=== PATIENT | female | born 1960 | race Caucasian/White ===

== ENCOUNTER → 2016-05-18 | Outpatient (CLI) | payer MEDICARE, MEDICAID | LOC: BFHH 16:54 | PROVIDERS: ATTEND Emergency Medicine | DX: E87.1 Hypo-osmolality and hyponatremia (principal); I50.9 Heart failure, unspecified ==

== ENCOUNTER → 2016-05-28 | Outpatient (CLI) | payer MEDICARE, MEDICAID | LOC: BFHH 16:00 | PROVIDERS: ATTEND Emergency Medicine | DX: E87.1 Hypo-osmolality and hyponatremia (principal) ==

== ENCOUNTER 2016-06-03 08:51 | Emergency (ER) | payer MEDICARE, MEDICAID ==
[2016-06-03] MEDS ORDERED: ASPIRIN (CHEWABLE) 81 MG TAB PO ONE (08:57)
--- NOTE | 2016-06-03 09:16 | RAD ---
EXAM DESCRIPTION: XR CHEST 1 VIEW CLINICAL HISTORY: 55 y/o F, dyspnea, chest pain COMPARISON: 12/13/2015. TECHNIQUE: Frontal radiograph of the chest. FINDINGS: The lungs are clear. The heart is at the upper limit of normal in size. There is no pneumothorax or pleural effusion. There is no acute fracture. IMPRESSION: No acute cardiopulmonary abnormality. Electronically signed by: Jean Carlos Silverman MD 06/03/2016 09:14
--- NOTE | 2016-06-03 09:23 | ED.PDOC ---
History of Present Illness - General Chief Complaint: Respiratory Problem Stated Complaint: shortness of breath Time Seen by Provider: 06/03/16 08:56 Source: patient Exam Limitations: no limitations - History of Present Illness Initial Comments: 55 yo F with CHF, IDDM, COPD. Patient presents with dyspnea since this morning. She had chest pain one hour ago that lasted 45 minutes. It was mid-sternal, sharp, non-radiating, + previous episodes, no modifying factors. No history of AMI in her family but her mother has "heart problems". Patient denies hx of AMI. Has chronic right pedal edema. 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 Smokes one ppd. + HTN. Has chronic dry cough. Also complains of a sore throat for one week. No other complaints. Timing/Duration: 1-3 hours Severity: mild Improving Factors: nothing Worsening Factors: nothing Associated Symptoms: chest pain, cough, shortness of breath Allergies/Adverse Reactions: Allergies Protective Adhesive Powder Allergy (Verified 02/05/16 07:11) Sumatriptan [From Imitrex] Allergy (Verified 02/05/16 07:11) Morphine Adverse Reaction (Verified 02/05/16 07:10) Other hallucinations after several doses Home Medications: Ambulatory Orders fentaNYL PATCH 50 MCG/HR [Duragesic Patch 50 MCG/HR] 50 mcg TOP Q72H 04/26/14 Potassium Chloride [Potassium Chloride ER] 20 meq PO BID #20 tab 02/24/15 Aspirin [Didier Low Dose] 81 mg PO DAILY 09/12/15 Atenolol [Tenormin] 50 mg PO DAILY 09/12/15 Gabapentin [Neurontin] 600 mg PO TID 09/12/15 Insulin Detemir [Levemir Pen] 40 unit SUBCU BID 09/12/15 Lisinopril 20 mg PO DAILY 09/12/15 Lorazepam 2 mg PO Q6H 09/12/15 Oral Electrolytes [Thermotabs] 3 tab PO TID 09/12/15 Aripiprazole [Abilify] 15 mg PO DAILY 12/13/15 Bupropion HCl [Wellbutrin Xl] 150 mg PO DAILY 12/13/15 Bupropion HCl [Wellbutrin Xl] 300 mg PO DAILY 12/13/15 Furosemide [Lasix] 80 mg PO DAILY 12/13/15 Insulin Aspart [Novolog] 0 - 12 unit SUBCU .SLIDING SCALE 12/13/15 Insulin Aspart [Novolog] 5 unit SUBCU AC 12/13/15 Loperamide HCl [Imodium A-D] 1 - 2 ea PO TID PRN 12/13/15 Montelukast Sodium [Singulair] 10 mg PO BID 12/13/15 tiZANidine [Zanaflex] 4 mg PO BEDTIME PRN 12/13/15 Cilostazol 50 mg PO BEDTIME 02/05/16 Esomeprazole Magnesium [Nexium] 40 mg PO DAILY 02/05/16 Hydrocodone-Acetaminophen [Hydrocodone Bitartrate/AC] 1 tab PO Q4H PRN 02/05/16 Ondansetron HCl [Zofran] 4 mg PO Q6H PRN #20 tab 02/05/16 Simvastatin [Zocor] 20 mg PO BEDTIME 02/05/16 Spironolactone 100 mg PO DAILY 02/05/16 Sulfa/Trimeth 800/160 (Ds) Tab [Bactrim DS Tab] 1 ea PO BID #6 tab 02/05/16 Tramadol HCl [Ultram] 50 mg PO BID PRN #10 tab 02/05/16 Review of Systems - Review of Systems Constitutional: States: no symptoms reported EENTM: States: see HPI Respiratory: States: see HPI Cardiology: States: see HPI Gastrointestinal/Abdominal: States: no symptoms reported Genitourinary: States: no symptoms reported Musculoskeletal: States: no symptoms reported Skin: States: no symptoms reported Neurological: States: no symptoms reported Endocrine: States: no symptoms reported Hematologic/Lymphatic: States: no symptoms reported Past Medical History (General) - Patient Medical History Hx Seizures: Yes Hx Stroke: Yes - TIA Hx Dementia: No Hx Asthma: Yes Hx of COPD: Yes Hx Cardiac Disorders: Yes - Hypercholesterolemia Hx Congestive Heart Failure: No Hx Pacemaker: No Hx Hypertension: Yes Hx Thyroid Disease: No Hx Diabetes: No Hx Gastroesophageal Reflux: Yes Hx Renal Disease: No Hx Cancer: No Hx of HIV: No Hx Hepatitis C: Yes Hx MRSA: No - Vaccination History Hx Tetanus, Diphtheria Vaccination: Yes Hx Influenza Vaccination: Yes - 2014 Hx Pneumococcal Vaccination: Yes - 2014 - Social History Hx Tobacco Use: Yes Hx Chewing Tobacco Use: No Hx Alcohol Use: No Hx Substance Use: Yes - heroin. quit 1991 Hx Substance Use Treatment: No Hx Depression: No Hx Physical Abuse: No Hx Emotional Abuse: No Hx Suspected Abuse: No - Female History Patient : No Family Medical History - Family History Father Living Status: Cause of : Lung CA Hx Family Hypertension: Yes Hx Family Cancer: Yes Age of Onset (years of age): concha Mother Family History: No Known Living Status: Still Living Hx Family Hypertension: Yes Physical Exam - Physical Exam General Appearance: Alert Ears, Nose, Throat: normal ENT inspection Neck: non-tender, full range of motion, supple Respiratory: other - distant breath sounds, + scant expiratory wheezes in upper lung bautista Cardiovascular/Chest: regular rate, rhythm Gastrointestinal/Abdominal: normal bowel sounds, non tender, soft Extremity: other - 1+ right pedal edema, non-pitting Skin Exam: normal color Lymphatic: no adenopathy Progress - Progress Progress: 06/03/16 11:43 Troponin negative. CXR unremarkable. BNP 23. Patient had an anxiety attack while in the E.D. and was crying. She was given ativan 0.5 mg IV x one and her sx resolved. NS 500 ml bolus x one due to increase in creatinine. Patient asked to wait for a second troponin to be done at 6 hours past her chest pain. She agreed at 5 hours and the troponin was done. However, the patient did not want to wait for a 6 hour and signed out AMA. 06/03/16 13:56 Departure - Departure Clinical Impression: Anxiety disorder, Chest pain Disposition: Left Against Medical Advice Condition: Good Diet: other - as per her primary care physician. Activity: increase activity as tolerated Home Medications: Ambulatory Orders fentaNYL PATCH 50 MCG/HR [Duragesic Patch 50 MCG/HR] 50 mcg TOP Q72H 04/26/14 Potassium Chloride [Potassium Chloride ER] 20 meq PO BID #20 tab 02/24/15 Aspirin [Didier Low Dose] 81 mg PO DAILY 09/12/15 Atenolol [Tenormin] 50 mg PO DAILY 09/12/15 Gabapentin [Neurontin] 600 mg PO TID 09/12/15 Insulin Detemir [Levemir Pen] 40 unit SUBCU BID 09/12/15 Lisinopril 20 mg PO DAILY 09/12/15 Lorazepam 2 mg PO Q6H 09/12/15 Oral Electrolytes [Thermotabs] 3 tab PO TID 09/12/15 Aripiprazole [Abilify] 15 mg PO DAILY 12/13/15 Bupropion HCl [Wellbutrin Xl] 150 mg PO DAILY 12/13/15 Bupropion HCl [Wellbutrin Xl] 300 mg PO DAILY 12/13/15 Furosemide [Lasix] 80 mg PO DAILY 12/13/15 Insulin Aspart [Novolog] 0 - 12 unit SUBCU .SLIDING SCALE 12/13/15 Insulin Aspart [Novolog] 5 unit SUBCU AC 12/13/15 Loperamide HCl [Imodium A-D] 1 - 2 ea PO TID PRN 12/13/15 Montelukast Sodium [Singulair] 10 mg PO BID 12/13/15 tiZANidine [Zanaflex] 4 mg PO BEDTIME PRN 12/13/15 Cilostazol 50 mg PO BEDTIME 02/05/16 Esomeprazole Magnesium [Nexium] 40 mg PO DAILY 02/05/16 Hydrocodone-Acetaminophen [Hydrocodone Bitartrate/AC] 1 tab PO Q4H PRN 02/05/16 Ondansetron HCl [Zofran] 4 mg PO Q6H PRN #20 tab 02/05/16 Simvastatin [Zocor] 20 mg PO BEDTIME 02/05/16 Spironolactone 100 mg PO DAILY 02/05/16 Sulfa/Trimeth 800/160 (Ds) Tab [Bactrim DS Tab] 1 ea PO BID #6 tab 02/05/16 Tramadol HCl [Ultram] 50 mg PO BID PRN #10 tab 02/05/16
[2016-06-03 09:24] VITALS: TEMP 97
[2016-06-03 09:28] VITALS: BP 124/60; O2SAT 94
[2016-06-03] MEDS ORDERED: SODIUM CHLORIDE 0.9% 1000ML 1,000 ML IVS ONE (11:05)
[2016-06-03] MEDS ORDERED: SODIUM CHLORIDE 0.9% 1000ML 500 ML IVS ONE (11:16)
== END 2016-06-03 13:30 | disposition left against medical advice (07) ==
LOC: ER 08:51
DX: R07.9 Chest pain, unspecified (principal); F41.9 Anxiety disorder, unspecified; J44.9 Chronic obstructive pulmonary disease, unspecified; E11.9 Type 2 diabetes mellitus without complications; Z89.512 Acquired absence of left leg below knee; F17.210 Nicotine dependence, cigarettes, uncomplicated; Z86.73 Personal history of transient ischemic attack (TIA), and cerebral infarction without residual deficits; E78.00 Pure hypercholesterolemia, unspecified; I10 Essential (primary) hypertension; K21.9 Gastro-esophageal reflux disease without esophagitis; Z86.19 Personal history of other infectious and parasitic diseases; Z79.899 Other long term (current) drug therapy; Z79.4 Long term (current) use of insulin; Z98.2 Presence of cerebrospinal fluid drainage device; Z88.6 Allergy status to analgesic agent; Z88.8 Allergy status to other drugs, medicaments and biological substances
CPT/HCPCS: 36415; 71010; 80053; 82550; 82553; 83735; 83880; 84484; 85025; 85610; 85730; 93005; J2060; J7030

== ENCOUNTER → 2016-06-25 | Outpatient (CLI) | payer MEDICARE, MEDICAID | END | disposition home or self-care (01) | LOC: BFHH 10:24 | PROVIDERS: ATTEND Emergency Medicine | DX: E22.2 Syndrome of inappropriate secretion of antidiuretic hormone (principal); I50.9 Heart failure, unspecified ==

== ENCOUNTER → 2016-07-10 | Outpatient (CLI) | payer MEDICARE, MEDICAID | LOC: BFHH 09:15 | PROVIDERS: ATTEND Emergency Medicine | DX: E22.2 Syndrome of inappropriate secretion of antidiuretic hormone (principal); I50.9 Heart failure, unspecified; E11.51 Type 2 diabetes mellitus with diabetic peripheral angiopathy without gangrene ==

== ENCOUNTER → 2016-07-25 | Outpatient (CLI) | payer MEDICARE, MEDICAID | END | disposition home or self-care (01) | LOC: BFHH 09:20 | PROVIDERS: ATTEND Emergency Medicine | DX: E87.1 Hypo-osmolality and hyponatremia (principal); E11.51 Type 2 diabetes mellitus with diabetic peripheral angiopathy without gangrene; J44.9 Chronic obstructive pulmonary disease, unspecified; I50.9 Heart failure, unspecified ==

== ENCOUNTER → 2016-08-02 | Outpatient (CLI) | payer MEDICARE, MEDICAID | END | disposition home or self-care (01) | LOC: BFHH 11:12 | PROVIDERS: ATTEND Emergency Medicine | DX: E87.1 Hypo-osmolality and hyponatremia (principal); E11.51 Type 2 diabetes mellitus with diabetic peripheral angiopathy without gangrene; J44.9 Chronic obstructive pulmonary disease, unspecified; I50.9 Heart failure, unspecified ==

== ENCOUNTER 2016-08-04 19:19 | Emergency (ER) | payer MEDICARE, MEDICAID ==
--- NOTE | 2016-08-04 19:52 | ED.PDOC ---
History of Present Illness - General Chief Complaint: General Stated Complaint: Flu like symptoms Time Seen by Provider: 08/04/16 19:51 Source: patient Exam Limitations: no limitations - History of Present Illness Initial Comments: Terrie Velazco 55 y/o male with history of diabetes,chf,copd stated for the last 3 days had nausea,vomiting and diarrhea .Today had generalized body aches, her nausea vomiting gone away but still with watery diarrhea.No ill contact, took Bactrim 2 weeks ago for infection on her bk amputation stump left leg. Timing/Duration: other - 3 days Severity: moderate Improving Factors: nothing Worsening Factors: nothing Associated Symptoms: other - body aches Allergies/Adverse Reactions: Allergies Protective Adhesive Powder Allergy (Verified 02/05/16 07:11) Sulfamethoxazole w/Trimethoprim [From Bactrim] Allergy (Verified 08/04/16 19:25) Sumatriptan [From Imitrex] Allergy (Verified 02/05/16 07:11) Morphine Adverse Reaction (Verified 02/05/16 07:10) Other hallucinations after several doses Home Medications: Ambulatory Orders fentaNYL PATCH 50 MCG/HR [Duragesic Patch 50 MCG/HR] 50 mcg TOP Q72H 04/26/14 Potassium Chloride [Potassium Chloride ER] 20 meq PO BID #20 tab 02/24/15 Aspirin [Didier Low Dose] 81 mg PO DAILY 09/12/15 Atenolol [Tenormin] 50 mg PO DAILY 09/12/15 Gabapentin [Neurontin] 600 mg PO TID 09/12/15 Insulin Detemir [Levemir Pen] 40 unit SUBCU BID 09/12/15 Lisinopril 20 mg PO DAILY 09/12/15 Lorazepam 2 mg PO Q6H 09/12/15 Oral Electrolytes [Thermotabs] 3 tab PO TID 09/12/15 Aripiprazole [Abilify] 15 mg PO DAILY 12/13/15 Bupropion HCl [Wellbutrin Xl] 150 mg PO DAILY 12/13/15 Bupropion HCl [Wellbutrin Xl] 300 mg PO DAILY 12/13/15 Furosemide [Lasix] 80 mg PO DAILY 12/13/15 Insulin Aspart [Novolog] 0 - 12 unit SUBCU .SLIDING SCALE 12/13/15 Insulin Aspart [Novolog] 5 unit SUBCU AC 12/13/15 Loperamide HCl [Imodium A-D] 1 - 2 ea PO TID PRN 12/13/15 Montelukast Sodium [Singulair] 10 mg PO BID 12/13/15 tiZANidine [Zanaflex] 4 mg PO BEDTIME PRN 12/13/15 Cilostazol 50 mg PO BEDTIME 02/05/16 Esomeprazole Magnesium [Nexium] 40 mg PO DAILY 02/05/16 Hydrocodone-Acetaminophen [Hydrocodone Bitartrate/AC] 1 tab PO Q4H PRN 02/05/16 Ondansetron HCl [Zofran] 4 mg PO Q6H PRN #20 tab 02/05/16 Simvastatin [Zocor] 20 mg PO BEDTIME 02/05/16 Spironolactone 100 mg PO DAILY 02/05/16 Sulfa/Trimeth 800/160 (Ds) Tab [Bactrim DS Tab] 1 ea PO BID #6 tab 02/05/16 Tramadol HCl [Ultram] 50 mg PO BID PRN #10 tab 02/05/16 Amoxicillin [Amoxil] 500 mg PO TID #30 cap 08/04/16 Review of Systems - Review of Systems Constitutional: States: see HPI EENTM: States: throat pain Respiratory: States: no symptoms reported Cardiology: States: no symptoms reported Gastrointestinal/Abdominal: States: see HPI Genitourinary: States: no symptoms reported Musculoskeletal: States: no symptoms reported Skin: States: no symptoms reported Neurological: States: no symptoms reported Endocrine: States: no symptoms reported Hematologic/Lymphatic: States: no symptoms reported Past Medical History (General) - Patient Medical History Hx Seizures: Yes Hx Stroke: Yes - TIA Hx Dementia: No Hx Asthma: Yes Hx of COPD: Yes Hx Cardiac Disorders: Yes - Hypercholesterolemia Hx Congestive Heart Failure: Yes Hx Pacemaker: No Hx Hypertension: Yes Hx Thyroid Disease: No Hx Diabetes: No Hx Gastroesophageal Reflux: Yes Hx Renal Disease: No Hx Cancer: No Hx of HIV: No Hx Hepatitis C: Yes Hx MRSA: No Surgical History: other - btl,cts,left b/k amputation - Vaccination History Hx Tetanus, Diphtheria Vaccination: Yes Hx Influenza Vaccination: No Hx Pneumococcal Vaccination: Yes Immunizations Up to Date: Yes - Social History Hx Tobacco Use: Yes Hx Chewing Tobacco Use: No Hx Alcohol Use: No Hx Substance Use: Yes - heroin. quit 1991 Hx Substance Use Treatment: No Hx Depression: No Hx Physical Abuse: No Hx Emotional Abuse: No Hx Suspected Abuse: No - Activities of Daily Living Patient Lives Alone: No Hospice Agency (if applicable):: None Grooming Ability: Independent Eating (Feeding) Ability: Independent Toileting Ability: Standby Assistance - Female History Patient is a Female of Child Bearing Age (10 -59 yrs old): Yes Patient : No Family Medical History - Family History Father Living Status: Cause of : Lung CA Hx Family Hypertension: Yes Hx Family Cancer: Yes - lung-dad Age of Onset (years of age): concha Mother Family History: No Known Living Status: Still Living Hx Family Hypertension: Yes Physical Exam - Physical Exam General Appearance: Alert, No apparent distress Eye Exam: bilateral normal Ears, Nose, Throat: hearing grossly normal, normal ENT inspection, normal pharynx Neck: non-tender, full range of motion, supple, normal inspection Respiratory: chest non-tender, lungs clear, normal breath sounds, no respiratory distress, no accessory muscle use Cardiovascular/Chest: normal peripheral pulses, regular rate, rhythm, no edema, no gallop, no JVD, no murmur Peripheral Pulses: radial,right: 2+, radial,left: 2+ Gastrointestinal/Abdominal: normal bowel sounds, non tender, soft, no organomegaly, no pulsatile mass Back Exam: normal inspection, no CVA tenderness, no vertebral tenderness Extremity: normal range of motion, non-tender, pedal edema, other - B/K amputation left leg Neurologic: no motor/sensory deficits, alert, normal mood/affect, oriented x 3 Skin Exam: normal color, warm/dry, rash - left leg Departure - Departure Clinical Impression: Streptococcal sore throat, Diarrhea Time of Disposition: 21:10 Disposition: Discharge to Home or Self Care Departure Forms: ED Discharge - Pt. Copy, Patient Portal Self Enrollment Instructions: Diarrhea Diet: bland diet - until better Referrals: MEKA ADAME [Primary Care Provider] - 1-2 Weeks Prescriptions: Amoxicillin [Amoxil] 500 mg PO TID #30 cap Home Medications: Ambulatory Orders fentaNYL PATCH 50 MCG/HR [Duragesic Patch 50 MCG/HR] 50 mcg TOP Q72H 04/26/14 Potassium Chloride [Potassium Chloride ER] 20 meq PO BID #20 tab 02/24/15 Aspirin [Didier Low Dose] 81 mg PO DAILY 09/12/15 Atenolol [Tenormin] 50 mg PO DAILY 09/12/15 Gabapentin [Neurontin] 600 mg PO TID 09/12/15 Insulin Detemir [Levemir Pen] 40 unit SUBCU BID 09/12/15 Lisinopril 20 mg PO DAILY 09/12/15 Lorazepam 2 mg PO Q6H 09/12/15 Oral Electrolytes [Thermotabs] 3 tab PO TID 09/12/15 Aripiprazole [Abilify] 15 mg PO DAILY 12/13/15 Bupropion HCl [Wellbutrin Xl] 150 mg PO DAILY 12/13/15 Bupropion HCl [Wellbutrin Xl] 300 mg PO DAILY 12/13/15 Furosemide [Lasix] 80 mg PO DAILY 12/13/15 Insulin Aspart [Novolog] 0 - 12 unit SUBCU .SLIDING SCALE 12/13/15 Insulin Aspart [Novolog] 5 unit SUBCU AC 12/13/15 Loperamide HCl [Imodium A-D] 1 - 2 ea PO TID PRN 12/13/15 Montelukast Sodium [Singulair] 10 mg PO BID 12/13/15 tiZANidine [Zanaflex] 4 mg PO BEDTIME PRN 12/13/15 Cilostazol 50 mg PO BEDTIME 02/05/16 Esomeprazole Magnesium [Nexium] 40 mg PO DAILY 02/05/16 Hydrocodone-Acetaminophen [Hydrocodone Bitartrate/AC] 1 tab PO Q4H PRN 02/05/16 Ondansetron HCl [Zofran] 4 mg PO Q6H PRN #20 tab 02/05/16 Simvastatin [Zocor] 20 mg PO BEDTIME 02/05/16 Spironolactone 100 mg PO DAILY 02/05/16 Sulfa/Trimeth 800/160 (Ds) Tab [Bactrim DS Tab] 1 ea PO BID #6 tab 02/05/16 Tramadol HCl [Ultram] 50 mg PO BID PRN #10 tab 02/05/16 Amoxicillin [Amoxil] 500 mg PO TID #30 cap 08/04/16 Additional Instructions: Avoid greasy spicy foods until better
[2016-08-04] MEDS ORDERED: SODIUM CHLORIDE 0.9% 500ML 500 ML IVS PRN (20:13)
[2016-08-04] MEDS ORDERED: cefTRIAXone SODIUM 1 GM VIAL IM ONE ×2 (20:58→21:02)
[2016-08-04] MEDS ORDERED: HYDROcodone 10MG/APAP 325MG 1 EA TAB PO ONE (20:59)
[2016-08-04] MEDS ORDERED: ONDANSETRON ODT 8 MG TAB SL ONE ×2 (20:59→21:03)
[2016-08-04] MEDS ORDERED: cefTRIAXone SODIUM 1 GM VIAL ONE (21:04)
[2016-08-04] MEDS ORDERED: LIDOCAINE 1% 10 ML VIAL INJ ONE (21:05)
[2016-08-04] MEDS ORDERED: ONDANSETRON ODT 8 MG TAB ONE (21:05)
[2016-08-04 21:38] VITALS: BP 190/90; TEMP 98.3; O2SAT 99
== END 2016-08-04 21:30 | disposition home or self-care (01) ==
LOC: ER 19:19
DX: J02.0 Streptococcal pharyngitis (principal); R19.7 Diarrhea, unspecified; J44.9 Chronic obstructive pulmonary disease, unspecified; E11.9 Type 2 diabetes mellitus without complications; E78.00 Pure hypercholesterolemia, unspecified; I11.0 Hypertensive heart disease with heart failure; I50.9 Heart failure, unspecified; K21.9 Gastro-esophageal reflux disease without esophagitis; Z86.73 Personal history of transient ischemic attack (TIA), and cerebral infarction without residual deficits; G40.909 Epilepsy, unspecified, not intractable, without status epilepticus; Z87.891 Personal history of nicotine dependence; Z79.82 Long term (current) use of aspirin; Z79.4 Long term (current) use of insulin; Z79.899 Other long term (current) drug therapy; Z88.8 Allergy status to other drugs, medicaments and biological substances; Z88.6 Allergy status to analgesic agent; Z89.512 Acquired absence of left leg below knee
CPT/HCPCS: 87502; 87880; J0696

== ENCOUNTER → 2016-08-09 | Outpatient (CLI) | payer MEDICARE, MEDICAID | END | disposition home or self-care (01) | LOC: BFHH 13:24 | PROVIDERS: ATTEND Emergency Medicine | DX: E87.1 Hypo-osmolality and hyponatremia (principal); E11.51 Type 2 diabetes mellitus with diabetic peripheral angiopathy without gangrene; J44.9 Chronic obstructive pulmonary disease, unspecified; I50.9 Heart failure, unspecified ==

== ENCOUNTER → 2016-08-15 | Outpatient (CLI) | payer MEDICARE, MEDICAID | END | disposition home or self-care (01) | LOC: BFHH 09:31 | PROVIDERS: ATTEND Emergency Medicine | DX: E87.1 Hypo-osmolality and hyponatremia (principal); K74.69 Other cirrhosis of liver; J44.9 Chronic obstructive pulmonary disease, unspecified; E11.51 Type 2 diabetes mellitus with diabetic peripheral angiopathy without gangrene ==

== ENCOUNTER → 2016-08-20 | Outpatient (CLI) | payer MEDICARE, MEDICAID | END | disposition home or self-care (01) | LOC: BFHH 10:30 | PROVIDERS: ATTEND Emergency Medicine | DX: E87.1 Hypo-osmolality and hyponatremia (principal) ==

== ENCOUNTER → 2016-08-27 | Outpatient (CLI) | payer MEDICARE, MEDICAID | END | disposition home or self-care (01) | LOC: BFHH 10:27 | PROVIDERS: ATTEND Emergency Medicine | DX: E87.1 Hypo-osmolality and hyponatremia (principal); K74.69 Other cirrhosis of liver; J44.9 Chronic obstructive pulmonary disease, unspecified; E11.51 Type 2 diabetes mellitus with diabetic peripheral angiopathy without gangrene ==

== ENCOUNTER 2016-09-11 04:49 | Emergency (ER) | payer MEDICARE, MEDICAID ==
[2016-09-11 05:04] VITALS: BP 152/81
[2016-09-11] MEDS ORDERED: HYOSCYAMINE SULFATE 0.5 MG/ML VIAL IV ONE (05:13)
[2016-09-11] MEDS ORDERED: IPRATROPIUM/ALBUTEROL 3 ML VIAL NEB ONE (05:15)
--- NOTE | 2016-09-11 05:18 | ED.PDOC ---
History of Present Illness - General Chief Complaint: Abdominal Pain Stated Complaint: stomach cramps, N/V/D Time Seen by Provider: 09/11/16 05:11 Information Source: patient, RN notes reviewed, Vital Signs reviewed Exam Limitations: no limitations - History of Present Illness Initial Comments: Patient is a 56 y/o female who has had severe diarrhea since about midnight. She vomited at 1900 yesterday and then was fine until the diarrhea started. She is having bowel movements every 15 minutes and it is watery. She has taken Pepto Bismol and Immodium without improvement. She is experiencing abdominal cramping which is severe, primarily in the upper abdomen. She started taking Clindamycin yesterday for prevention of an infection on her stump on the left. Abdominal Pain Onset Location: epigastric Pain Radiation: no radiation Quality: severe, cramping Timing/Duration: 4-6 hours Improving Factors: nothing Worsening Factors: nothing Associated Symptoms: diarrhea, nausea/vomiting Review of Systems - Review of Systems Constitutional: States: no symptoms reported. Denies: chills, fever EENTM: States: no symptoms reported Respiratory: States: short of breath Cardiology: States: no symptoms reported Gastrointestinal/Abdominal: States: abdominal pain, diarrhea, nausea, vomiting Genitourinary: States: no symptoms reported Musculoskeletal: States: no symptoms reported Skin: States: other - seeping at end of stump Neurological: States: anxiety Endocrine: States: no symptoms reported Hematologic/Lymphatic: States: no symptoms reported All other Systems: Reviewed and Negative Past Medical History (General) - Patient Medical History Hx Seizures: Yes Hx Stroke: Yes - TIA Hx Dementia: No Hx Asthma: Yes Hx of COPD: Yes Hx Cardiac Disorders: Yes - Hypercholesterolemia Hx Congestive Heart Failure: Yes Hx Pacemaker: No Hx Hypertension: Yes Hx Thyroid Disease: No Hx Diabetes: Yes Hx Gastroesophageal Reflux: Yes Hx Renal Disease: No Hx Cancer: No Hx of HIV: No Hx Hepatitis C: Yes Hx MRSA: No - Vaccination History Hx Tetanus, Diphtheria Vaccination: Yes Hx Influenza Vaccination: No Hx Pneumococcal Vaccination: Yes Immunizations Up to Date: Yes - Social History Hx Tobacco Use: Yes Hx Chewing Tobacco Use: No Hx Alcohol Use: No Hx Substance Use: Yes - heroin. quit 1991 Hx Substance Use Treatment: No Hx Depression: No Feels Threatened In Home Enviroment: No Feels Threatened In a Relationship: No Hx Physical Abuse: No Hx Emotional Abuse: No Hx Suspected Abuse: No - Female History Patient : No Family Medical History - Family History Father Living Status: Cause of : Lung CA Hx Family Hypertension: Yes Hx Family Cancer: Yes - lung-dad Age of Onset (years of age): concha Mother Family History: No Known Living Status: Still Living Hx Family Hypertension: Yes Physical Exam - Physical Exam General Appearance: Alert, Anxious, Obvious distress, Obese, Unkempt Eyes, Ears, Nose, Throat Exam: normal ENT inspection Neck: supple Respiratory: no respiratory distress, no accessory muscle use, rales, rhonchi, wheezing Cardiovascular/Chest: regular rate, rhythm, no murmur Gastrointestinal/Abdominal: abnormal bowel sounds - hyperactive, distended - mildly-primarily upper abdomen, tenderness - upper abdomen Extremity: other - left bka Neurologic: alert, oriented x 3, other - anxious Progress - Progress Progress: 09/11/16 07:[address] Scruggs at 0700. Departure - Departure Disposition: Discharge to Home or Self Care Departure Forms: ED Discharge - Pt. Copy, Patient Portal Self Enrollment Instructions: DI for Abdominal Pain-Adult Referrals: MEKA ADAME [Primary Care Provider] - 1-2 Weeks Home Medications: Ambulatory Orders fentaNYL PATCH 50 MCG/HR [Duragesic Patch 50 MCG/HR] 50 mcg TOP Q72H 04/26/14 Potassium Chloride [Potassium Chloride ER] 20 meq PO BID #20 tab 02/24/15 Aspirin [Didier Low Dose] 81 mg PO DAILY 09/12/15 Atenolol [Tenormin] 50 mg PO DAILY 09/12/15 Gabapentin [Neurontin] 600 mg PO TID 09/12/15 Insulin Detemir [Levemir Pen] 40 unit SUBCU BID 09/12/15 Lisinopril 20 mg PO DAILY 09/12/15 Lorazepam 2 mg PO Q6H 09/12/15 Oral Electrolytes [Thermotabs] 3 tab PO TID 09/12/15 Aripiprazole [Abilify] 15 mg PO DAILY 12/13/15 Bupropion HCl [Wellbutrin Xl] 150 mg PO DAILY 12/13/15 Bupropion HCl [Wellbutrin Xl] 300 mg PO DAILY 12/13/15 Furosemide [Lasix] 80 mg PO DAILY 12/13/15 Insulin Aspart [Novolog] 0 - 12 unit SUBCU .SLIDING SCALE 12/13/15 Insulin Aspart [Novolog] 5 unit SUBCU AC 12/13/15 Loperamide HCl [Imodium A-D] 1 - 2 ea PO TID PRN 12/13/15 Montelukast Sodium [Singulair] 10 mg PO BID 12/13/15 tiZANidine [Zanaflex] 4 mg PO BEDTIME PRN 12/13/15 Cilostazol 50 mg PO BEDTIME 02/05/16 Esomeprazole Magnesium [Nexium] 40 mg PO DAILY 02/05/16 Hydrocodone-Acetaminophen [Hydrocodone Bitartrate/AC] 1 tab PO Q4H PRN 02/05/16 Ondansetron HCl [Zofran] 4 mg PO Q6H PRN #20 tab 02/05/16 Simvastatin [Zocor] 20 mg PO BEDTIME 02/05/16 Spironolactone 100 mg PO DAILY 02/05/16 Sulfa/Trimeth 800/160 (Ds) Tab [Bactrim DS Tab] 1 ea PO BID #6 tab 02/05/16 Tramadol HCl [Ultram] 50 mg PO BID PRN #10 tab 02/05/16 Amoxicillin [Amoxil] 500 mg PO TID #30 cap 08/04/16
[2016-09-11] MEDS ORDERED: SODIUM CHLORIDE 0.9% 1000ML 1,000 ML IVS ONE (06:22)
--- NOTE | 2016-09-11 07:09 | RAD ---
EXAM DESCRIPTION: Abdomen 1 View CLINICAL HISTORY: 56 years Female, wheezing, rales/diarrhea, stomach cramps COMPARISON: None. FINDINGS: The bowel gas pattern is nonobstructive. No suspicious intra-abdominal calcification or mass is seen. The exam is slightly limited by underpenetrated technique and patient habitus. Inferior aspect of the pelvis is excluded. IMPRESSION: No acute findings, only slightly limited as described. Electronically signed by: Peter Keller MD 09/11/2016 7:08 AM CDT
--- NOTE | 2016-09-11 07:11 | RAD ---
EXAM DESCRIPTION: Chest,1 View CLINICAL HISTORY: wheezing, rales/diarrhea, stomach cramps COMPARISON: June 03, 2016 FINDINGS: The heart is at the upper limits of normal size, stable from the prior exam. Mediastinal contours are otherwise unremarkable. There is no airspace consolidation or pleural effusion. The bronchovascular markings are within normal limits, and the lungs are not hyperinflated. There is no pneumothorax or acute fracture. IMPRESSION: Negative exam. Electronically signed by: Peter Keller MD 09/11/2016 7:10 AM CDT
[2016-09-11] MEDS ORDERED: DIPHENOXYLATE HCL/ATROPINE 2.5 MG TAB PO ONE (07:48)
[2016-09-11] MEDS ORDERED: ONDANSETRON INJ 4 MG/2 ML VIAL IV ONE (07:48)
[2016-09-11 09:09] VITALS: TEMP 99; O2SAT 94
== END 2016-09-11 09:00 | disposition home or self-care (01) ==
LOC: ER 04:49
DX: K52.9 Noninfective gastroenteritis and colitis, unspecified (principal); J44.9 Chronic obstructive pulmonary disease, unspecified; E78.00 Pure hypercholesterolemia, unspecified; I11.0 Hypertensive heart disease with heart failure; I50.9 Heart failure, unspecified; E11.9 Type 2 diabetes mellitus without complications; K21.9 Gastro-esophageal reflux disease without esophagitis; Z86.19 Personal history of other infectious and parasitic diseases; Z87.891 Personal history of nicotine dependence; Z86.73 Personal history of transient ischemic attack (TIA), and cerebral infarction without residual deficits; Z79.4 Long term (current) use of insulin; Z79.82 Long term (current) use of aspirin; Z79.899 Other long term (current) drug therapy
CPT/HCPCS: 36415; 71010; 74000; 80053; 85025; 87045; 87046; 94640; J2405; J7030; J7620

== ENCOUNTER → 2016-09-17 | Outpatient (CLI) | payer MEDICARE, MEDICAID | END | disposition home or self-care (01) | LOC: BFHH 14:28 | PROVIDERS: ATTEND Emergency Medicine | DX: E87.1 Hypo-osmolality and hyponatremia (principal) ==

== ENCOUNTER 2016-09-22 07:11 | Emergency (ER) | payer MEDICARE, MEDICAID ==
--- NOTE | 2016-09-22 07:25 | ED.PDOC ---
History of Present Illness - General Chief Complaint: Abdominal Pain Stated Complaint: abdominal pain Time Seen by Provider: 09/22/16 07:15 Source: patient, RN notes reviewed, Vital Signs reviewed Exam Limitations: no limitations - History of Present Illness Initial Comments: Terrie Velazco 56 y/o female with multiple medical problem states that she has been experiencing intemittent shrp cramping abdominal pain for the last one week eating only small amount fearing it might make it worse.Denies diarrhea had hard stools today but had 3 x vomited.EGD and Colonoscopy done by his md. Timing/Duration: intermittent, other - one week Severity: moderate Improving Factors: nothing Worsening Factors: nothing Associated Symptoms: loss of appetite, nausea/vomiting Allergies/Adverse Reactions: Allergies Protective Adhesive Powder Allergy (Verified 09/11/16 05:04) Sulfamethoxazole w/Trimethoprim [From Bactrim] Allergy (Verified 09/11/16 05:04) Sumatriptan [From Imitrex] Allergy (Verified 09/11/16 05:04) Morphine Adverse Reaction (Verified 09/11/16 05:04) Other hallucinations after several doses Home Medications: Ambulatory Orders fentaNYL PATCH 50 MCG/HR [Duragesic Patch 50 MCG/HR] 50 mcg TOP Q72H 04/26/14 Potassium Chloride [Potassium Chloride ER] 20 meq PO BID #20 tab 02/24/15 Aspirin [Didier Low Dose] 81 mg PO DAILY 09/12/15 Atenolol [Tenormin] 50 mg PO DAILY 09/12/15 Gabapentin [Neurontin] 600 mg PO TID 09/12/15 Insulin Detemir [Levemir Pen] 70 unit SUBCU BID 09/12/15 Lisinopril 20 mg PO DAILY 09/12/15 Lorazepam 2 mg PO Q6H 09/12/15 Oral Electrolytes [Thermotabs] 3 tab PO TID 09/12/15 Aripiprazole [Abilify] 15 mg PO DAILY 12/13/15 Furosemide [Lasix] 80 mg PO DAILY 12/13/15 Insulin Aspart [Novolog] 0 - 12 unit SUBCU .SLIDING SCALE 12/13/15 Insulin Aspart [Novolog] 10 unit SUBCU AC 12/13/15 Loperamide HCl [Imodium A-D] 1 - 2 ea PO TID PRN 12/13/15 Montelukast Sodium [Singulair] 10 mg PO BID 12/13/15 tiZANidine [Zanaflex] 4 mg PO BEDTIME PRN 12/13/15 Cilostazol 50 mg PO BEDTIME 02/05/16 Esomeprazole Magnesium [Nexium] 40 mg PO DAILY 02/05/16 Hydrocodone-Acetaminophen [Hydrocodone Bitartrate/AC] 1 tab PO Q4H PRN 02/05/16 Simvastatin [Zocor] 20 mg PO BEDTIME 02/05/16 Ondansetron [Zofran Odt] 4 mg PO Q6HR PRN #20 tab 09/11/16 Hyoscyamine Sulfate [Levsin] 0.125 mg PO Q6HR PRN #30 tab 09/22/16 Ranitidine HCl 150 mg PO BID #60 tab 09/22/16 Review of Systems - Review of Systems Constitutional: States: no symptoms reported EENTM: States: no symptoms reported Respiratory: States: no symptoms reported Cardiology: States: no symptoms reported Gastrointestinal/Abdominal: States: see HPI, abdominal pain Genitourinary: States: no symptoms reported Musculoskeletal: States: no symptoms reported Skin: States: no symptoms reported Neurological: States: no symptoms reported Endocrine: States: no symptoms reported Hematologic/Lymphatic: States: no symptoms reported Past Medical History (General) - Patient Medical History Hx Seizures: Yes Hx Stroke: Yes - TIA Hx Dementia: No Hx Asthma: Yes Hx of COPD: Yes Hx Cardiac Disorders: Yes - Hypercholesterolemia Hx Congestive Heart Failure: Yes - had cardiac arrest Hx Pacemaker: No Hx Hypertension: Yes Hx Thyroid Disease: No Hx Diabetes: Yes Hx Gastroesophageal Reflux: Yes Hx Renal Disease: No Hx Cancer: No Hx of HIV: No Hx Hepatitis C: Yes Hx MRSA: No Surgical History: other - btl,right cts,left bka-leg gangrene Other Surgeries:: cataract-bilateral w/ lens implant - Vaccination History Hx Tetanus, Diphtheria Vaccination: Yes Hx Influenza Vaccination: No Hx Pneumococcal Vaccination: Yes - Social History Hx Tobacco Use: Yes Hx Chewing Tobacco Use: No Hx Alcohol Use: No Hx Substance Use: Yes - heroin. quit 1992 Hx Substance Use Treatment: No Hx Depression: No Hx Physical Abuse: No Hx Emotional Abuse: No Hx Suspected Abuse: No - Activities of Daily Living Patient Lives Alone: No - family Grooming Ability: Independent Eating (Feeding) Ability: Independent Toileting Ability: Minimum Assistance - Female History Patient is a Female of Child Bearing Age (10 -59 yrs old): No Patient : No Family Medical History - Family History Father Living Status: Cause of : Lung CA Hx Family Hypertension: Yes Hx Family Cancer: Yes - lung-dad Age of Onset (years of age): concha Mother Family History: No Known Living Status: Still Living Hx Family Hypertension: Yes Physical Exam - Physical Exam General Appearance: Alert, Anxious, No apparent distress Ears, Nose, Throat: hearing grossly normal, normal ENT inspection, normal pharynx Neck: non-tender, full range of motion Respiratory: chest non-tender, no respiratory distress, no accessory muscle use , other - coarse breath sounds Cardiovascular/Chest: normal peripheral pulses, regular rate, rhythm, no edema, no JVD, no murmur Peripheral Pulses: radial,right: 2+, radial,left: 2+ Gastrointestinal/Abdominal: normal bowel sounds, non tender, soft, tenderness - midabdomen no peritoneal signs Back Exam: normal inspection, no CVA tenderness, no vertebral tenderness Extremity: non-tender, no calf tenderness, pedal edema - right leg, other - BKA amputation left leg Neurologic: alert, normal mood/affect, oriented x 3 Skin Exam: normal color, warm/dry Lymphatic: no adenopathy Progress - Results/Orders Results/Orders: Vital Signs - 8 hr 09/22/16 07:20 Temperature 98.3 F Pulse Rate [ 60 left brachial] Respiratory 20 Rate Blood Pressure 181/74 [left brachial] O2 Sat by Pulse 95 Oximetry 09/22/16 07:28 URINE DRUG SCREEN, 7 ASSAY Stat 09/22/16 07:30 EKG STAT 09/22/16 08:52 Abdomen/Pelvis w/Contrast [CT] Stat 09/22/16 08:53 Hold Metformin x 48Hrs [id number] 09/22/16 09:11 URINALYSIS Stat 09/22/16 Breakfast 2000 Calorie ADA Diet Laboratory Results WBC 5.1 K/mm3 (4.8-10.8) 09/22/16 07:46 RBC 3.86 M/mm3 (4.20-5.40) L 09/22/16 07:46 Hgb 9.8 gm/dL (12.0-16.0) L 09/22/16 07:46 Hct 29.7 % (36.0-47.0) L 09/22/16 07:46 MCV 77.0 fl (81.0-99.0) L 09/22/16 07:46 MCH 25.3 pg (27.0-31.0) L 09/22/16 07:46 MCHC 32.9 g/dL (33.0-37.0) L 09/22/16 07:46 RDW 16.7 % (11.5-14.5) H 09/22/16 07:46 Plt Count 125 K/mm3 (130-400) L 09/22/16 07:46 MPV 9.1 fl (7.40-10.4) 09/22/16 07:46 Absolute Neuts (auto) 3.90 K/uL (1.8-6.8) 09/22/16 07:46 Absolute Lymphs (auto) 0.90 K/uL (1.0-3.4) L 09/22/16 07:46 Absolute Monos (auto) 0.20 K/uL (0.2-0.8) 09/22/16 07:46 Absolute Eos (auto) 0.00 K/uL (0.0-0.4) 09/22/16 07:46 Absolute Basos (auto) 0.10 K/uL (0.0-0.1) 09/22/16 07:46 Neutrophils % 76.5 % (42.0-78.0) 09/22/16 07:46 Lymphocytes % 16.6 % (20.0-50.0) L 09/22/16 07:46 Monocytes % 4.6 % (2.0-9.0) 09/22/16 07:46 Eosinophils % 0.8 % (1.0-5.0) L 09/22/16 07:46 Basophils % 1.5 % (0.0-2.0) 09/22/16 07:46 Sodium 135 mmol/L (135-145) 09/22/16 07:46 Potassium 3.3 mmol/L (3.6-5.0) L 09/22/16 07:46 Chloride 96 mmol/L (101-111) L 09/22/16 07:46 Carbon Dioxide 29 mmol/L (21-31) 09/22/16 07:46 Anion Gap 13.3 (12-18) 09/22/16 07:46 BUN 8 mg/dL (7-18) 09/22/16 07:46 Creatinine 0.93 mg/dL (0.6-1.3) 09/22/16 07:46 BUN/Creatinine Ratio 8.6 (10-20) L 09/22/16 07:46 Random Glucose 267 mg/dL (70-105) H 09/22/16 07:46 Serum Osmolality 277.8 mOsm/L (275-295) 09/22/16 07:46 Calcium 7.6 mg/dL (8.4-10.2) L 09/22/16 07:46 Total Bilirubin 0.6 mg/dL (0.2-1.0) 09/22/16 07:46 AST 36 IU/L (10-42) 09/22/16 07:46 ALT 16 IU/L (10-60) 09/22/16 07:46 Alkaline Phosphatase 60 IU/L (42-121) 09/22/16 07:46 B-Natriuretic Peptide 459.0 pg/ml (0-100) H* 09/22/16 08:52 Serum Total Protein 7.3 gm/dL (6.4-8.2) 09/22/16 07:46 Albumin 2.9 g/dl (3.2-5.5) L 09/22/16 07:46 Globulin 4.4 gm/dL (2.3-3.5) H 09/22/16 07:46 Albumin/Globulin Ratio 0.7 (1.1-1.9) L 09/22/16 07:46 Lipase 30 U/L (22-51) 09/22/16 07:46 09/22/16 07:30 EKG STAT 09/22/16 08:53 Hold Metformin x 48Hrs [id number] 09/22/16 Breakfast 2000 Calorie ADA Diet Laboratory Results WBC 5.1 K/mm3 (4.8-10.8) 09/22/16 07:46 RBC 3.86 M/mm3 (4.20-5.40) L 09/22/16 07:46 Hgb 9.8 gm/dL (12.0-16.0) L 09/22/16 07:46 Hct 29.7 % (36.0-47.0) L 09/22/16 07:46 MCV 77.0 fl (81.0-99.0) L 09/22/16 07:46 MCH 25.3 pg (27.0-31.0) L 09/22/16 07:46 MCHC 32.9 g/dL (33.0-37.0) L 09/22/16 07:46 RDW 16.7 % (11.5-14.5) H 09/22/16 07:46 Plt Count 125 K/mm3 (130-400) L 09/22/16 07:46 MPV 9.1 fl (7.40-10.4) 09/22/16 07:46 Absolute Neuts (auto) 3.90 K/uL (1.8-6.8) 09/22/16 07:46 Absolute Lymphs (auto) 0.90 K/uL (1.0-3.4) L 09/22/16 07:46 Absolute Monos (auto) 0.20 K/uL (0.2-0.8) 09/22/16 07:46 Absolute Eos (auto) 0.00 K/uL (0.0-0.4) 09/22/16 07:46 Absolute Basos (auto) 0.10 K/uL (0.0-0.1) 09/22/16 07:46 Neutrophils % 76.5 % (42.0-78.0) 09/22/16 07:46 Lymphocytes % 16.6 % (20.0-50.0) L 09/22/16 07:46 Monocytes % 4.6 % (2.0-9.0) 09/22/16 07:46 Eosinophils % 0.8 % (1.0-5.0) L 09/22/16 07:46 Basophils % 1.5 % (0.0-2.0) 09/22/16 07:46 Sodium 135 mmol/L (135-145) 09/22/16 07:46 Potassium 3.3 mmol/L (3.6-5.0) L 09/22/16 07:46 Chloride 96 mmol/L (101-111) L 09/22/16 07:46 Carbon Dioxide 29 mmol/L (21-31) 09/22/16 07:46 Anion Gap 13.3 (12-18) 09/22/16 07:46 BUN 8 mg/dL (7-18) 09/22/16 07:46 Creatinine 0.93 mg/dL (0.6-1.3) 09/22/16 07:46 BUN/Creatinine Ratio 8.6 (10-20) L 09/22/16 07:46 Random Glucose 267 mg/dL (70-105) H 09/22/16 07:46 Serum Osmolality 277.8 mOsm/L (275-295) 09/22/16 07:46 Calcium 7.6 mg/dL (8.4-10.2) L 09/22/16 07:46 Total Bilirubin 0.6 mg/dL (0.2-1.0) 09/22/16 07:46 AST 36 IU/L (10-42) 09/22/16 07:46 ALT 16 IU/L (10-60) 09/22/16 07:46 Alkaline Phosphatase 60 IU/L (42-121) 09/22/16 07:46 B-Natriuretic Peptide 459.0 pg/ml (0-100) H* 09/22/16 08:52 Serum Total Protein 7.3 gm/dL (6.4-8.2) 09/22/16 07:46 Albumin 2.9 g/dl (3.2-5.5) L 09/22/16 07:46 Globulin 4.4 gm/dL (2.3-3.5) H 09/22/16 07:46 Albumin/Globulin Ratio 0.7 (1.1-1.9) L 09/22/16 07:46 Lipase 30 U/L (22-51) 09/22/16 07:46 Urine Color Yellow (Yellow) 09/22/16 09:11 Urine Appearance Clear (Clear) 09/22/16 09:11 Urine pH 5.5 (4.5-7.8) 09/22/16 09:11 Ur Specific [place] 1.020 (1.005-1.030) 09/22/16 09:11 Urine Protein 100 mg/dL H 09/22/16 09:11 Urine Glucose (UA) Negative mg/dL (Negative) 09/22/16 09:11 Urine Ketones Negative mg/dL (NEGATIVE) 09/22/16 09:11 Urine Blood Moderate (Negative) H 09/22/16 09:11 Urine Nitrite Negative 09/22/16 09:11 Urine Bilirubin Small (NEGATIVE) H 09/22/16 09:11 Urine Urobilinogen 1.0 mg/dL (0.2-1.0) 09/22/16 09:11 Ur Leukocyte Esterase Negative (Negative) 09/22/16 09:11 Urine RBC 5-10 /hpf H 09/22/16 09:11 Urine WBC 0 /hpf 09/22/16 09:11 Ur Epithelial Cells 1-3 /hpf 09/22/16 09:11 Urine Bacteria 0 09/22/16 09:11 Urine Opiates Screen Positive ng/mL (2000) H 09/22/16 07:28 Urine Barbiturates Negative ng/mL (200) 09/22/16 07:28 Ur Phencyclidine Scrn Negative ng/mL (25) 09/22/16 07:28 U Amphetamin/Meth Scrn Negative ng/mL (1000) 09/22/16 07:28 U Benzodiazepines Scrn Positive ng/mL (200) H 09/22/16 07:28 U Cocaine Metab Screen Negative ng/mL (300) 09/22/16 07:28 U Cannabinoids Screen Negative ng/mL (50) 09/22/16 07:28 1027H Discuss with patient all test result explaining no acute ct abdomen findings that she needs to follow up with her primary md for her stated complaints for further evaluation. - EKG/XRAY/CT EKG: Sinus, no ST T wave changes Comments: Heart Rate 61;qt-487; XRAY: chest - borderline cardiomegaly with central vascular congestion,no tristen pulmonary edema per radiologist CT Ordered: Yes - liver cirrhosis no appy no diverticulitis,no gallstone,no ureterolithiasis Departure - Departure Clinical Impression: Abdominal pain Qualifiers: Abdominal location: generalized Qualified Code(s): R10.84 - Generalized abdominal pain Time of Disposition: 10:33 Disposition: Discharge to Home or Self Care Condition: Fair Departure Forms: ED Discharge - Pt. Copy, Patient Portal Self Enrollment Instructions: DI for Abdominal Pain-Adult Diet: low fat, low cholesterol, low salt diet, other - Avoid spicy,greasy foods Referrals: MEKA ADAME [Primary Care Provider] - 1-2 Weeks Prescriptions: Hyoscyamine Sulfate [Levsin] 0.125 mg PO Q6HR PRN #30 tab PRN Reason: Abdominal Cramping Ranitidine HCl 150 mg PO BID #60 tab Home Medications: Ambulatory Orders fentaNYL PATCH 50 MCG/HR [Duragesic Patch 50 MCG/HR] 50 mcg TOP Q72H 04/26/14 Potassium Chloride [Potassium Chloride ER] 20 meq PO BID #20 tab 02/24/15 Aspirin [Didier Low Dose] 81 mg PO DAILY 09/12/15 Atenolol [Tenormin] 50 mg PO DAILY 09/12/15 Gabapentin [Neurontin] 600 mg PO TID 09/12/15 Insulin Detemir [Levemir Pen] 70 unit SUBCU BID 09/12/15 Lisinopril 20 mg PO DAILY 09/12/15 Lorazepam 2 mg PO Q6H 09/12/15 Oral Electrolytes [Thermotabs] 3 tab PO TID 09/12/15 Aripiprazole [Abilify] 15 mg PO DAILY 12/13/15 Furosemide [Lasix] 80 mg PO DAILY 12/13/15 Insulin Aspart [Novolog] 0 - 12 unit SUBCU .SLIDING SCALE 12/13/15 Insulin Aspart [Novolog] 10 unit SUBCU AC 12/13/15 Loperamide HCl [Imodium A-D] 1 - 2 ea PO TID PRN 12/13/15 Montelukast Sodium [Singulair] 10 mg PO BID 12/13/15 tiZANidine [Zanaflex] 4 mg PO BEDTIME PRN 12/13/15 Cilostazol 50 mg PO BEDTIME 02/05/16 Esomeprazole Magnesium [Nexium] 40 mg PO DAILY 02/05/16 Hydrocodone-Acetaminophen [Hydrocodone Bitartrate/AC] 1 tab PO Q4H PRN 02/05/16 Simvastatin [Zocor] 20 mg PO BEDTIME 02/05/16 Ondansetron [Zofran Odt] 4 mg PO Q6HR PRN #20 tab 09/11/16 Hyoscyamine Sulfate [Levsin] 0.125 mg PO Q6HR PRN #30 tab 09/22/16 Ranitidine HCl 150 mg PO BID #60 tab 09/22/16
[2016-09-22 07:26] VITALS: TEMP 98.3
[2016-09-22] MEDS ORDERED: LACTATED RINGERS 1,000 ML IVS ONE (07:26)
[2016-09-22] MEDS ORDERED: DICYCLOMINE HCL INJ 20 MG/2 ML AMP IM ONE (07:29)
[2016-09-22] MEDS ORDERED: PANTOPRAZOLE INJECTION 80 MG in SODIUM CHLORIDE 0.9% 100ML 80 ML IVPB ONE (07:29)
[2016-09-22] MEDS ORDERED: PANTOPRAZOLE SODIUM IV 40 MG VIAL ONE (08:00)
[2016-09-22] MEDS ORDERED: SODIUM CHLORIDE 0.9% 100ML 100 ML IVPB ONE (08:00)
[2016-09-22] MEDS ORDERED: HYDROcodone 10MG/APAP 325MG 1 EA TAB PO ONE (08:02)
--- NOTE | 2016-09-22 08:02 | RAD ---
Procedure: XR CHEST 1 VIEW Exam Date: 09/22/2016 Ordering Provider: Josr Islas Clinical Indication: sob Comparison: 09/11/2016 Findings: Cardiac silhouette: Borderline enlarged Pulmonary vasculature : Prominence of the central pulmonary vasculature and interstitium bilaterally. Mediastinal contour: Normal Aortic contour: Normal Focal lung consolidation: None Pleural effusion: No large pleural effusions Pneumothorax: None Acute bony or soft tissue abnormality: None Impression: 1. Borderline cardiomegaly with central vascular congestion. 2. No tristen pulmonary edema. Electronically signed by: Bhavin Carr MD 09/22/2016 8:01 AM CDT
[2016-09-22] MEDS ORDERED: fentaNYL CITRATE INJ 50 MCG/ML AMP IV ONE (08:47)
[2016-09-22 09:00] VITALS: O2SAT 94
[2016-09-22] MEDS ORDERED: HYOSCYAMINE SULFATE 0.5 MG/ML VIAL IV ONE (09:01)
[2016-09-22] MEDS ORDERED: INSULIN DETEMIR 100 UNITS/ML PEN SUBCU ONE (09:38)
--- NOTE | 2016-09-22 09:51 | CT ---
PROCEDURE: Abdomen/Pelvis w/Contrast HISTORY: pain Indication: Abdominal pain Comparison: 02/27/2016 and 05/27/2015 . Technique: CT of the abdomen and pelvis was done with intravenous contrast. Images were obtained from the lung base to the level of the pubic symphysis in axial plane, followed by orthogonal sagittal and coronal reconstruction. Oral contrast was not given for the study. The patient was injected with contrast intravenously, without any documented immediate adverse reactions. This exam was performed according to our departmental dose-optimization program, which includes automated exposure control, adjustment of the mA and/or KV according to the patient's size and/or use of iterative reconstruction technique. FINDINGS: Images through the lung bases do not show any focal infiltrates or pleural effusions. There is a stable 3 mm noncalcified nodule in the periphery of the right middle lobe of the lung, unchanged since May 2015 The liver once again shows a nodular contour, suspicious for underlying changes of cirrhosis and there is mild hepatomegaly. Spleen remains enlarged, measuring 18 cm in length. Note is made of mild perisplenic varices The gallbladder, pancreas and the bilateral adrenal glands appear unremarkable. The bilateral kidneys enhance with contrast in a normal fashion. The urinary bladder is unremarkable . The bilateral ureters and the bilateral periureteral soft tissues and fat planes are unremarkable. The small bowel appears unremarkable, without any evidence of small bowel obstruction or bowel wall thickening. There is no CT evidence of acute appendicitis, pericecal inflammatory change or ileocecal mesenteric adenitis. The ileocecal junction appears unremarkable. There is no CT evidence of acute colonic diverticulitis or colitis or large bowel obstruction. The splenic and portal veins are of normal caliber, without any filling defects. There is no pathological lymphadenopathy in the retroperitoneum or in the pelvic region. There is no evidence of free fluid or free air in the abdomen or the pelvic region. There is no clinically significant abdominal aortic aneurysm. There is no clinically significant inguinal or ventral hernia. The visualized lumbar spine shows underlying degenerative change at L5/S1 level . The paravertebral soft tissues are unremarkable. The remainder of the pelvic structures are unremarkable. IMPRESSION: The liver once again shows a nodular contour, suspicious for underlying changes of cirrhosis and there is mild hepatomegaly. Spleen remains enlarged, measuring 18 cm in length. Note is made of mild perisplenic varices. There is a stable 3 mm noncalcified nodule in the periphery of the right middle lobe of the lung, unchanged since May 2015. As per the best practices no further follow-up of this nodule is suggested Electronically signed by: Eron Mcmahan MD 09/22/2016 9:51 AM CDT
[2016-09-22 11:01] VITALS: BP 172/82
== END 2016-09-22 10:44 | disposition home or self-care (01) ==
LOC: ER 07:11
DX: R10.84 Generalized abdominal pain (principal); J44.9 Chronic obstructive pulmonary disease, unspecified; I11.0 Hypertensive heart disease with heart failure; I50.9 Heart failure, unspecified; E11.9 Type 2 diabetes mellitus without complications; B19.20 Unspecified viral hepatitis C without hepatic coma; Z86.74 Personal history of sudden cardiac arrest; Z86.73 Personal history of transient ischemic attack (TIA), and cerebral infarction without residual deficits; Z87.891 Personal history of nicotine dependence; Z89.512 Acquired absence of left leg below knee
CPT/HCPCS: 36415; 71010; 74177; 80053; 80307; 81001; 83690; 83880; 85025; 93005; J0500; J1815; J3010; J7050; J7120

== ENCOUNTER → 2016-09-24 | Outpatient (CLI) | payer MEDICARE, MEDICAID | END | disposition home or self-care (01) | LOC: BFHH 12:08 | PROVIDERS: ATTEND Emergency Medicine | DX: E87.1 Hypo-osmolality and hyponatremia (principal) ==

== ENCOUNTER → 2016-10-01 | Outpatient (CLI) | payer MEDICARE, MEDICAID | END | disposition home or self-care (01) | LOC: BFHH 10:56 | PROVIDERS: ATTEND Emergency Medicine | DX: E87.1 Hypo-osmolality and hyponatremia (principal) ==

== ENCOUNTER 2016-10-09 05:00 | Emergency (ER) | payer MEDICARE, MEDICAID ==
[2016-10-09 05:20] VITALS: BP 158/88; TEMP 95.6; O2SAT 100
--- NOTE | 2016-10-09 05:25 | ED.PDOC ---
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 Had pain and swelling of her thumb afterwards. Occurred: this evening Pain - Upper Extremity: moderate: Hand, left Method of Injury: fell Improving Factors: rest Worsening Factors: movement Associated Symptoms: no head/neck injuries Allergies/Adverse Reactions: Allergies Protective Adhesive Powder Allergy (Verified 10/09/16 05:20) Sulfamethoxazole w/Trimethoprim [From Bactrim] Allergy (Verified 10/09/16 05:20) Sumatriptan [From Imitrex] Allergy (Verified 10/09/16 05:20) Morphine Adverse Reaction (Verified 10/09/16 05:20) Other hallucinations after several doses Home Medications: Ambulatory Orders RX: fentaNYL PATCH 50 MCG/HR [Duragesic Patch 50 MCG/HR] 50 mcg TOP Q72H RX: Atenolol [Tenormin] 50 mg PO DAILY 09/12/15 RX: Gabapentin [Neurontin] 600 mg PO TID 09/12/15 RX: Insulin Detemir [Levemir Pen] 70 unit SUBCU BID 09/12/15 RX: Lisinopril 20 mg PO DAILY 09/12/15 RX: Lorazepam 2 mg PO TID 09/12/15 RX: Oral Electrolytes [Thermotabs] 3 tab PO TID 09/12/15 RX: Aripiprazole [Abilify] 15 mg PO DAILY 12/13/15 RX: Furosemide [Lasix] 80 mg PO DAILY 12/13/15 RX: Insulin Aspart [Novolog] 0 - 12 unit SUBCU .SLIDING SCALE 12/13/15 RX: Insulin Aspart [Novolog] 10 unit SUBCU AC 12/13/15 RX: Loperamide HCl [Imodium A-D] 1 - 2 ea PO TID PRN 12/13/15 RX: Montelukast [Singulair] 10 mg PO BEDTIME 12/13/15 RX: tiZANidine [Zanaflex] 4 mg PO BEDTIME 12/13/15 Esomeprazole Magnesium [Nexium] 40 mg PO DAILY 02/05/16 RX: Cilostazol 50 mg PO BEDTIME 02/05/16 Simvastatin [Zocor] 20 mg PO DAILY 02/05/16 Ondansetron [Zofran Odt] 4 mg PO Q6HR PRN #20 tab 09/11/16 Hyoscyamine Sulfate [Levsin] 0.125 mg PO Q6HR PRN #30 tab 09/22/16 RX: Ranitidine HCl 150 mg PO BID #60 tab 09/22/16 HYDROcodone 10MG/APAP 325MG [[place] 10/325] 1 tab PO Q4HR PRN 10/09/16 Mirtazapine [Remeron] 15 mg PO BEDTIME 10/09/16 RX: Potassium Chloride [Potassium Chloride ER] 20 meq PO DAILY 10/09/16 RX: Spironolactone 25 mg PO DAILY 10/09/16 Trolamine Salicylate [Aspercreme] 10 % EX TID #1 tube 10/09/16 Review of Systems - Review of Systems Constitutional: States: no symptoms reported EENTM: States: no symptoms reported Respiratory: States: no symptoms reported Cardiology: States: no symptoms reported Gastrointestinal/Abdominal: States: no symptoms reported Genitourinary: States: no symptoms reported Musculoskeletal: States: joint pain - left thumb, joint swelling Skin: States: no symptoms reported Neurological: States: no symptoms reported Endocrine: States: no symptoms reported Hematologic/Lymphatic: States: no symptoms reported Past Medical History (General) - Patient Medical History Hx Seizures: Yes Hx Stroke: Yes - TIA Hx Dementia: No Hx Asthma: Yes Hx of COPD: Yes Hx Cardiac Disorders: Yes - Hypercholesterolemia Hx Congestive Heart Failure: Yes - had cardiac arrest Hx Pacemaker: No Hx Hypertension: Yes Hx Thyroid Disease: No Hx Diabetes: Yes Hx Gastroesophageal Reflux: Yes Hx Renal Disease: No Hx Cancer: No Hx of HIV: No Hx Hepatitis C: Yes Hx MRSA: No Surgical History: other - btl,right CTS,left BKA-leg gangrene,fransisco.cataract w/ iol implant - Vaccination History Hx Tetanus, Diphtheria Vaccination: Yes Hx Influenza Vaccination: No Hx Pneumococcal Vaccination: Yes Immunizations Up to Date: Yes - Social History Hx Tobacco Use: Yes Hx Chewing Tobacco Use: No Hx Alcohol Use: No Hx Substance Use: Yes - heroin. quit 1991 Hx Substance Use Treatment: No Hx Depression: No Feels Threatened In Home Enviroment: No Feels Threatened In a Relationship: No Hx Physical Abuse: No Hx Emotional Abuse: No Hx Suspected Abuse: No - Activities of Daily Living Patient Lives Alone: No - Grooming Ability: Independent Eating (Feeding) Ability: Independent Toileting Ability: Minimum Assistance - Female History Patient is a Female of Child Bearing Age (10 -59 yrs old): No Patient : No Family Medical History - Family History Father Age (years): 74 Living Status: Cause of : Lung CA Hx Family Hypertension: Yes Hx Family Cancer: Yes - lung-dad Age of Onset (years of age): concha Mother Family History: No Known Living Status: Still Living Hx Family Hypertension: Yes Physical Exam - Physical Exam General Appearance: Alert, Anxious, No apparent distress Eyes, Ears, Nose, Throat Exam: PERRL/EOMI, TMs normal, pharynx normal Neck: non-tender, full range of motion, supple Cardiovascular/Respiratory: regular rate, rhythm, no M/R/G, normal peripheral pulses, no JVD, normal breath sounds Abdominal Exam: non-tender, no organomegaly Back Exam: normal inspection, no CVA tenderness, no vertebral tenderness Shoulder Exam: normal inspection, no evidence of injury Elbow/Forearm Exam: normal inspection, no evidence of injury Wrist Exam: normal inspection, no evidence of injury Hand Exam: limited ROM - left thumb, soft tissue tenderness, swelling Neuro/Tendon: normal sensation, normal motor functions, normal tendon functions , no evidence tendon injury Mental Status: alert, oriented x 3 Skin Exam: normal color, warm/dry Progress - EKG/XRAY/CT XRAY: hand - left minimally displaced fracture proximal phalanx thumb either chronic or acute/radiologist Procedures - Splinting Left Thumb Pre-Made Type: velcro Splint: thumb spica Pre-Proc Neuro Vasc Exam: normal Post-Proc Neuro Vasc Exam: normal Departure - Departure Clinical Impression: Avulsion fracture of left thumb Qualifiers: Encounter type: initial encounter Fracture type: closed Qualified Code(s): S62.502A - Fracture of unspecified phalanx of left thumb, initial encounter for closed fracture Time of Disposition: 06:12 Disposition: Discharge to Home or Self Care Departure Forms: ED Discharge - Pt. Copy, Patient Portal Self Enrollment Instructions: Finger Fracture, DI for Finger Fracture Referrals: MEKA ADAME [Primary Care Provider] - 1-2 Weeks Prescriptions: Trolamine Salicylate [Aspercreme] 10 % EX TID #1 tube Home Medications: Ambulatory Orders RX: fentaNYL PATCH 50 MCG/HR [Duragesic Patch 50 MCG/HR] 50 mcg TOP Q72H RX: Atenolol [Tenormin] 50 mg PO DAILY 09/12/15 RX: Gabapentin [Neurontin] 600 mg PO TID 09/12/15 RX: Insulin Detemir [Levemir Pen] 70 unit SUBCU BID 09/12/15 RX: Lisinopril 20 mg PO DAILY 09/12/15 RX: Lorazepam 2 mg PO TID 09/12/15 RX: Oral Electrolytes [Thermotabs] 3 tab PO TID 09/12/15 RX: Aripiprazole [Abilify] 15 mg PO DAILY 12/13/15 RX: Furosemide [Lasix] 80 mg PO DAILY 12/13/15 RX: Insulin Aspart [Novolog] 0 - 12 unit SUBCU .SLIDING SCALE 12/13/15 RX: Insulin Aspart [Novolog] 10 unit SUBCU AC 12/13/15 RX: Loperamide HCl [Imodium A-D] 1 - 2 ea PO TID PRN 12/13/15 RX: Montelukast [Singulair] 10 mg PO BEDTIME 12/13/15 RX: tiZANidine [Zanaflex] 4 mg PO BEDTIME 12/13/15 Esomeprazole Magnesium [Nexium] 40 mg PO DAILY 02/05/16 RX: Cilostazol 50 mg PO BEDTIME 02/05/16 Simvastatin [Zocor] 20 mg PO DAILY 02/05/16 Ondansetron [Zofran Odt] 4 mg PO Q6HR PRN #20 tab 09/11/16 Hyoscyamine Sulfate [Levsin] 0.125 mg PO Q6HR PRN #30 tab 09/22/16 RX: Ranitidine HCl 150 mg PO BID #60 tab 09/22/16 HYDROcodone 10MG/APAP 325MG [[place] 10/325] 1 tab PO Q4HR PRN 10/09/16 Mirtazapine [Remeron] 15 mg PO BEDTIME 10/09/16 RX: Potassium Chloride [Potassium Chloride ER] 20 meq PO DAILY 10/09/16 RX: Spironolactone 25 mg PO DAILY 10/09/16 Trolamine Salicylate [Aspercreme] 10 % EX TID #1 tube 10/09/16 Additional Instructions: Continue with ice pack 20 minutes 3 x a day during waking hours only until better;elevate left hand 20 degrees at bedtime until better
[2016-10-09] MEDS ORDERED: HYDROcodone 7.5MG/APAP 325MG 1 EA TAB PO ONE ×2 (05:42)
[2016-10-09] MEDS ORDERED: HYDROcodone 7.5MG/APAP 325MG 1 EA TAB ONE (05:44)
--- NOTE | 2016-10-09 06:03 | RAD ---
Procedure: XR HAND 3 OR MORE VIEWS Exam Date: 10/09/2016 Ordering Provider: Josr Islas Clinical Indication: fall Comparison: 09/19/2015 Findings: Minimally displaced fracture at the base of the proximal phalanx of the thumb may be chronic. There is no adjacent soft tissue swelling appreciated. No other fracture or dislocation in the left hand. There are no lytic or sclerotic lesions. There is no radiopaque foreign body. There is no subcutaneous gas. Impression: 1.Minimally displaced fracture at the base of the proximal phalanx of the thumb may be chronic. There is no adjacent soft tissue swelling appreciated. 2.No other fracture or dislocation in the left hand. Electronically signed by: Bhavin Carr MD 10/09/2016 6:04 AM CDT
== END 2016-10-09 06:21 | disposition home or self-care (01) ==
LOC: ER 05:00
DX: S62.502A Fracture of unspecified phalanx of left thumb, initial encounter for closed fracture (principal); I11.0 Hypertensive heart disease with heart failure; I50.9 Heart failure, unspecified; E78.00 Pure hypercholesterolemia, unspecified; E11.9 Type 2 diabetes mellitus without complications; K21.9 Gastro-esophageal reflux disease without esophagitis; J44.9 Chronic obstructive pulmonary disease, unspecified; Z86.74 Personal history of sudden cardiac arrest; Z88.6 Allergy status to analgesic agent; Z88.8 Allergy status to other drugs, medicaments and biological substances; Z86.19 Personal history of other infectious and parasitic diseases; Z79.4 Long term (current) use of insulin; Z87.891 Personal history of nicotine dependence; Z86.73 Personal history of transient ischemic attack (TIA), and cerebral infarction without residual deficits; Z79.899 Other long term (current) drug therapy; W06.XXXA Fall from bed, initial encounter; Y92.003 Bedroom of unspecified non-institutional (private) residence as the place of occurrence of the external cause

== ENCOUNTER → 2016-10-09 | Outpatient (CLI) | payer MEDICARE, MEDICAID | END | disposition home or self-care (01) | LOC: BFHH 10:16 | PROVIDERS: ATTEND Emergency Medicine | DX: E87.1 Hypo-osmolality and hyponatremia (principal); L03.116 Cellulitis of left lower limb; E11.51 Type 2 diabetes mellitus with diabetic peripheral angiopathy without gangrene; J44.9 Chronic obstructive pulmonary disease, unspecified ==

== ENCOUNTER → 2016-10-15 | Outpatient (CLI) | payer MEDICARE, MEDICAID | END | disposition home or self-care (01) | LOC: BFHH 11:18 | PROVIDERS: ATTEND Emergency Medicine | DX: E87.1 Hypo-osmolality and hyponatremia (principal); L03.116 Cellulitis of left lower limb; J44.9 Chronic obstructive pulmonary disease, unspecified ==

== ENCOUNTER 2016-10-18 12:03 | Emergency (ER) | payer MEDICARE, MEDICAID ==
[2016-10-18 12:17] VITALS: TEMP 97.9
[2016-10-18] MEDS ORDERED: METOCLOPRAMIDE HCL INJ 10 MG/2 ML VIAL IV ONE (12:24)
[2016-10-18] MEDS ORDERED: SODIUM CHLORIDE 0.9% 1000ML 1,000 ML IVS ONE (12:25)
[2016-10-18] MEDS ORDERED: HYOSCYAMINE SULFATE 0.5 MG/ML VIAL IV ONE (12:25)
--- NOTE | 2016-10-18 12:26 | ED.PDOC ---
History of Present Illness - General Chief Complaint: GI Problem Stated Complaint: hurts all over Time Seen by Provider: 10/18/16 12:23 Information Source: patient, RN notes reviewed - History of Present Illness Initial Comments: SHE ATE SOME CANNED SOUP LAST NIGHT AND A POTATO WITH BAXTER. SHE DID WELL UNTIL THIS AM WHEN SHE STARTED WITH VOMITING AND SOME DIARRHEA, APPROXIMATELY 6 EPISODES. NOW IN THE ED. SHE HAS DIABETES AND ONE YEAR AGO HAD A BKA. Abdominal Pain Onset Location: generalized abdomen Quality: moderate Timing/Duration: 4-6 hours Worsening Factors: nothing Associated Symptoms: denies symptoms Review of Systems - Review of Systems Constitutional: States: weakness. Denies: chills, fever EENTM: Denies: eye pain, blurred vision Respiratory: States: no symptoms reported. Denies: cough, orthopnea Cardiology: States: no symptoms reported Gastrointestinal/Abdominal: States: abdominal pain, diarrhea, vomiting Genitourinary: States: no symptoms reported Musculoskeletal: States: no symptoms reported Skin: States: no symptoms reported Neurological: States: no symptoms reported Endocrine: States: no symptoms reported Hematologic/Lymphatic: States: no symptoms reported Past Medical History (General) - Patient Medical History Hx Seizures: No Hx Stroke: No Hx Dementia: No Hx Asthma: No Hx of COPD: Yes Hx Cardiac Disorders: Yes Hx Congestive Heart Failure: No Hx Pacemaker: No Hx Hypertension: Yes Hx Thyroid Disease: No Hx Diabetes: Yes Hx Gastroesophageal Reflux: Yes Hx Renal Disease: No Hx Cancer: No Hx of HIV: No Hx Hepatitis C: Yes Hx MRSA: No - Vaccination History Hx Tetanus, Diphtheria Vaccination: Yes Hx Influenza Vaccination: No Hx Pneumococcal Vaccination: Yes - Social History Hx Tobacco Use: Yes Hx Chewing Tobacco Use: No Hx Alcohol Use: No Hx Substance Use: No Hx Substance Use Treatment: No Hx Depression: Yes Hx Physical Abuse: No Hx Emotional Abuse: No Hx Suspected Abuse: No - Female History Patient is a Female of Child Bearing Age (10 -59 yrs old): No Patient : No Family Medical History - Family History Father Age (years): 74 Living Status: Cause of : Lung CA Hx Family Hypertension: Yes Hx Family Cancer: Yes - lung-dad Age of Onset (years of age): concha Mother Family History: No Known Living Status: Still Living Hx Family Hypertension: Yes Physical Exam - Physical Exam General Appearance: Alert, Anxious, Restless - ACTIVELY VOMITING Eyes, Ears, Nose, Throat Exam: normal ENT inspection Neck: non-tender Respiratory: chest non-tender, lungs clear, normal breath sounds, no respiratory distress Cardiovascular/Chest: normal peripheral pulses, regular rate, rhythm, no edema, no gallop Peripheral Pulses: Other - BKA LEFT LOWER LEG Gastrointestinal/Abdominal: normal bowel sounds, distended, tenderness - DIFFUSE ABDOMINAL TENDERNESS Back Exam: normal inspection Extremity: pedal edema - ON THE RIGHT LEG Neurologic: integrity engineer II-XII nml as tested, alert Skin Exam: normal color Lymphatic: no adenopathy Progress - Progress Progress: 10/18/16 15:12 CBC IS REPORTED: WBC OF 4.8, 74% NEUTROPHILS, CMP: CREAT 0.9, UA IS NORMAL Departure - Departure Clinical Impression: Gastroenteritis and colitis, viral Time of Disposition: 15:14 Disposition: Discharge to Home or Self Care Departure Forms: ED Discharge - Pt. Copy, Patient Portal Self Enrollment Diet: bland diet Referrals: MEKA ADAME [Primary Care Provider] - 1-2 Weeks Prescriptions: Metoclopramide Tab [Reglan Tab] 10 mg PO TID 14 Days Home Medications: Ambulatory Orders fentaNYL PATCH 50 MCG/HR [Duragesic Patch 50 MCG/HR] 50 mcg TOP Q72H 04/26/14 Atenolol [Tenormin] 50 mg PO DAILY 09/12/15 Gabapentin [Neurontin] 600 mg PO TID 09/12/15 Insulin Detemir [Levemir Pen] 70 unit SUBCU BID 09/12/15 Lisinopril 20 mg PO DAILY 09/12/15 Lorazepam 2 mg PO TID 09/12/15 Oral Electrolytes [Thermotabs] 3 tab PO TID 09/12/15 Aripiprazole [Abilify] 15 mg PO DAILY 12/13/15 Furosemide [Lasix] 80 mg PO DAILY 12/13/15 Insulin Aspart [Novolog] 0 - 12 unit SUBCU .SLIDING SCALE 12/13/15 Insulin Aspart [Novolog] 10 unit SUBCU AC 12/13/15 Loperamide HCl [Imodium A-D] 1 - 2 ea PO TID PRN 12/13/15 Montelukast [Singulair] 10 mg PO BEDTIME 12/13/15 tiZANidine [Zanaflex] 4 mg PO BEDTIME 12/13/15 Cilostazol 50 mg PO BEDTIME 02/05/16 Esomeprazole Magnesium [Nexium] 40 mg PO DAILY 02/05/16 Simvastatin [Zocor] 20 mg PO DAILY 02/05/16 Ondansetron [Zofran Odt] 4 mg PO Q6HR PRN #20 tab 09/11/16 Hyoscyamine Sulfate [Levsin] 0.125 mg PO Q6HR PRN #30 tab 09/22/16 Ranitidine HCl 150 mg PO BID #60 tab 09/22/16 HYDROcodone 10MG/APAP 325MG [[place] 10/325] 1 tab PO Q4HR PRN 10/09/16 Mirtazapine [Remeron] 15 mg PO BEDTIME 10/09/16 Potassium Chloride [Potassium Chloride ER] 20 meq PO DAILY 10/09/16 Spironolactone 25 mg PO DAILY 10/09/16 Trolamine Salicylate [Aspercreme] 10 % EX TID #1 tube 10/09/16 Metoclopramide Tab [Reglan Tab] 10 mg PO TID 14 Days 10/18/16
[2016-10-18] MEDS ORDERED: MORPHINE SULFATE INJ 10 MG/ML VIAL IV ONE (14:25)
[2016-10-18] MEDS ORDERED: ONDANSETRON INJ 4 MG/2 ML VIAL IV ONE (14:27)
[2016-10-18 15:46] VITALS: O2SAT 97
[2016-10-18 15:47] VITALS: BP 164/71
== END 2016-10-18 15:46 | disposition home or self-care (01) ==
LOC: ER 12:03
DX: A08.4 Viral intestinal infection, unspecified (principal); J44.9 Chronic obstructive pulmonary disease, unspecified; I10 Essential (primary) hypertension; E11.9 Type 2 diabetes mellitus without complications; K21.9 Gastro-esophageal reflux disease without esophagitis; B19.20 Unspecified viral hepatitis C without hepatic coma; Z87.891 Personal history of nicotine dependence; Z79.4 Long term (current) use of insulin; Z79.899 Other long term (current) drug therapy
CPT/HCPCS: 80053; 81001; 83690; 85025; J2270; J2405; J2765; J7030

== ENCOUNTER → 2016-10-22 | Outpatient (CLI) | payer MEDICARE, MEDICAID | END | disposition home or self-care (01) | LOC: BFHH 12:00 | PROVIDERS: ATTEND Emergency Medicine | DX: E87.1 Hypo-osmolality and hyponatremia (principal); E11.51 Type 2 diabetes mellitus with diabetic peripheral angiopathy without gangrene; J44.9 Chronic obstructive pulmonary disease, unspecified; R30.0 Dysuria ==

== ENCOUNTER 2016-10-27 00:11 | Inpatient (IN) | payer MEDICARE, MEDICAID ==
[2016-10-27] MEDS ORDERED: IPRATROPIUM/ALBUTEROL 3 ML VIAL NEB ONE (00:33)
--- NOTE | 2016-10-27 00:49 | RAD ---
EXAM DESCRIPTION: Chest,1 View CLINICAL HISTORY: 56 years Female hypoxia COMPARISON: 09/22/2016 FINDINGS: Heart appears mildly prominent. There is prominence of the central bony vasculature similar to the previous study. No new area of consolidation is noted. IMPRESSION: Cardiomegaly with central pulmonary vascular congestion and mild peribronchial or cuffing. Findings may reflect developing edema or infectious etiology No tristen consolidation Electronically signed by: Carley Torres 10/27/2016 12:48 AM CDT
[2016-10-27] MEDS ORDERED: FUROSEMIDE INJ 100 MG/10 ML VIAL IV ONE (01:09)
--- NOTE | 2016-10-27 01:19 | ED.PDOC ---
History of Present Illness - General Chief Complaint: Neuro Symptoms/Deficits Stated Complaint: altered mental status Time Seen by Provider: 10/27/16 00:24 Source: patient, family Exam Limitations: clinical condition - History of Present Illness Initial Comments: Patient presents with AMS since about noon. Her said that she was confused and reaching for "things that weren't there". He also states that she has become increasingly sleepy. Often nodding off during the middle of a conversatin. He is not aware of any other symptoms. She says that she is short of breath and sleepy. No other history is available from her. Timing/Duration: other - 12 hours Severity: moderate Improving Factors: nothing Worsening Factors: nothing Associated Symptoms: shortness of breath Allergies/Adverse Reactions: Allergies Protective Adhesive Powder Allergy (Verified 10/27/16 00:58) Sulfamethoxazole w/Trimethoprim [From Bactrim] Allergy (Verified 10/27/16 00:58) Sumatriptan [From Imitrex] Allergy (Verified 10/27/16 00:58) Morphine Adverse Reaction (Verified 10/27/16 00:58) Other hallucinations after several doses Home Medications: Ambulatory Orders fentaNYL PATCH 50 MCG/HR [Duragesic Patch 50 MCG/HR] 50 mcg TOP Q72H 04/26/14 Atenolol [Tenormin] 50 mg PO DAILY 09/12/15 Gabapentin [Neurontin] 600 mg PO TID 09/12/15 Insulin Detemir [Levemir Pen] 70 unit SUBCU BID 09/12/15 Lisinopril 20 mg PO DAILY 09/12/15 Lorazepam 2 mg PO TID 09/12/15 Oral Electrolytes [Thermotabs] 3 tab PO TID 09/12/15 Aripiprazole [Abilify] 15 mg PO DAILY 12/13/15 Furosemide [Lasix] 80 mg PO DAILY 12/13/15 Insulin Aspart [Novolog] 0 - 12 unit SUBCU .SLIDING SCALE 12/13/15 Insulin Aspart [Novolog] 10 unit SUBCU AC 12/13/15 Loperamide HCl [Imodium A-D] 1 - 2 ea PO TID PRN 12/13/15 Montelukast [Singulair] 10 mg PO BEDTIME 12/13/15 tiZANidine [Zanaflex] 4 mg PO BEDTIME 12/13/15 Cilostazol 50 mg PO BEDTIME 02/05/16 Esomeprazole Magnesium [Nexium] 40 mg PO DAILY 02/05/16 Simvastatin [Zocor] 20 mg PO DAILY 02/05/16 Ondansetron [Zofran Odt] 4 mg PO Q6HR PRN #20 tab 09/11/16 Hyoscyamine Sulfate [Levsin] 0.125 mg PO Q6HR PRN #30 tab 09/22/16 Ranitidine HCl 150 mg PO BID #60 tab 09/22/16 HYDROcodone 10MG/APAP 325MG [[place] 10/325] 1 tab PO Q4HR PRN 10/09/16 Mirtazapine [Remeron] 15 mg PO BEDTIME 10/09/16 Potassium Chloride [Potassium Chloride ER] 20 meq PO DAILY 10/09/16 Spironolactone 25 mg PO DAILY 10/09/16 Trolamine Salicylate [Aspercreme] 10 % EX TID #1 tube 10/09/16 Metoclopramide Tab [Reglan Tab] 10 mg PO TID 14 Days 10/18/16 Review of Systems - Review of Systems Constitutional: States: no symptoms reported EENTM: States: no symptoms reported Respiratory: States: see HPI Cardiology: States: no symptoms reported Gastrointestinal/Abdominal: States: no symptoms reported Unable to Obtain Due To: condition, clinical condition Past Medical History (General) - Patient Medical History Hx Seizures: No Hx Stroke: No Hx Dementia: No Hx Asthma: No Hx of COPD: Yes Hx Cardiac Disorders: Yes Hx Congestive Heart Failure: No Hx Pacemaker: No Hx Hypertension: Yes Hx Thyroid Disease: No Hx Diabetes: Yes Hx Gastroesophageal Reflux: Yes Hx Renal Disease: No Hx Cancer: No Hx of HIV: No Hx Hepatitis C: Yes Hx MRSA: No - Vaccination History Hx Tetanus, Diphtheria Vaccination: Yes Hx Influenza Vaccination: No Hx Pneumococcal Vaccination: Yes - Social History Hx Tobacco Use: Yes Hx Chewing Tobacco Use: No Hx Alcohol Use: No Hx Substance Use: No Hx Substance Use Treatment: No Hx Depression: Yes Hx Physical Abuse: No Hx Emotional Abuse: No Hx Suspected Abuse: No - Female History Patient : No Family Medical History - Family History Father Age (years): 74 Living Status: Cause of : Lung CA Hx Family Hypertension: Yes Hx Family Cancer: Yes - lung-dad Age of Onset (years of age): concha Mother Family History: No Known Living Status: Still Living Hx Family Hypertension: Yes Physical Exam - Physical Exam General Appearance: Lethargic Eye Exam: bilateral normal Respiratory: other - Inspiratory and expiratory wheezes in right upper lobe. Expiratory wheezes in left upper lobe Cardiovascular/Chest: regular rate, rhythm Gastrointestinal/Abdominal: normal bowel sounds, non tender, soft Extremity: other - Left AKA. Right non-pitting pedal edema. Neurologic: no motor/sensory deficits Skin Exam: normal color Progress - Progress Progress: 10/27/16 01:45 EKG showed NSR with no ST changes nor T wave inversions. No LBBB. Troponin negative. BNP 264. CXR showed developing congestion vs. infiltrate. wbc wnl. ABG wnl, see below. Patient given Lasix 80 mg IV x one. Solumedrol 62.5 mg IV x one. Admitted for CHF exacerbation, COPD exacerbation, and hypoxia. Laboratory Tests 10/27/16 10/27/16 10/27/16 00:30 00:45 00:50 WBC RBC Hgb Hct MCV MCH MCHC RDW Plt Count MPV Absolute Neuts (auto) Absolute Lymphs (auto) Absolute Monos (auto) Absolute Eos (auto) Absolute Basos (auto) Neutrophils % Lymphocytes % Monocytes % Eosinophils % Basophils % PT INR PTT (SP) pCO2 47 H pO2 68 L HCO3 25.0 ABG pH 7.350 ABG O2 Saturation 94.0 L ABG Base Excess -0.3 ABG Deoxyhemoglobin 5.6 H Oxyhemoglobin % 88.1 L Carboxyhemoglobin % 5.6 H Methemoglobin % Sat 0.7 Calc Total Hemoglobin 8.7 L Sodium 132 L Potassium 4.1 Chloride 98 L Carbon Dioxide 26 Anion Gap 12.1 BUN 24 H Creatinine 1.87 H BUN/Creatinine Ratio 12.8 POC Glucose 142 H Random Glucose 144 H Serum Osmolality 271.1 L Calcium 7.5 L Total Bilirubin 0.8 AST 28 ALT 12 Alkaline Phosphatase 59 Creatine Kinase 143 H CK-MB (CK-2) 2.5 CK-MB (CK-2) % Not Reportable Troponin I < 0.02 B-Natriuretic Peptide 264.0 H* Serum Total Protein 7.7 Albumin 2.9 L Globulin 4.8 H Albumin/Globulin Ratio 0.6 L 06/17/17 06/17/17 00:50 00:50 WBC 5.8 RBC 3.86 L Hgb 9.6 L Hct 29.4 L MCV 76.2 L MCH 24.8 L MCHC 32.5 L RDW 17.9 H Plt Count 142 MPV 9.0 Absolute Neuts (auto) 4.10 Absolute Lymphs (auto) 1.00 Absolute Monos (auto) 0.50 Absolute Eos (auto) 0.10 Absolute Basos (auto) 0.10 Neutrophils % 71.8 Lymphocytes % 17.7 L Monocytes % 7.9 Eosinophils % 1.3 Basophils % 1.3 PT 13.4 H INR 1.190 PTT (SP) 31.3 pCO2 pO2 HCO3 ABG pH ABG O2 Saturation ABG Base Excess ABG Deoxyhemoglobin Oxyhemoglobin % Carboxyhemoglobin % Methemoglobin % Sat Calc Total Hemoglobin Sodium Potassium Chloride Carbon Dioxide Anion Gap BUN Creatinine BUN/Creatinine Ratio POC Glucose Random Glucose Serum Osmolality Calcium Total Bilirubin AST ALT Alkaline Phosphatase Creatine Kinase CK-MB (CK-2) CK-MB (CK-2) % Troponin I B-Natriuretic Peptide Serum Total Protein Albumin Globulin Albumin/Globulin Ratio - EKG/XRAY/CT CT Ordered: No CT Interpretation Call Back: No Departure - Departure Clinical Impression: Hypoxia, COPD exacerbation, CHF (congestive heart failure), NYHA class II Disposition: Admit Patient Condition: Fair Departure Forms: ED Discharge - Pt. Copy, Patient Portal Self Enrollment Diet: other - as per hospitalist Activity: other - as per hospitalist Referrals: MEKA ADAME [Primary Care Provider] - 1-2 Weeks Home Medications: Ambulatory Orders fentaNYL PATCH 50 MCG/HR [Duragesic Patch 50 MCG/HR] 50 mcg TOP Q72H 04/26/14 Atenolol [Tenormin] 50 mg PO DAILY 09/12/15 Gabapentin [Neurontin] 600 mg PO TID 09/12/15 Insulin Detemir [Levemir Pen] 70 unit SUBCU BID 09/12/15 Lisinopril 20 mg PO DAILY 09/12/15 Lorazepam 2 mg PO TID 09/12/15 Oral Electrolytes [Thermotabs] 3 tab PO TID 09/12/15 Aripiprazole [Abilify] 15 mg PO DAILY 12/13/15 Furosemide [Lasix] 80 mg PO DAILY 12/13/15 Insulin Aspart [Novolog] 0 - 12 unit SUBCU .SLIDING SCALE 12/13/15 Insulin Aspart [Novolog] 10 unit SUBCU AC 12/13/15 Loperamide HCl [Imodium A-D] 1 - 2 ea PO TID PRN 12/13/15 Montelukast [Singulair] 10 mg PO BEDTIME 12/13/15 tiZANidine [Zanaflex] 4 mg PO BEDTIME 12/13/15 Cilostazol 50 mg PO BEDTIME 02/05/16 Esomeprazole Magnesium [Nexium] 40 mg PO DAILY 02/05/16 Simvastatin [Zocor] 20 mg PO DAILY 02/05/16 Ondansetron [Zofran Odt] 4 mg PO Q6HR PRN #20 tab 09/11/16 Hyoscyamine Sulfate [Levsin] 0.125 mg PO Q6HR PRN #30 tab 09/22/16 Ranitidine HCl 150 mg PO BID #60 tab 09/22/16 HYDROcodone 10MG/APAP 325MG [[place] 10/325] 1 tab PO Q4HR PRN 10/09/16 Mirtazapine [Remeron] 15 mg PO BEDTIME 10/09/16 Potassium Chloride [Potassium Chloride ER] 20 meq PO DAILY 10/09/16 Spironolactone 25 mg PO DAILY 10/09/16 Trolamine Salicylate [Aspercreme] 10 % EX TID #1 tube 10/09/16 Metoclopramide Tab [Reglan Tab] 10 mg PO TID 14 Days 10/18/16
[2016-10-27] MEDS ORDERED: methylPREDNISolone SODIUM SUC 125 MG/2 ML VIAL IV ONE (01:29)
[2016-10-27] MEDS ORDERED: MAGNESIUM HYDROXIDE 30 ML UD PO PRN (02:18)
[2016-10-27] MEDS ORDERED: DEXTROSE 50% 25 GM/50 ML SYG IV PRN (02:18)
[2016-10-27] MEDS ORDERED: ONDANSETRON INJ 4 MG/2 ML VIAL IV PRN (02:18)
[2016-10-27] MEDS ORDERED: ACETAMINOPHEN 325 MG TAB PO PRN (02:18)
[2016-10-27] MEDS ORDERED: GLUCAGON INJ 1 MG VIAL SUBCU PRN (02:18)
[2016-10-27] MEDS ORDERED: NITROGLYCERIN 0.4 MG 25 EA TAB SL PRN (02:18)
[2016-10-27] MEDS ORDERED: ALBUTEROL SULFATE 2.5 MG/3 ML VIAL NEB PRN (02:18)
[2016-10-27] MEDS ORDERED: SODIUM CHLORIDE 0.9% (FLUSH) 10 ML SYG IV PRN (02:18)
[2016-10-27] MEDS ORDERED: IV SET AND CAP CHANGE INJ INJ SCH (02:30)
[2016-10-27] MEDS ORDERED: SODIUM CHLORIDE 0.9% 1000ML 1,000 ML IVS PRN (02:52)
[2016-10-27] MEDS ORDERED: MEROPENEM 1 GM in SODIUM CHL 0.9% 50ML MIN-BAG+ 50 ML IVPB SCH (03:00)
[2016-10-27] MEDS ORDERED: SODIUM CHL 0.9% 50ML MIN-BAG+ 50 ML IVPB ONE (03:02)
[2016-10-27] MEDS ORDERED: MEROPENEM 1 GM VIAL IVPB ONE (03:02)
[2016-10-27 05:54] VITALS: BP 168/99; TEMP 98.9; O2SAT 97
[2016-10-27] MEDS ORDERED: INSULIN LISPRO 100 UNITS/ML PEN SUBCU SCH (07:00)
--- NOTE | 2016-10-27 07:12 | CT ---
EXAM: CT head without contrast. INDICATION: Headache. TECHNIQUE: Contiguous axial CT images of the brain. Intravenous contrast: Absent. DLP 773 mGy-cm. This exam was performed according to our departmental dose-optimization program, which includes automated exposure control, adjustment of the mA and/or kV according to patient size and/or use of iterative reconstruction technique. COMPARISON: None. FINDINGS: Subcutaneous: Unremarkable. No acute intracranial hemorrhage. No midline shift. No mass effect. Ventricles: No hydrocephalus. Kilpatrick-white differentiation preserved. Paranasal sinuses/mastoid air cells: Visualized portions are aerated. Bones/orbits: Visualized portions are unremarkable. IMPRESSION: 1. No CT evidence of acute intracranial hemorrhage. Electronically signed by: Jean Carlos Silverman MD 10/27/2016 7:11 AM CDT Workstation: [id number]
[2016-10-27] MEDS ORDERED: IPRATROPIUM/ALBUTEROL 3 ML VIAL NEB SCH (08:00)
[2016-10-27] MEDS ORDERED: NYSTATIN POWDER 15GM BTTL TOP SCH (09:00)
[2016-10-27] MEDS ORDERED: FUROSEMIDE INJ 40 MG/4 ML VIAL IV SCH (09:00)
--- NOTE | 2016-10-28 12:36 | SSS ---
SUPERVISING PHYSICIAN: Wade Mills M.D. CHIEF COMPLAINT: Altered mental status. Dysuria. HISTORY OF PRESENT ILLNESS: Ms. Velazco is a 56 year-old female patient that presented to the Emergency Department with complaint by her family that she had an acute mental status change that started around noon. Her noted that she had been confused and was reaching for things that were not there. He also noted that she had become increasingly sleepy. She is often nodding off during the middle of her conversations and meals. She notes that she was short of breath and sleepy, and was actually alert and easily arousable in the Emergency Department. Laboratory studies were completed and showed CBC to have a white count of 5.8, hemoglobin 9.6, hematocrit 29.4 with differential showing to be within normal limits. Blood gas analysis showed pH of 7.35 with PO2 of 68 with PCO2 of 47 with bicarb 25, satting 94% on 2 liters nasal cannula. Chemistries showed a low sodium of 132, potassium 4.1, BUN 24, creatinine 1.87. Blood sugar is 144, lactic acid 1, serum osmolality 271. Liver function showed to be within normal limits as well as troponin was less than 0.02. She had a slightly elevated BNP of 264 with TSH of 2.83. Urinalysis showed a small amount of blood, positive nitrites with a moderate amount of leukocyte esterase with microscopic revealing greater than 50 WBCs and 2+ bacteria. Toxicology screen showed positive for opioids and Benzodiazepines, negative for all other substances tested. She also had a rapid Strep that was positive. Given her symptomology, Dr. Cabello felt that the patient was having a mild exacerbation of her congestive heart failure and requested that the patient be placed in Observation for further treatment and evaluation. The patient was placed in Observation in stable condition. PAST MEDICAL HISTORY: 1. Hypertension. 2. Gastroesophageal reflux disease. 3. Chronic anxiety disorder. 4. Diabetes mellitus on insulin therapy. 5. Hyponatremia. 6. Hypomagnesemia. 7. 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 PAST SURGICAL HISTORY: 1. Tubal ligation. 2. History of tracheostomy. 3. Upper and lower endoscopies. 4. Left lczzm-xds-ssor amputation in August of 2015. CURRENT MEDICATIONS: Please refer to the list of nurses' verified medicines in the electronic medical records. ALLERGIES: HYDROCODONE, EVEN THOUGH SHE DOES TAKE MORPHINE WITHOUT ANY PROBLEMS. FAMILY HISTORY: Lung cancer, hypertension and diabetes. SOCIAL HISTORY: The patient is disabled. She currently smokes over a pack a day. She sees Dr. Gtz in [place] in the clinic and has had pain management in the past. She denies any illicit or alcohol usage. REVIEW OF SYSTEMS: The patient denies any fevers, chills or weakness. Just notes that she is somewhat sleepy. HEENT: No hearing or visual disturbances. LUNGS: She has some shortness of breath with a cough but is not producing sputum and as noted in the History of Present Illness has had some dyspnea prior to admission. CARDIOVASCULAR: No significant palpitations or chest pains. GASTROINTESTINAL: Notes that she has had problems in the past with her gallbladder and is awaiting gallbladder surgery, but currently has no discomfort. She was previously in the [facility] this past week for gastroenteritis but is no longer having diarrhea or any abdominal pains. GENITOURINARY: Notes that she has been having dysuria for the last several days. NEUROLOGIC: She has no focal weakness. She does have significant phantom pain to the left lower leg stump. PHYSICAL EXAMINATION: VITAL SIGNS: Temperature on admission was 100.8, prior to discharge it was 98.9. Pulse 61, blood pressure 142/73, respirations 18, satting 93% on room air at discharge. She was showing temperature 98.9 with pulse 69 and blood pressure 168/99, satting 97% on nasal cannula at rest with respirations 20. Admission weight was 135.9 kg. GENERAL: The patient is lethargic but appears to be comfortable and she is easily arousable, and actually smiles when you start asking her questions. HEENT: Tympanic membranes are occluded bilaterally with cerumen. Oropharynx is pink and moist without any lesions. There is no jugular venous distention. CHEST: Some mild inspiratory and expiratory wheezing in the upper right lobe. No rhonchi or rales are noted. CARDIOVASCULAR: Heart is regular rate and rhythm without appreciable murmurs, gallops, or rubs. ABDOMEN: Soft, non-tender. Positive bowel sounds, but obese. EXTREMITIES: Left dpnlf-rvy-pzlk amputation. No edema, cyanosis or clubbing on he right lower extremity. NEUROLOGIC: On exam once awake, cranial nerves II-XII are grossly intact. Facial features are symmetrical. Extraocular movements are within normal limits. There is no nystagmus. There are no obvious motor or sensory deficits. She is alert and oriented times three. LABORATORY: White count on admission was 5.8, hemoglobin 9.6, hematocrit 24.4. RBC indices indicate a hyperchromic microcytic anemia likely of chronic illness with platelet count 142,000. Differential shows to be within normal limits. Coagulation studies showed PT 13.4, PTT 31.3. Blood gas analysis showed pH of 7.35 with bicarb 25, PO2 of 68, PCO2 of 47, satting 94% on 2 liters nasal cannula. Chemistries showed low sodium at 132 with potassium 4.1, BUN 24, creatinine 1.87, blood sugar 144. Troponin was less than 0.02. BNP was elevated at 264. Urinalysis showed positive nitrites, small amount of blood with moderate leukocyte esterase with microscopic revealing greater than 50 WBCs and 2+ bacteria. Toxicology screen showed positive for opioids and Benzodiazepines, with negative for all other substances tested. She had a Group A Strep that was positive. MICROBIOLOGY: Two sets of blood cultures remain negative at time of discharge. Urine culture was pending. Flu swab for both A and B by PCR was negative. RADIOLOGY: Chest x-ray in the Emergency Department prior to admission per radiology interpretation showed cardiomegaly with central pulmonary vascular congestion with mild peribronchial cuffing reflective of developing anemia or infectious etiology. Head CT was completed prior to discharge on the Medical/ Surgical floor and per radiology interpretation there was no CT evidence of acute intracranial hemorrhage. ASSESSMENT: 1. Exacerbation of congestive heart failure, unknown etiology, likely a systolic/ diastolic component secondary to chronic obstructive pulmonary disease and severe obesity showing improvement after Lasix and oxygen. 2. Febrile illness with a positive Streptococcus screen and an underlying urinary tract infection. 3. Acute mental status change felt to be secondary to some mild hypoxemia as noted on her ABG as well as contributing to the underlying urinary tract infection. 4. Morbid obesity. 5. Diabetes mellitus type 2 on insulin, poorly controlled. 6. Hypertension. 7. Chronic pain on multiple pain medicines, including Fentanyl, Hydrocodone as well as Zanaflex and other similar medications. 8. Microcytic hyperchromic anemia likely of chronic illness. 9. Hyponatremia likely secondary to ongoing diuretic usage. 10. Renal insufficiency with probable prerenal azotemia secondary to dehydration from chronic diuresis with Spironolactone with a normal potassium. HOSPITAL COURSE: The patient was placed in Observation for treatment of underlying urinary tract infection and started on Meropenem as review of previous culture results showed that she had multiple urinary tract infections with Escherichia coli that was becoming highly resistant. She was also found to have a positive Strep screen and before initiation of any other therapy, the patient decided she wanted to leave against medical advice. She did receive Lasix in the Emergency Department and showed good diuresis with the Lynne and was stable hemodynamically. The patient was adamant that she was leaving AMA and her was present. At that point, the patient was much more alert. She was advised to be careful with the Fentanyl patches and her other opioid medications, and to seek medical treatment for the underlying urinary tract infection. She said that she was leaving the hospital and would go see her doctor on Saturday as she was scheduled to apparently have surgery to have her gallbladder removed. PLAN: The patient was discharged against medical advice, given warnings of possible outcomes, including worsening condition and possible , and told that if she once left she needed to seek additional medical attention, at least go to a hospital where her physician was to continue her treatment. The patient understood this, was cognizant, alert and oriented, and was with her family. She was stable at time of discharge. The patient was discharged in stable condition against medical advice with proper warnings. The Lynne catheter was removed without any complications. The patient left via her private vehicle with . #[id number] [facility]
== END 2016-10-27 07:15 | disposition left against medical advice (07) | DRG 689 ==
LOC: ER 00:11 → MS 02:02 → OBSVTOIN 02:02
PROVIDERS: ADMIT Nurse Practitioner Family; ATTEND Nurse Practitioner Family
DX: N39.0 Urinary tract infection, site not specified (principal); I50.43 Acute on chronic combined systolic (congestive) and diastolic (congestive) heart failure; E87.1 Hypo-osmolality and hyponatremia; Z68.42 Body mass index [BMI] 45.0-49.9, adult; R09.02 Hypoxemia; K21.9 Gastro-esophageal reflux disease without esophagitis; F41.9 Anxiety disorder, unspecified; E11.9 Type 2 diabetes mellitus without complications; D63.8 Anemia in other chronic diseases classified elsewhere; J44.9 Chronic obstructive pulmonary disease, unspecified; I11.0 Hypertensive heart disease with heart failure; B95.0 Streptococcus, group A, as the cause of diseases classified elsewhere; G89.29 Other chronic pain; T50.2X5A Adverse effect of carbonic-anhydrase inhibitors, benzothiadiazides and other diuretics, initial encounter; Y92.009 Unspecified place in unspecified non-institutional (private) residence as the place of occurrence of the external cause; E86.0 Dehydration; N28.9 Disorder of kidney and ureter, unspecified; E66.01 Morbid (severe) obesity due to excess calories; F17.210 Nicotine dependence, cigarettes, uncomplicated; Z79.4 Long term (current) use of insulin; Z89.512 Acquired absence of left leg below knee; Z88.5 Allergy status to narcotic agent; Z79.891 Long term (current) use of opiate analgesic

== ENCOUNTER → 2016-10-30 | Outpatient (CLI) | payer MEDICARE, MEDICAID | END | disposition home or self-care (01) | LOC: BFHH 11:01 | PROVIDERS: ATTEND Emergency Medicine | DX: E87.1 Hypo-osmolality and hyponatremia (principal) ==

== ENCOUNTER → 2016-11-05 | Outpatient (CLI) | payer MEDICARE, MEDICAID | END | disposition home or self-care (01) | LOC: BFHH 14:00 | PROVIDERS: ATTEND Emergency Medicine | DX: E87.1 Hypo-osmolality and hyponatremia (principal) ==

== ENCOUNTER → 2016-11-12 | Outpatient (CLI) | payer MEDICARE, MEDICAID | END | disposition home or self-care (01) | LOC: BFHH 10:29 | PROVIDERS: ATTEND Emergency Medicine | DX: E87.1 Hypo-osmolality and hyponatremia (principal) ==

== ENCOUNTER → 2016-11-19 | Outpatient (CLI) | payer MEDICARE, MEDICAID | END | disposition home or self-care (01) | LOC: BFHH 12:51 | PROVIDERS: ATTEND Emergency Medicine | DX: E87.1 Hypo-osmolality and hyponatremia (principal) ==

== ENCOUNTER → 2016-11-26 | Outpatient (CLI) | payer MEDICARE, MEDICAID | LOC: BFHH 10:44 | PROVIDERS: ATTEND Emergency Medicine | DX: E87.1 Hypo-osmolality and hyponatremia (principal); E11.51 Type 2 diabetes mellitus with diabetic peripheral angiopathy without gangrene ==

== ENCOUNTER → 2016-12-03 | Outpatient (CLI) | payer MEDICARE, MEDICAID | END | disposition home or self-care (01) | LOC: BFHH 12:49 | PROVIDERS: ATTEND Emergency Medicine | DX: E87.1 Hypo-osmolality and hyponatremia (principal) ==

== ENCOUNTER 2016-12-15 18:00 | Emergency (ER) | payer MEDICARE, MEDICAID ==
--- NOTE | 2016-12-15 18:25 | ED.PDOC ---
History of Present Illness - General Chief Complaint: Abdominal Pain Stated Complaint: abdominal pain Time Seen by Provider: 12/15/16 18:18 Information Source: patient Exam Limitations: no limitations - History of Present Illness Initial Comments: Terrie Velazco 56 y/o female stated 1 1/2 days ago had started having stabbing abdominal pain right upper quadrant radiating to her back and stating had numerous episodes of previously eaten food with pain getting worse tonight.Stated was diagnosed with gallstone by his primary md in November and referred to a surgeon was told she is poor surgical risk due to her other medical problems.GALLBLADDER SONO done November 14/2017-read by dr. Iglesia NUNEZ- ER showed distended gallbladder WITHOUT STONE OR BILIARY DUCTAL DILATATION; fatty infiltration of liver ;pancreas no significant abnormality;right kidney- no significant abnormality.Had also CT ABD/Pelvis gallbladder,pancreas, bilateral adrenal glands appear unremarkable(09/22/2016) Abdominal Pain Onset Location: RUQ Pain Radiation: back Quality: moderate, intermittent Timing/Duration: other - 36 Improving Factors: nothing Worsening Factors: eating Associated Symptoms: denies symptoms Review of Systems - Review of Systems Constitutional: States: no symptoms reported EENTM: States: no symptoms reported Respiratory: States: no symptoms reported Cardiology: States: no symptoms reported Gastrointestinal/Abdominal: States: see HPI Genitourinary: States: no symptoms reported Musculoskeletal: States: no symptoms reported Skin: States: no symptoms reported Neurological: States: other - chronic neuropathy Past Medical History (General) - Patient Medical History Hx Seizures: No Hx Stroke: No Hx Dementia: No Hx Asthma: No Hx of COPD: Yes Hx Cardiac Disorders: Yes Hx Congestive Heart Failure: Yes Hx Pacemaker: No Hx Hypertension: Yes Hx Thyroid Disease: No Hx Diabetes: Yes Hx Gastroesophageal Reflux: Yes Hx Renal Disease: No Hx Cancer: No Hx of HIV: No Hx Hepatitis C: Yes Hx MRSA: No Surgical History: other - BTL,CTS,Left BKA ,cataract - Vaccination History Hx Tetanus, Diphtheria Vaccination: Yes Hx Influenza Vaccination: No Hx Pneumococcal Vaccination: Yes - Social History Hx Tobacco Use: Yes Hx Chewing Tobacco Use: No Hx Alcohol Use: No 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 Hx Substance Use Treatment: No Hx Depression: Yes Hx Physical Abuse: No Hx Emotional Abuse: No Hx Suspected Abuse: No - Activities of Daily Living Patient Lives Alone: No - with Grooming Ability: Independent Eating (Feeding) Ability: Independent Toileting Ability: Independent - Female History Patient : No Family Medical History - Family History Father Age (years): 74 Living Status: Cause of : Lung CA Hx Family Hypertension: Yes Hx Family Cancer: Yes - lung-dad Age of Onset (years of age): concha Mother Family History: No Known Living Status: Still Living Hx Family Hypertension: Yes Physical Exam - Physical Exam General Appearance: Alert, No apparent distress, Other - in pain Eyes, Ears, Nose, Throat Exam: PERRL/EOMI, normal ENT inspection Neck: non-tender, full range of motion, supple, normal inspection Respiratory: chest non-tender, lungs clear Cardiovascular/Chest: normal peripheral pulses, regular rate, rhythm, no gallop , no murmur Peripheral Pulses: No deficit Gastrointestinal/Abdominal: normal bowel sounds, soft, tenderness - RUQ, other - no peritoneal signs Back Exam: normal inspection, no CVA tenderness, no vertebral tenderness Extremity: normal range of motion, non-tender, no calf tenderness Neurologic: no motor/sensory deficits, alert, normal mood/affect, oriented x 3 Lymphatic: no adenopathy Progress - Progress Progress: 12/15/16 19:26 Vital Signs - 8 hr 12/15/16 12/15/16 18:01 19:01 Temperature 99 F Pulse Rate [ 52 L 50 L Left Radial] Respiratory 22 20 Rate Blood Pressure 203/78 186/89 [Right Arm] O2 Sat by Pulse 94 L 93 L Oximetry - Results/Orders Results/Orders: Laboratory Tests 12/15/16 12/15/16 12/15/16 18:45 18:45 19:35 WBC 4.4 L RBC 3.99 L Hgb 10.4 L Hct 31.4 L MCV 78.8 L MCH 26.0 L MCHC 33.0 RDW 18.4 H Plt Count 117 L MPV 8.8 Absolute Neuts (auto) 3.00 Absolute Lymphs (auto) 1.00 Absolute Monos (auto) 0.30 Absolute Eos (auto) 0.10 Absolute Basos (auto) 0.10 Neutrophils % 67.5 Lymphocytes % 23.9 Monocytes % 6.0 Eosinophils % 1.4 Basophils % 1.2 Sodium 135 Potassium 4.0 Chloride 98 L Carbon Dioxide 28 Anion Gap 13.0 BUN 16 Creatinine 0.97 BUN/Creatinine Ratio 16.5 Random Glucose 268 H Serum Osmolality 280.7 Calcium 9.0 Total Bilirubin 0.7 AST 39 ALT 24 Alkaline Phosphatase 79 Serum Total Protein 8.3 H Albumin 3.6 Globulin 4.7 H Albumin/Globulin Ratio 0.8 L Lipase 38 Urine Color Urine Appearance Urine pH Ur Specific [place] Urine Protein Urine Glucose (UA) Urine Ketones Urine Blood Urine Nitrite Urine Bilirubin Urine Urobilinogen Ur Leukocyte Esterase Urine RBC Urine WBC Ur Epithelial Cells Urine Bacteria Urine Opiates Screen Positive H Urine Barbiturates Negative Ur Phencyclidine Scrn Negative U Amphetamin/Meth Scrn Negative U Benzodiazepines Scrn Positive H U Cocaine Metab Screen Negative U Cannabinoids Screen Negative 12/15/16 19:35 WBC RBC Hgb Hct MCV MCH MCHC RDW Plt Count MPV Absolute Neuts (auto) Absolute Lymphs (auto) Absolute Monos (auto) Absolute Eos (auto) Absolute Basos (auto) Neutrophils % Lymphocytes % Monocytes % Eosinophils % Basophils % Sodium Potassium Chloride Carbon Dioxide Anion Gap BUN Creatinine BUN/Creatinine Ratio Random Glucose Serum Osmolality Calcium Total Bilirubin AST ALT Alkaline Phosphatase Serum Total Protein Albumin Globulin Albumin/Globulin Ratio Lipase Urine Color Yellow Urine Appearance Clear Urine pH 5.5 Ur Specific [place] 1.020 Urine Protein 100 H Urine Glucose (UA) Negative Urine Ketones Negative Urine Blood Moderate H Urine Nitrite Negative Urine Bilirubin Negative Urine Urobilinogen 2.0 H Ur Leukocyte Esterase Negative Urine RBC 5-10 H Urine WBC 5-10 H Ur Epithelial Cells 5-10 Urine Bacteria Rare Urine Opiates Screen Urine Barbiturates Ur Phencyclidine Scrn U Amphetamin/Meth Scrn U Benzodiazepines Scrn U Cocaine Metab Screen U Cannabinoids Screen - EKG/XRAY/CT EKG: Sid, Sinus, nonspecific ST T wave Chg - anterior leads prolonged qtc-473 ms Comments: heart rate-51 Departure - Departure Clinical Impression: Abdominal pain Qualifiers: Abdominal location: right upper quadrant Qualified Code(s): R10.11 - Right upper quadrant pain Time of Disposition: 20:28 Disposition: Discharge to Home or Self Care Condition: Fair Departure Forms: ED Discharge - Pt. Copy, Patient Portal Self Enrollment Instructions: DI for Abdominal Pain-Adult Diet: low fat, low cholesterol, low salt diet, other - AVOID GREASY ,SPICY FOODS Referrals: MEKA ADAME [Primary Care Provider] - 1-2 Weeks Home Medications: Ambulatory Orders fentaNYL PATCH 50 MCG/HR [Duragesic Patch 50 MCG/HR] 50 mcg TOP Q72H 04/26/14 Atenolol [Tenormin] 50 mg PO DAILY 09/12/15 Gabapentin [Neurontin] 600 mg PO TID 09/12/15 Insulin Detemir [Levemir Pen] 70 unit SUBCU BID 09/12/15 Lisinopril 20 mg PO DAILY 09/12/15 Lorazepam 2 mg PO TID 09/12/15 Oral Electrolytes [Thermotabs] 3 tab PO TID 09/12/15 Aripiprazole [Abilify] 15 mg PO DAILY 12/13/15 Furosemide [Lasix] 80 mg PO DAILY 12/13/15 Insulin Aspart [Novolog] 0 - 12 unit SUBCU .SLIDING SCALE 12/13/15 Insulin Aspart [Novolog] 10 unit SUBCU AC 12/13/15 Loperamide HCl [Imodium A-D] 1 - 2 ea PO TID PRN 12/13/15 Montelukast [Singulair] 10 mg PO BEDTIME 12/13/15 tiZANidine [Zanaflex] 4 mg PO BEDTIME 12/13/15 Cilostazol 50 mg PO BEDTIME 02/05/16 Esomeprazole Magnesium [Nexium] 40 mg PO DAILY 02/05/16 Simvastatin [Zocor] 20 mg PO DAILY 02/05/16 Ondansetron [Zofran Odt] 4 mg PO Q6HR PRN #20 tab 09/11/16 Hyoscyamine Sulfate [Levsin] 0.125 mg PO Q6HR PRN #30 tab 09/22/16 Ranitidine HCl 150 mg PO BID #60 tab 09/22/16 HYDROcodone 10MG/APAP 325MG [[place] 10/325] 1 tab PO Q4HR PRN 10/09/16 Mirtazapine [Remeron] 15 mg PO BEDTIME 10/09/16 Potassium Chloride [Potassium Chloride ER] 20 meq PO DAILY 10/09/16 Spironolactone 25 mg PO DAILY 10/09/16 Trolamine Salicylate [Aspercreme] 10 % EX TID #1 tube 10/09/16 Metoclopramide Tab [Reglan Tab] 10 mg PO TID 14 Days 10/18/16 Additional Instructions: FOLLOW UP WITH YOUR PRIMARY MD 12/17/2016 call for appointment;Continue with current medications
[2016-12-15] MEDS ORDERED: fentaNYL CITRATE INJ 50 MCG/ML AMP IV ONE (18:36)
[2016-12-15] MEDS ORDERED: PROMETHAZINE HCL INJ 25 MG/ML VIAL IM ONE (19:13)
[2016-12-15 20:27] VITALS: O2SAT 94
[2016-12-15 20:45] VITALS: BP 178/88; TEMP 95.5
== END 2016-12-15 20:45 | disposition home or self-care (01) ==
LOC: ER 18:00
DX: R10.11 Right upper quadrant pain (principal); I11.0 Hypertensive heart disease with heart failure; I50.9 Heart failure, unspecified; K21.9 Gastro-esophageal reflux disease without esophagitis; B19.20 Unspecified viral hepatitis C without hepatic coma; J44.9 Chronic obstructive pulmonary disease, unspecified; Z87.891 Personal history of nicotine dependence
CPT/HCPCS: 36415; 80053; 80307; 81001; 83690; 85025; 93005; J2550; J3010

== ENCOUNTER → 2016-12-17 | Outpatient (CLI) | payer MEDICARE, MEDICAID | END | disposition home or self-care (01) | LOC: BFHH 10:49 | PROVIDERS: ATTEND Emergency Medicine | DX: E87.1 Hypo-osmolality and hyponatremia (principal) ==

== ENCOUNTER → 2016-12-24 | Outpatient (CLI) | payer MEDICARE, MEDICAID | END | disposition home or self-care (01) | LOC: BFHH 10:43 | PROVIDERS: ATTEND Emergency Medicine | DX: E87.1 Hypo-osmolality and hyponatremia (principal) ==

== ENCOUNTER → 2016-12-31 | Outpatient (CLI) | payer MEDICARE, MEDICAID | END | disposition home or self-care (01) | LOC: BFHH 10:00 | PROVIDERS: ATTEND Emergency Medicine | DX: E87.1 Hypo-osmolality and hyponatremia (principal) ==

== ENCOUNTER → 2017-01-08 | Outpatient (CLI) | payer MEDICARE, MEDICAID | END | disposition home or self-care (01) | LOC: BFHH 10:37 | PROVIDERS: ATTEND Emergency Medicine | DX: E87.1 Hypo-osmolality and hyponatremia (principal); I11.0 Hypertensive heart disease with heart failure; I50.9 Heart failure, unspecified ==

== ENCOUNTER 2017-01-10 08:49 | Emergency (ER) | payer MEDICARE, MEDICAID ==
[2017-01-10] MEDS ORDERED: ONDANSETRON ODT 8 MG TAB SL ONE (09:11)
[2017-01-10] MEDS ORDERED: HYDROcodone 5MG/APAP 325MG 1 EA TAB PO ONE (09:51)
--- NOTE | 2017-01-10 09:52 | RAD ---
EXAM DESCRIPTION: Abdomen Series CLINICAL HISTORY: 56 years Female, nvd COMPARISON: October 27, 2016 FINDINGS: The heart is at the upper limits of normal size or slightly enlarged, stable. There is no airspace consolidation or pleural effusion. There is no free subdiaphragmatic gas or intra-abdominal air fluid level. There is a moderate amount of stool and gas scattered throughout the colon, but the bowel gas pattern is nonobstructive. Vascular calcifications are noted in the pelvis. No suspicious intra-abdominal calcification or mass is identified, and the bones are unremarkable. IMPRESSION: Stable borderline cardiomegaly, but no acute intra-abdominal abnormality. Electronically signed by: Peter Keller MD 01/10/2017 9:50 AM CDT
[2017-01-10 09:53] VITALS: BP 179/70
[2017-01-10] MEDS ORDERED: INSULIN LISPRO 100 UNITS/ML PEN SUBCU ONE (09:58)
--- NOTE | 2017-01-10 11:24 | ED.PDOC ---
History of Present Illness - General Chief Complaint: Abdominal Pain Stated Complaint: vomiting,diarrhea, abd pain Time Seen by Provider: 01/10/17 09:01 Source: patient Exam Limitations: no limitations - History of Present Illness Initial Comments: The patient is a 56-year-old female with a multitude of past medical problems well known to this emergency room presenting with3-4 hours of some nausea with 2 episodes of vomiting in a couple of episodes of diarrhea. She does have a long-standing history of intermittent gastritis along with intermittent constipationlikely complicated by multitude of medications. No definite fevers. No blood or bile in the vomitus. The patient is upset and crying which is actually pretty normal for her. She does not appear dehydrated. She does not appear weak. She does not otherwise appear to be in any distress. She reports her blood sugars averaging 150-200. No real abdominal pain just mild nausea. Timing/Duration: 4-6 hours Severity: mild Improving Factors: nothing Worsening Factors: nothing Associated Symptoms: loss of appetite, malaise, nausea/vomiting Allergies/Adverse Reactions: Allergies Protective Adhesive Powder Allergy (Verified 10/27/16 00:58) Sumatriptan [From Imitrex] Allergy (Verified 10/27/16 00:58) Home Medications: Ambulatory Orders fentaNYL PATCH 50 MCG/HR [Duragesic Patch 50 MCG/HR] 50 mcg TOP Q72H 04/26/14 Gabapentin [Neurontin] 600 mg PO TID 09/12/15 Insulin Detemir [Levemir Pen] 50 unit SUBCU BID 09/12/15 Lisinopril 20 mg PO DAILY 09/12/15 Lorazepam 2 mg PO TID 09/12/15 Oral Electrolytes [Thermotabs] 3 tab PO TID 09/12/15 Aripiprazole [Abilify] 15 mg PO DAILY 12/13/15 Furosemide [Lasix] 40 mg PO DAILY 12/13/15 Insulin Aspart [Novolog] 0 - 12 unit SUBCU .SLIDING SCALE 12/13/15 Insulin Aspart [Novolog] 10 unit SUBCU AC 12/13/15 Montelukast [Singulair] 10 mg PO BEDTIME 12/13/15 tiZANidine [Zanaflex] 4 mg PO Q8H PRN 12/13/15 Simvastatin [Zocor] 40 mg PO DAILY 02/05/16 HYDROcodone 10MG/APAP 325MG [[place] 10/325] 1 - 2 tab PO Q4HR PRN 10/09/16 Potassium Chloride [Potassium Chloride ER] 20 meq PO TID 10/09/16 Acetaminophen [Acetaminophen Extra Stren] 500 mg PO Q6H PRN 01/10/17 Aspirin [Didier Low Dose] 81 mg PO DAILY 01/10/17 Carvedilol [Coreg] 25 mg PO BID 01/10/17 Cilostazol [Pletal] 50 mg PO BEDTIME 01/10/17 Dextromethorphan HBr [Creomulsion Adult] 20 mg PO DAILY 01/10/17 Esomeprazole Magnesium [Nexium] 40 mg PO DAILY 01/10/17 Ferrous Sulfate [Iron] 325 mg PO DAILY 01/10/17 Guaifenesin 400 mg PO Q12H 01/10/17 Guaifenesin-Codeine [Cheratussin AC 100-10 mg/5Ml] 10 ml PO Q6H PRN 01/10/17 Ibuprofen 600 mg PO BID PRN 01/10/17 Loperamide HCl [Imodium A-D] 1 - 2 each PO TID PRN 01/10/17 Nicotine [Nicoderm Cq] 14 mg TD DAILY 01/10/17 Nystatin (Topical) [Nystatin] 100,000 unit EX BID 01/10/17 Ondansetron [Zofran Odt] 4 mg PO Q4H PRN #10 tab 01/10/17 Ondansetron [Zofran Odt] 4 mg PO Q8H PRN 01/10/17 Pregabalin [Lyrica] 75 mg PO BID 01/10/17 Tolvaptan [Samsca] 15 mg PO DAILY 01/10/17 Torsemide [Demadex] 40 mg PO BID 01/10/17 Ursodiol 250 mg PO BID 01/10/17 metOLazone [Zaroxolyn] 10 mg PO DAILY 01/10/17 Review of Systems - Review of Systems Constitutional: States: malaise EENTM: States: no symptoms reported Respiratory: States: no symptoms reported Cardiology: States: no symptoms reported Gastrointestinal/Abdominal: States: see HPI Genitourinary: States: no symptoms reported Musculoskeletal: States: see HPI Skin: States: no symptoms reported - chronic pain Neurological: States: see HPI - chronic pain, anxiety, depressed All other Systems: No Change from Baseline Past Medical History (General) - Patient Medical History Hx Seizures: No Hx Stroke: No Hx Dementia: No Hx Asthma: No Hx of COPD: Yes Hx Cardiac Disorders: Yes Hx Congestive Heart Failure: Yes Hx Pacemaker: No Hx Hypertension: Yes Hx Thyroid Disease: No Hx Diabetes: Yes Hx Gastroesophageal Reflux: Yes Hx Renal Disease: No Hx Cancer: No Hx of HIV: No Hx Hepatitis C: Yes Hx MRSA: No - Vaccination History Hx Tetanus, Diphtheria Vaccination: Yes Hx Influenza Vaccination: No Hx Pneumococcal Vaccination: Yes - Social History Hx Tobacco Use: Yes Hx Chewing Tobacco Use: No Hx Alcohol Use: No 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 Hx Substance Use Treatment: No Hx Depression: Yes Hx Physical Abuse: No Hx Emotional Abuse: No Hx Suspected Abuse: No - Female History Patient : No Family Medical History - Family History Father Age (years): 74 Living Status: Cause of : Lung CA Hx Family Hypertension: Yes Hx Family Cancer: Yes - lung-dad Age of Onset (years of age): concha Mother Family History: No Known Living Status: Still Living Hx Family Hypertension: Yes Physical Exam - Physical Exam General Appearance: Alert, Anxious Eye Exam: bilateral normal Ears, Nose, Throat: hearing grossly normal, normal ENT inspection, normal pharynx Neck: full range of motion, supple Respiratory: chest non-tender, lungs clear, normal breath sounds, no respiratory distress, no accessory muscle use Cardiovascular/Chest: normal peripheral pulses, regular rate, rhythm, no edema Peripheral Pulses: radial,right: 2+, radial,left: 2+, dorsalis pedis,right: 2+, dorsalis pedis,left: 2+ Gastrointestinal/Abdominal: non tender - obese. No rebound or peritoneal signs. , soft Rectal Exam: deferred Back Exam: no CVA tenderness, no vertebral tenderness Extremity: normal range of motion, other - +1 chronic edema of the right lower extremity. 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 Neurologic: alert, oriented x 3 Skin Exam: normal color Comments: Vital Signs - 24 hr 01/10/17 01/10/17 08:57 09:52 Temperature 97.8 F Pulse Rate [ 59 L 61 Left Brachial] Respiratory 20 20 Rate Blood Pressure 163/82 179/70 [Left Arm] O2 Sat by Pulse 96 96 Oximetry Progress - Progress Progress: 01/10/17 11:25 the patient's a 56-year-old female with a multitude of medical problems presenting with 2 episodes of vomiting and an episode of diarrhea. The patient does appear to have constipation on her x-ray and is given one dose of milk of magnesia here. She will be written for Zofran for the nausea and vomiting. She needs to keep herself well hydrated. Her lab work does show chronic abnormalities but nothing significantly new. She does need follow-up with her primary care doctor in a couple of weeks for a recheck for her hyponatremia and her pancytopenia. She is well-hydrated at this time. ER warnings were given. She should follow-up with her primary care doctor before the weekend. - Results/Orders Results/Orders: Vital Signs - 24 hr 01/10/17 01/10/17 08:57 09:52 Temperature 97.8 F Pulse Rate [ 59 L 61 Left Brachial] Respiratory 20 20 Rate Blood Pressure 163/82 179/70 [Left Arm] O2 Sat by Pulse 96 96 Oximetry Departure - Departure Clinical Impression: Vomiting Qualifiers: Vomiting type: unspecified Vomiting Intractability: non-intractable Nausea presence: with nausea Qualified Code(s): R11.2 - Nausea with vomiting, unspecified Constipation Qualifiers: Constipation type: slow transit constipation Qualified Code(s): K59.01 - Slow transit constipation Disposition: Discharge to Home or Self Care Departure Forms: ED Discharge - Pt. Copy, Patient Portal Self Enrollment Instructions: DI for Abdominal Pain-Adult Diet: diabetic diet Activity: increase activity as tolerated Referrals: MEKA ADAME [Primary Care Provider] - 1-2 Weeks Prescriptions: Ondansetron [Zofran Odt] 4 mg PO Q4H PRN #10 tab PRN Reason: Vomiting Home Medications: Ambulatory Orders fentaNYL PATCH 50 MCG/HR [Duragesic Patch 50 MCG/HR] 50 mcg TOP Q72H 04/26/14 Gabapentin [Neurontin] 600 mg PO TID 09/12/15 Insulin Detemir [Levemir Pen] 50 unit SUBCU BID 09/12/15 Lisinopril 20 mg PO DAILY 09/12/15 Lorazepam 2 mg PO TID 09/12/15 Oral Electrolytes [Thermotabs] 3 tab PO TID 09/12/15 Aripiprazole [Abilify] 15 mg PO DAILY 12/13/15 Furosemide [Lasix] 40 mg PO DAILY 12/13/15 Insulin Aspart [Novolog] 0 - 12 unit SUBCU .SLIDING SCALE 12/13/15 Insulin Aspart [Novolog] 10 unit SUBCU AC 12/13/15 Montelukast [Singulair] 10 mg PO BEDTIME 12/13/15 tiZANidine [Zanaflex] 4 mg PO Q8H PRN 12/13/15 Simvastatin [Zocor] 40 mg PO DAILY 02/05/16 HYDROcodone 10MG/APAP 325MG [[place] 10] 1 - 2 tab PO Q4HR PRN 10/09/16 Potassium Chloride [Potassium Chloride ER] 20 meq PO TID 10/09/16 Acetaminophen [Acetaminophen Extra Stren] 500 mg PO Q6H PRN 01/10/17 Aspirin [Didier Low Dose] 81 mg PO DAILY 01/10/17 Carvedilol [Coreg] 25 mg PO BID 01/10/17 Cilostazol [Pletal] 50 mg PO BEDTIME 01/10/17 Dextromethorphan HBr [Creomulsion Adult] 20 mg PO DAILY 01/10/17 Esomeprazole Magnesium [Nexium] 40 mg PO DAILY 01/10/17 Ferrous Sulfate [Iron] 325 mg PO DAILY 01/10/17 Guaifenesin 400 mg PO Q12H 01/10/17 Guaifenesin-Codeine [Cheratussin AC 100-10 mg/5Ml] 10 ml PO Q6H PRN 01/10/17 Ibuprofen 600 mg PO BID PRN 01/10/17 Loperamide HCl [Imodium A-D] 1 - 2 each PO TID PRN 01/10/17 Nicotine [Nicoderm Cq] 14 mg TD DAILY 01/10/17 Nystatin (Topical) [Nystatin] 100,000 unit EX BID 01/10/17 Ondansetron [Zofran Odt] 4 mg PO Q4H PRN #10 tab 01/10/17 Ondansetron [Zofran Odt] 4 mg PO Q8H PRN 01/10/17 Pregabalin [Lyrica] 75 mg PO BID 01/10/17 Tolvaptan [Samsca] 15 mg PO DAILY 01/10/17 Torsemide [Demadex] 40 mg PO BID 01/10/17 Ursodiol 250 mg PO BID 01/10/17 metOLazone [Zaroxolyn] 10 mg PO DAILY 01/10/17 Additional Instructions: the patient's a 56-year-old female with a multitude of medical problems presenting with 2 episodes of vomiting and an episode of diarrhea. The patient does appear to have constipation on her x-ray and is given one dose of milk of magnesia here. She will be written for Zofran for the nausea and vomiting. She needs to keep herself well hydrated. Her lab work does show chronic abnormalities but nothing significantly new. She does need follow-up with her primary care doctor in a couple of weeks for a recheck for her hyponatremia and her pancytopenia. She is well-hydrated at this time. ER warnings were given. She should follow-up with her primary care doctor before the weekend.
[2017-01-10] MEDS ORDERED: MAGNESIUM HYDROXIDE 30 ML UD PO ONE (11:28)
[2017-01-10 11:47] VITALS: TEMP 97.3; O2SAT 95
== END 2017-01-10 11:35 | disposition home or self-care (01) ==
LOC: ER 08:49
DX: R11.2 Nausea with vomiting, unspecified (principal); K59.01 Slow transit constipation; J44.9 Chronic obstructive pulmonary disease, unspecified; I11.0 Hypertensive heart disease with heart failure; I10 Essential (primary) hypertension; E11.9 Type 2 diabetes mellitus without complications; K21.9 Gastro-esophageal reflux disease without esophagitis; B19.20 Unspecified viral hepatitis C without hepatic coma; Z87.891 Personal history of nicotine dependence; Z79.4 Long term (current) use of insulin; Z79.899 Other long term (current) drug therapy; Z88.8 Allergy status to other drugs, medicaments and biological substances
CPT/HCPCS: 36415; 74020; 80053; 81001; 82150; 82550; 82553; 83690; 84484; 85025; 87502; J1815

== ENCOUNTER → 2017-01-22 | Outpatient (CLI) | payer MEDICARE, MEDICAID | END | disposition home or self-care (01) | LOC: BFHH 10:51 | PROVIDERS: ATTEND Emergency Medicine | DX: E78.1 Pure hyperglyceridemia (principal) ==

== ENCOUNTER → 2017-01-29 | Outpatient (CLI) | payer MEDICARE, MEDICAID | END | disposition home or self-care (01) | LOC: BFHH 08:37 | PROVIDERS: ATTEND Emergency Medicine | DX: E87.1 Hypo-osmolality and hyponatremia (principal) ==

== ENCOUNTER → 2017-02-04 | Outpatient (CLI) | payer MEDICARE, MEDICAID | END | disposition home or self-care (01) | LOC: BFHH 10:34 | PROVIDERS: ATTEND Emergency Medicine | DX: E87.1 Hypo-osmolality and hyponatremia (principal) ==

== ENCOUNTER → 2017-02-11 | Outpatient (CLI) | payer MEDICARE, MEDICAID | END | disposition home or self-care (01) | LOC: BFHH 10:48 | PROVIDERS: ATTEND Emergency Medicine | DX: E87.1 Hypo-osmolality and hyponatremia (principal) ==

== ENCOUNTER → 2017-02-18 | Outpatient (CLI) | payer MEDICARE, MEDICAID | END | disposition home or self-care (01) | LOC: BFHH 10:29 | PROVIDERS: ATTEND Emergency Medicine | DX: E87.1 Hypo-osmolality and hyponatremia (principal) ==

== ENCOUNTER → 2017-02-25 | Outpatient (CLI) | payer MEDICARE, MEDICAID | END | disposition home or self-care (01) | LOC: BFHH 12:05 | PROVIDERS: ATTEND Emergency Medicine | DX: E78.1 Pure hyperglyceridemia (principal) ==

== ENCOUNTER → 2017-03-04 | Outpatient (CLI) | payer MEDICARE, MEDICAID | END | disposition home or self-care (01) | LOC: BFHH 11:17 | PROVIDERS: ATTEND Emergency Medicine | DX: E87.1 Hypo-osmolality and hyponatremia (principal) ==

== ENCOUNTER → 2017-03-11 | Outpatient (CLI) | payer MEDICARE, MEDICAID | END | disposition home or self-care (01) | LOC: BFHH 11:07 | PROVIDERS: ATTEND Emergency Medicine | DX: E87.1 Hypo-osmolality and hyponatremia (principal) ==

== ENCOUNTER → 2017-03-18 | Outpatient (CLI) | payer MEDICARE, MEDICAID | END | disposition home or self-care (01) | LOC: BFHH 10:28 | PROVIDERS: ATTEND Emergency Medicine | DX: E87.1 Hypo-osmolality and hyponatremia (principal) ==

== ENCOUNTER → 2017-03-25 | Outpatient (CLI) | payer MEDICARE, MEDICAID | END | disposition home or self-care (01) | LOC: BFHH 11:38 | PROVIDERS: ATTEND Emergency Medicine | DX: E87.1 Hypo-osmolality and hyponatremia (principal) ==

== ENCOUNTER → 2017-04-01 | Outpatient (CLI) | payer MEDICARE, MEDICAID | END | disposition home or self-care (01) | LOC: BFHH 14:08 | PROVIDERS: ATTEND Emergency Medicine | DX: E87.1 Hypo-osmolality and hyponatremia (principal) ==

== ENCOUNTER → 2017-04-08 | Outpatient (CLI) | payer MEDICARE, MEDICAID | END | disposition home or self-care (01) | LOC: BFHH 10:51 | PROVIDERS: ATTEND Emergency Medicine | DX: E78.1 Pure hyperglyceridemia (principal) ==

== ENCOUNTER → 2017-04-15 | Outpatient (CLI) | payer MEDICARE, MEDICAID | END | disposition home or self-care (01) | LOC: BFHH 14:57 | PROVIDERS: ATTEND Emergency Medicine | DX: E87.1 Hypo-osmolality and hyponatremia (principal) ==

== ENCOUNTER → 2017-04-22 | Outpatient (CLI) | payer MEDICARE, MEDICAID | END | disposition home or self-care (01) | LOC: BFHH 12:57 | PROVIDERS: ATTEND Emergency Medicine | DX: E87.1 Hypo-osmolality and hyponatremia (principal) ==

== ENCOUNTER → 2017-05-16 | Outpatient (CLI) | payer MEDICARE, MEDICAID | END | disposition home or self-care (01) | LOC: BFHH 10:57 | PROVIDERS: ATTEND Emergency Medicine | DX: I11.0 Hypertensive heart disease with heart failure (principal); E11.42 Type 2 diabetes mellitus with diabetic polyneuropathy; I50.9 Heart failure, unspecified; E87.1 Hypo-osmolality and hyponatremia; J44.9 Chronic obstructive pulmonary disease, unspecified ==

== ENCOUNTER → 2017-05-27 | Outpatient (CLI) | payer MEDICARE, MEDICAID | END | disposition home or self-care (01) | LOC: BFHH 11:49 | PROVIDERS: ATTEND Emergency Medicine | DX: E87.1 Hypo-osmolality and hyponatremia (principal); N18.3 Chronic kidney disease, stage 3 (moderate) ==

== ENCOUNTER → 2017-05-30 | Outpatient (CLI) | payer MEDICARE, MEDICAID | END | disposition home or self-care (01) | LOC: BFHH 10:46 | PROVIDERS: ATTEND Emergency Medicine | DX: E11.621 Type 2 diabetes mellitus with foot ulcer (principal) ==

== ENCOUNTER → 2017-06-03 | Outpatient (CLI) | payer MEDICARE, MEDICAID | END | disposition home or self-care (01) | LOC: BFHH 14:04 | PROVIDERS: ATTEND Emergency Medicine | DX: E87.1 Hypo-osmolality and hyponatremia (principal) ==

== ENCOUNTER → 2017-06-10 | Outpatient (CLI) | payer MEDICARE, MEDICAID | LOC: BFHH 10:53 | PROVIDERS: ATTEND Emergency Medicine | DX: E87.1 Hypo-osmolality and hyponatremia (principal) ==

== ENCOUNTER → 2017-06-17 | Outpatient (CLI) | payer MEDICARE, MEDICAID | LOC: BFHH 12:19 | PROVIDERS: ATTEND Emergency Medicine | DX: I13.0 Hypertensive heart and chronic kidney disease with heart failure and stage 1 through stage 4 chronic kidney disease, or unspecified chronic kidney disease (principal); E11.22 Type 2 diabetes mellitus with diabetic chronic kidney disease; B18.2 Chronic viral hepatitis C; E87.1 Hypo-osmolality and hyponatremia; E03.9 Hypothyroidism, unspecified; J44.9 Chronic obstructive pulmonary disease, unspecified ==

== ENCOUNTER → 2017-06-18 | Outpatient (CLI) | payer MEDICARE, MEDICAID | LOC: BFHH 12:58 | PROVIDERS: ATTEND Emergency Medicine | DX: L97.412 Non-pressure chronic ulcer of right heel and midfoot with fat layer exposed (principal) ==

== ENCOUNTER → 2017-07-19 | Outpatient (CLI) | payer MEDICARE, MEDICAID | LOC: BFHH 13:20 | PROVIDERS: ATTEND Emergency Medicine | DX: E87.1 Hypo-osmolality and hyponatremia (principal) ==

== ENCOUNTER → 2017-07-22 | Outpatient (CLI) | payer MEDICARE, MEDICAID | LOC: BFHH 10:13 | PROVIDERS: ATTEND Emergency Medicine | DX: E87.1 Hypo-osmolality and hyponatremia (principal) ==

== ENCOUNTER → 2017-07-29 | Outpatient (CLI) | payer MEDICARE, MEDICAID | LOC: BFHH 10:19 | PROVIDERS: ATTEND Emergency Medicine | DX: E87.1 Hypo-osmolality and hyponatremia (principal) ==

== ENCOUNTER → 2017-08-05 | Outpatient (CLI) | payer MEDICARE, MEDICAID | LOC: BFHH 10:16 | PROVIDERS: ATTEND Emergency Medicine | DX: E87.1 Hypo-osmolality and hyponatremia (principal); I73.9 Peripheral vascular disease, unspecified; E11.22 Type 2 diabetes mellitus with diabetic chronic kidney disease ==

== ENCOUNTER → 2017-08-16 | Outpatient (CLI) | payer MEDICARE, MEDICAID | END | disposition home or self-care (01) | LOC: BFHH 11:38 | PROVIDERS: ATTEND Emergency Medicine | DX: E87.1 Hypo-osmolality and hyponatremia (principal) ==

== ENCOUNTER → 2017-08-23 | Outpatient (CLI) | payer MEDICARE, MEDICAID | LOC: BFHH 10:40 | PROVIDERS: ATTEND Emergency Medicine | DX: E87.1 Hypo-osmolality and hyponatremia (principal) ==

== ENCOUNTER → 2017-09-04 | Outpatient (CLI) | payer MEDICARE, MEDICAID | LOC: BFHH 10:30 | PROVIDERS: ATTEND Emergency Medicine | DX: E87.1 Hypo-osmolality and hyponatremia (principal) ==

== ENCOUNTER 2017-09-08 20:20 | Inpatient (IN) | payer MEDICARE, MEDICAID ==
--- NOTE | 2017-09-08 20:50 | ED.PDOC ---
History of Present Illness - General Chief Complaint: GI Problem Stated Complaint: N/Vomiting, states sodium is low, temp Time Seen by Provider: 09/08/17 20:35 Source: patient Exam Limitations: no limitations - History of Present Illness Initial Comments: Terrie Velazco 57 y/o female stated had nausea/vomiting for the last 2 days and had 3 episodes of watery diarrhea,fever and abdominal cramps.No recent vomiting here in ER.Stated unable to keep any food or water down.Has history of DM 2 on insulin stating blood sugar [id number] also stating she has head pressure.She was brought to hospital by . Timing/Duration: getting worse, other - 2 days ago Severity: moderate Improving Factors: nothing Worsening Factors: eating Associated Symptoms: other - see hpi Allergies/Adverse Reactions: Allergies Protective Adhesive Powder Allergy (Verified 10/27/16 00:58) Sumatriptan [From Imitrex] Allergy (Verified 10/27/16 00:58) Home Medications: Ambulatory Orders fentaNYL PATCH 50 MCG/HR [Duragesic Patch 50 MCG/HR] 50 mcg TOP Q72H 04/26/14 Gabapentin [Neurontin] 600 mg PO TID 09/12/15 Insulin Detemir [Levemir Pen] 50 unit SUBCU BID 09/12/15 Lisinopril 20 mg PO DAILY 09/12/15 Lorazepam 2 mg PO TID 09/12/15 Oral Electrolytes [Thermotabs] 3 tab PO TID 09/12/15 Aripiprazole [Abilify] 15 mg PO DAILY 12/13/15 Furosemide [Lasix] 40 mg PO DAILY 12/13/15 Insulin Aspart [Novolog] 0 - 12 unit SUBCU .SLIDING SCALE 12/13/15 Insulin Aspart [Novolog] 10 unit SUBCU AC 12/13/15 Montelukast [Singulair] 10 mg PO BEDTIME 12/13/15 tiZANidine [Zanaflex] 4 mg PO Q8H PRN 12/13/15 Simvastatin [Zocor] 40 mg PO DAILY 02/05/16 HYDROcodone 10MG/APAP 325MG [[place] 10/325] 1 - 2 tab PO Q4HR PRN 10/09/16 Potassium Chloride [Potassium Chloride ER] 20 meq PO TID 10/09/16 Acetaminophen [Acetaminophen Extra Stren] 500 mg PO Q6H PRN 01/10/17 Aspirin [Didier Low Dose] 81 mg PO DAILY 01/10/17 Carvedilol [Coreg] 25 mg PO BID 01/10/17 Cilostazol [Pletal] 50 mg PO BEDTIME 01/10/17 Dextromethorphan HBr [Creomulsion Adult] 20 mg PO DAILY 01/10/17 Esomeprazole Magnesium [Nexium] 40 mg PO DAILY 01/10/17 Ferrous Sulfate [Iron] 325 mg PO DAILY 01/10/17 Guaifenesin 400 mg PO Q12H 01/10/17 Guaifenesin-Codeine [Cheratussin AC 100-10 mg/5Ml] 10 ml PO Q6H PRN 01/10/17 Ibuprofen 600 mg PO BID PRN 01/10/17 Loperamide HCl [Imodium A-D] 1 - 2 each PO TID PRN 01/10/17 Nicotine [Nicoderm Cq] 14 mg TD DAILY 01/10/17 Nystatin (Topical) [Nystatin] 100,000 unit EX BID 01/10/17 Ondansetron [Zofran Odt] 4 mg PO Q4H PRN #10 tab 01/10/17 Ondansetron [Zofran Odt] 4 mg PO Q8H PRN 01/10/17 Pregabalin [Lyrica] 75 mg PO BID 01/10/17 Tolvaptan [Samsca] 15 mg PO DAILY 01/10/17 Torsemide [Demadex] 40 mg PO BID 01/10/17 Ursodiol 250 mg PO BID 01/10/17 metOLazone [Zaroxolyn] 10 mg PO DAILY 01/10/17 Review of Systems - Review of Systems Constitutional: States: fever EENTM: States: no symptoms reported Respiratory: States: no symptoms reported Cardiology: States: no symptoms reported Gastrointestinal/Abdominal: States: see HPI Genitourinary: States: no symptoms reported Musculoskeletal: States: no symptoms reported Neurological: States: see HPI Hematologic/Lymphatic: States: no symptoms reported Past Medical History (General) - Patient Medical History Hx Seizures: No Hx Stroke: No Hx Dementia: No Hx Asthma: No Hx of COPD: Yes Hx Cardiac Disorders: Yes Hx Congestive Heart Failure: Yes Hx Pacemaker: No Hx Hypertension: Yes Hx Thyroid Disease: No Hx Diabetes: Yes Hx Gastroesophageal Reflux: Yes Hx Renal Disease: No Hx Cancer: No Hx of HIV: No Hx Hepatitis C: Yes Hx MRSA: No Hx Other PMH: Yes - ANASTACIO-0n CPAP MRSA Source:: Wound Surgical History: other - right CTS,left BKA,cataract w/IOL implant - Vaccination History Hx Tetanus, Diphtheria Vaccination: Yes Hx Influenza Vaccination: No Hx Pneumococcal Vaccination: Yes - Social History Hx Tobacco Use: Yes Hx Chewing Tobacco Use: No Hx Alcohol Use: No 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 Hx Substance Use Treatment: No Hx Depression: Yes Hx Physical Abuse: No Hx Emotional Abuse: No Hx Suspected Abuse: No - Activities of Daily Living Grooming Ability: Standby Assistance Eating (Feeding) Ability: Standby Assistance Toileting Ability: Standby Assistance - Female History Patient is a Female of Child Bearing Age (10 -59 yrs old): No Patient : No Family Medical History - Family History Father Age (years): 74 Living Status: Cause of : Lung CA Hx Family Hypertension: Yes Hx Family Cancer: Yes - lung-dad Age of Onset (years of age): concha Mother Family History: No Known Living Status: Still Living Hx Family Hypertension: Yes Physical Exam - Physical Exam General Appearance: Alert, Anxious, No apparent distress Eye Exam: bilateral normal Ears, Nose, Throat: hearing grossly normal, normal ENT inspection, normal pharynx Neck: non-tender, full range of motion, supple Respiratory: chest non-tender, lungs clear, normal breath sounds Cardiovascular/Chest: normal peripheral pulses, regular rate, rhythm, no murmur Peripheral Pulses: radial,right: 2+, radial,left: 2+ Gastrointestinal/Abdominal: normal bowel sounds, non tender, soft, other - obese Back Exam: normal inspection, no CVA tenderness, no vertebral tenderness Extremity: non-tender, no calf tenderness, pedal edema - 2 + (r) leg;left BKA, other Neurologic: alert, oriented x 3 Skin Exam: normal color, warm/dry Progress - Progress Progress: 09/08/17 21:09 09/08/17 20:50 Abdoment/Pelvis w/o Contrast [CT] Stat URINE DRUG SCREEN, 7 ASSAY Stat Chest,1 View [RAD] Stat URINALYSIS Stat 09/08/17 21:00 CARDIAC PANEL,ER Stat HEPATIC FUNCTION PANEL Stat LACTIC ACID Stat LIPASE Stat Vital Signs - 24 hr 09/08/17 20:39 Temperature 101.9 F H Pulse Rate [ 80 Right] Respiratory 20 Rate Blood Pressure 151/73 [Left Arm] O2 Sat by Pulse 93 L Oximetry - Results/Orders Results/Orders: 09/08/17 22:20 URINE CULTURE W/COLONY COUNT Stat 09/08/17 23:26 Meropenem [Merrem] 500 mg Sodium Chl 0.9% 50Ml Min-Bag+ [NS 50ml MINI-BAG+] 50 ml IVPB ONCE BLOOD CULTURE Stat URINE CULTURE W/COLONY COUNT Stat Laboratory Results - last 24 hr 09/08/17 09/08/17 09/08/17 21:00 21:00 21:00 WBC 5.8 RBC 3.61 L Hgb 10.1 L Hct 29.2 L MCV 81.0 MCH 27.9 MCHC 34.7 RDW 15.6 H Plt Count 118 L MPV 8.2 Absolute Neuts (auto) 5.00 Absolute Lymphs (auto) 0.40 L Absolute Monos (auto) 0.30 Absolute Eos (auto) 0.00 Absolute Basos (auto) 0.00 Neutrophils % 86.7 H Lymphocytes % 6.6 L Monocytes % 5.9 Eosinophils % 0.4 L Basophils % 0.4 PT 14.5 H INR 1.250 PTT (SP) 35.0 Sodium 122 L Potassium 5.4 H Chloride 87 L Carbon Dioxide 28 Anion Gap 12.4 BUN 28 H Creatinine 1.84 H BUN/Creatinine Ratio 15.2 Random Glucose 129 H Serum Osmolality 253.1 L* Lactic Acid 1.1 Calcium 8.6 Magnesium 1.7 L Total Bilirubin 1.0 Direct Bilirubin 0.3 H Indirect Bilirubin 0.7 AST 24 ALT 13 Alkaline Phosphatase 71 Creatine Kinase 61 CK-MB (CK-2) 0.8 CK-MB (CK-2) % Not Reportable Troponin I < 0.02 Serum Total Protein 8.6 H Albumin 3.5 Lipase 28 TSH 2.54 Urine Color Urine Appearance Urine pH Ur Specific Cove Urine Protein Urine Glucose (UA) Urine Ketones Urine Blood Urine Nitrite Urine Bilirubin Urine Urobilinogen Ur Leukocyte Esterase Urine RBC Urine WBC Ur Epithelial Cells Urine Bacteria Urine Opiates Screen Urine Barbiturates Ur Phencyclidine Scrn U Amphetamin/Meth Scrn U Benzodiazepines Scrn U Cocaine Metab Screen U Cannabinoids Screen 09/08/17 09/08/17 22:20 22:20 WBC RBC Hgb Hct MCV MCH MCHC RDW Plt Count MPV Absolute Neuts (auto) Absolute Lymphs (auto) Absolute Monos (auto) Absolute Eos (auto) Absolute Basos (auto) Neutrophils % Lymphocytes % Monocytes % Eosinophils % Basophils % PT INR PTT (SP) Sodium Potassium Chloride Carbon Dioxide Anion Gap BUN Creatinine BUN/Creatinine Ratio Random Glucose Serum Osmolality Lactic Acid Calcium Magnesium Total Bilirubin Direct Bilirubin Indirect Bilirubin AST ALT Alkaline Phosphatase Creatine Kinase CK-MB (CK-2) CK-MB (CK-2) % Troponin I Serum Total Protein Albumin Lipase TSH Urine Color Yellow Urine Appearance Cloudy Urine pH 5.0 Ur Specific Cove <= 1.005 Urine Protein Trace Urine Glucose (UA) Negative Urine Ketones Negative Urine Blood Moderate H Urine Nitrite Positive H Urine Bilirubin Negative Urine Urobilinogen 0.2 Ur Leukocyte Esterase Large H Urine RBC 3-5 H Urine WBC Tntc H Ur Epithelial Cells 1-3 Urine Bacteria 1+ Urine Opiates Screen Negative Urine Barbiturates Negative Ur Phencyclidine Scrn Negative U Amphetamin/Meth Scrn Negative U Benzodiazepines Scrn Positive H U Cocaine Metab Screen Negative U Cannabinoids Screen Negative calculated AG-7 - EKG/XRAY/CT XRAY: chest - no acute abnormalities CT Ordered: Yes - no acute abnormalities Departure - Departure Clinical Impression: Hyponatremia with decreased serum osmolality, Vomiting and diarrhea UTI (urinary tract infection) Qualifiers: Urinary tract infection type: site unspecified Hematuria presence: without hematuria Qualified Code(s): N39.0 - Urinary tract infection, site not specified Fever Qualifiers: Fever type: due to other condition Qualified Code(s): R50.81 - Fever presenting with conditions classified elsewhere Diabetes Qualifiers: Diabetes mellitus type: type 2 Diabetes mellitus complication status: with unspecified complications Diabetes mellitus senior care insulin use: with senior care use Qualified Code(s): E11.8 - Type 2 diabetes mellitus with unspecified complications Time of Disposition: 00:00 Disposition: Admit Patient Condition: Fair Departure Forms: ED Discharge - Pt. Copy, Patient Portal Self Enrollment Referrals: MEKA ADAME [Primary Care Provider] - 1-2 Weeks Home Medications: Ambulatory Orders fentaNYL PATCH 50 MCG/HR [Duragesic Patch 50 MCG/HR] 50 mcg TOP Q72H 04/26/14 Gabapentin [Neurontin] 600 mg PO TID 09/12/15 Insulin Detemir [Levemir Pen] 50 unit SUBCU BID 09/12/15 Lisinopril 20 mg PO DAILY 09/12/15 Lorazepam 2 mg PO TID 09/12/15 Oral Electrolytes [Thermotabs] 3 tab PO TID 09/12/15 Aripiprazole [Abilify] 15 mg PO DAILY 12/13/15 Furosemide [Lasix] 40 mg PO DAILY 12/13/15 Insulin Aspart [Novolog] 0 - 12 unit SUBCU .SLIDING SCALE 12/13/15 Insulin Aspart [Novolog] 10 unit SUBCU AC 12/13/15 Montelukast [Singulair] 10 mg PO BEDTIME 12/13/15 tiZANidine [Zanaflex] 4 mg PO Q8H PRN 12/13/15 Simvastatin [Zocor] 40 mg PO DAILY 02/05/16 HYDROcodone 10MG/APAP 325MG [[place] 10/325] 1 - 2 tab PO Q4HR PRN 10/09/16 Potassium Chloride [Potassium Chloride ER] 20 meq PO TID 10/09/16 Acetaminophen [Acetaminophen Extra Stren] 500 mg PO Q6H PRN 01/10/17 Aspirin [Didier Low Dose] 81 mg PO DAILY 01/10/17 Carvedilol [Coreg] 25 mg PO BID 01/10/17 Cilostazol [Pletal] 50 mg PO BEDTIME 01/10/17 Dextromethorphan HBr [Creomulsion Adult] 20 mg PO DAILY 01/10/17 Esomeprazole Magnesium [Nexium] 40 mg PO DAILY 01/10/17 Ferrous Sulfate [Iron] 325 mg PO DAILY 01/10/17 Guaifenesin 400 mg PO Q12H 01/10/17 Guaifenesin-Codeine [Cheratussin AC 100-10 mg/5Ml] 10 ml PO Q6H PRN 01/10/17 Ibuprofen 600 mg PO BID PRN 01/10/17 Loperamide HCl [Imodium A-D] 1 - 2 each PO TID PRN 01/10/17 Nicotine [Nicoderm Cq] 14 mg TD DAILY 01/10/17 Nystatin (Topical) [Nystatin] 100,000 unit EX BID 01/10/17 Ondansetron [Zofran Odt] 4 mg PO Q4H PRN #10 tab 01/10/17 Ondansetron [Zofran Odt] 4 mg PO Q8H PRN 01/10/17 Pregabalin [Lyrica] 75 mg PO BID 01/10/17 Tolvaptan [Samsca] 15 mg PO DAILY 01/10/17 Torsemide [Demadex] 40 mg PO BID 01/10/17 Ursodiol 250 mg PO BID 01/10/17 metOLazone [Zaroxolyn] 10 mg PO DAILY 01/10/17 Decision To Admit - Decistion To Admit Decision to Admit Reason: Admit from ER Decision to Admit Date: 09/08/17 - D/W Williams Walton-ANP/Hospitalist Decision to Admit Time: 23:54
--- NOTE | 2017-09-08 21:52 | CT ---
EXAM DESCRIPTION: Abdoment/Pelvis w/o Contrast CLINICAL HISTORY: pain COMPARISON: 09/22/2016 TECHNIQUE: Contiguous axial images of the abdomen and pelvis were obtained followed by reconstruction images. This exam was performed according to our departmental dose-optimization program, which includes automated exposure control, adjustment of the mA and/or kV according to patient size and/or use of iterative reconstruction technique. FINDINGS: Contour of the liver is irregular. Spleen is enlarged. Positioning limits detail. There is trace fluid in the pelvis. There are nodules in the right lung measuring up to approximately 7 mm. There is no hydronephrosis or renal stones. The gallbladder is unremarkable by CT criteria. Adrenal glands are within normal limits. Aorta is of normal caliber and tapering. There is no free fluid in the abdomen or pelvis. There is no bowel obstruction. There is no stranding of the mesenteric fat to suggest an inflammatory response. IMPRESSION: Splenomegaly. No acute intra-abdominal abnormality. Electronically signed by: Supa Lara 09/08/2017 9:51 PM CDT
--- NOTE | 2017-09-08 21:58 | RAD ---
EXAM DESCRIPTION: Chest,1 View CLINICAL HISTORY: pain COMPARISON: 10/27/2016 FINDINGS: Cardiac silhouette is within normal limits. There is no focal parenchymal or pleural disease. Visualized osseous structures are within normal limits. IMPRESSION: No evidence of acute cardiopulmonary disease. Electronically signed by: Supa Lara 09/08/2017 9:57 PM CDT
[2017-09-08] MEDS ORDERED: MAGNESIUM SULFATE PREMIX 2GM 2 GM in PREMIX BAG 1 BAG IVPB ONE (22:07)
[2017-09-08] MEDS ORDERED: MAGNESIUM SULFATE PREMIX 2GM 50 ML IVPB ONE (22:13)
[2017-09-08] MEDS ORDERED: MEROPENEM 500 MG in SODIUM CHL 0.9% 50ML MIN-BAG+ 50 ML IVPB ONE (23:26)
[2017-09-08] MEDS ORDERED: MEROPENEM 500 MG VIAL IVPB ONE (23:35)
[2017-09-08] MEDS ORDERED: SODIUM CHL 0.9% 50ML MIN-BAG+ 50 ML IVPB ONE (23:35)
[2017-09-09] MEDS ORDERED: ACETAMINOPHEN 325 MG TAB ONE (00:38)
[2017-09-09] MEDS ORDERED: ACETAMINOPHEN 325 MG TAB PO ONE (00:38)
[2017-09-09] MEDS ORDERED: SODIUM CHLORIDE 0.9% (FLUSH) 10 ML SYG IV PRN (00:49)
[2017-09-09] MEDS ORDERED: ONDANSETRON INJ 4 MG/2 ML VIAL IV PRN (00:49)
[2017-09-09] MEDS ORDERED: GLUCAGON INJ 1 MG VIAL SUBCU PRN (00:49)
[2017-09-09] MEDS ORDERED: ACETAMINOPHEN 325 MG TAB PO PRN (00:49)
[2017-09-09] MEDS ORDERED: DEXTROSE 50% 25 GM/50 ML SYG IV PRN (00:49)
[2017-09-09] MEDS: IV SET AND CAP CHANGE INJ INJ SCH (01:00)
[2017-09-09] MEDS ORDERED: ACETAMINOPHEN 500 MG TAB PO PRN (01:40)
[2017-09-09] MEDS ORDERED: tiZANidine 4 MG TAB PO PRN (01:40)
[2017-09-09] MEDS ORDERED: fentaNYL PATCH 50 MCG/HR 1 EA PATCH TOP SCH (02:00)
[2017-09-09] MEDS: SODIUM CHLORIDE 0.9% 1000ML 1,000 ML IVS PRN ×2 (03:55→20:06)
[2017-09-09] MEDS: HYDROcodone 10MG/APAP 325MG 1 EA TAB PO PRN ×2 (04:05→10:10)
[2017-09-09] MEDS ORDERED: FUROSEMIDE INJ 40 MG/4 ML VIAL IV ONE ×2 (06:35→09:00)
[2017-09-09] MEDS: INSULIN LISPRO 100 UNITS/ML PEN SUBCU SCH ×4 (07:17→20:53)
[2017-09-09] MEDS ORDERED: FUROSEMIDE 40 MG TAB PO SCH (09:00)
[2017-09-09] MEDS ORDERED: INSULIN DETEMIR 100 UNITS/ML PEN SUBCU SCH (09:00)
[2017-09-09] MEDS ORDERED: METOLAZONE 10 MG PO SCH (09:00)
[2017-09-09] MEDS ORDERED: TORSEMIDE TAB 20 MG PO SCH (09:00)
[2017-09-09] MEDS: URSODIOL 250 MG PO SCH ×2 (09:00→20:32)
[2017-09-09] MEDS ORDERED: NON-FORMULARY MEDICATION 1 EA MIS (Esomeprazole Magnesium [Nexium] 40 MG) PO SCH (09:00)
[2017-09-09] MEDS: TOLVAPTAN 15 MG PO SCH (09:00)
--- NOTE | 2017-09-09 09:32 | HP ---
SUPERVISING PHYSICIAN: Wade Mills MD CHIEF COMPLAINT: Nausea and vomiting. HISTORY OF PRESENT ILLNESS: Ms. Velazco is a 57 year-old female patient who presented to the Emergency Department last night complaining of nausea and vomiting for over the last two days as well as three episodes of watery diarrhea with abdominal cramps. She notes that she was unable to keep any food or water down. She does have a history of diabetes mellitus type 2 on insulin and chronic hyponatremia with baseline sodium around 126. Her initial laboratory studies showed her CBC showed early left shift with white count of 5, 800 and initial sodium in the Emergency Room of 122 with potassium 5.4 and osmolality 253. Urinalysis showed significant pyuria with too numerous to count WBC on microscopic exam with 1+ bacteria. CT of the abdomen and pelvis was completed without contrast prior to admission and there were no acute intraabdominal abnormalities noted other than splenomegaly by the radiologist. Given the patient's significant hyponatremia and underlying urinary tract infection and unable to hold any significant oral intake in and diabetes on insulin, the patient is now going to be admitted to the medical/surgical floor for treatment and evaluation. She was admitted in stable condition. PAST MEDICAL HISTORY: 1. Hypertension. 2. Gastroesophageal reflux disease. 3. Chronic anxiety disorder. 4. Diabetes mellitus in insulin therapy. 5. Chronic hyponatremia. 6. Chronic hypomagnesemia. 7. Previous below-knee amputation of left. PAST SURGICAL HISTORY: 1. Tubal ligation. 2. History of tracheotomy. 3. Left below-knee amputation in August 2015. CURRENT MEDICATIONS: Please see updated list once they have been updated and verified in the medical record. ALLERGIES: HYDROCODONE. FAMILY HISTORY: Positive for lung cancer, hypertension and diabetes. SOCIAL HISTORY: The patient is disabled. She live in [place], [place]. Her primary care physician is Dr. Gtz in [facility]. She is a current smoker of approximately a pack a day. She denies any illicit or alcohol drug usage. REVIEW OF SYSTEMS: GENERAL: Notes fever with soma chills at home. HEENT: Denies nasal congestion, earaches, sore throat. RESPIRATORY: No reported shortness of breath or cough. CARDIAC: Denies any chest pain, palpitations or syncopal episodes. GASTROINTESTINAL: As noted in history of present illness, nausea and vomiting but no reported abdominal pain. No constipation. GENITOURINARY: No reported dysuria, hematuria or other urinary symptoms. NEUROLOGICAL: No reported syncopal episodes, ataxia or seizures. PHYSICAL EXAMINATION: VITAL SIGNS: Temperature 101.9 in the Emergency Room with pulse of 80, blood pressure 151/72, respirations 20, saturation 93% on room air. Initial weight was 136.0 kg. GENERAL: On admission to the medical/surgical floor, the patient is anxious, tearful but appears to be in no acute distress. She is obese in appearance and unkept. She is alert and answers questions appropriately. HEENT: Tympanic membranes are clear bilaterally. Oropharynx is pink and moist without any lesions. NECK: Supple, non-tender with full range of motion. No jugular venous distention/ CHEST: Lungs are clear to auscultation bilaterally without any rhonchi, rales , or wheezes. CARDIOVASCULAR: Regular rate and rhythm without appreciable murmurs, rubs, or gallops. ABDOMEN: Bowel sounds are present. There was no tenderness on palpation. Obese. EXTREMITIES: Below-knee amputation on the left with 2+ pedal edema on the right. There was a pressure ulcer noted on the right heel with dressing currently in place and clean and dry. NEUROLOGIC: She was alert and oriented x 3. Facial features were symmetrical. Extraocular movements were within normal limits. There was no notable nystagmus. Cranial nerves II through XII are grossly intact. LABORATORY: White count on admission of 5,800 with hemoglobin 10.1, hematocrit 29.2, platelet count at 118,000. Differential shows a left shift. Coagulation studies showed a slightly elevated PT of 14.5, normal INR of 1.25, PTT of 35..0 Chemistries on admission showed a sodium of 122, potassium 5.4, chloride down to 87, anion gap normal. Carbon dioxide normal. BUN 28, creatinine 1.84. Blood sugar 129. Serum osmolality 253, lactic acid 1.1, magnesium 1.7. Liver functions showed to within normal limits. Troponin less than 0.02. Lipase 28, TSH 2.54. MICROBIOLOGY: Blood cultures pending. Urine culture pending. RADIOLOGY: CT of the abdomen and pelvis without contrast per radiology interpretation showed no acute intraabdominal abnormalities other than splenomegaly. There was also note of nodules in the right lung measuring up to approximately 7 mm. ASSESSMENT: 1. Acute on chronic hyponatremia likely secondary to both diuretic usage and excessive water intake with baseline sodium noted to be 126. 2. Febrile illness with urinary tract infection. 3. Diabetes mellitus type 2 on insulin. 4. Hypertension. 5. Chronic pain on multiple medications including Fentanyl patch and hydrocodone. 6. Hypertension. 7. Morbid obesity as noted with a body mass index of 47. 8. Acute renal insufficiency felt to be secondary to diuretic administration and showing a baseline creatinine of about 1.4. 9. Anemia, normocytic normochromic, RBC presentation, probably secondary to chronic illness. 10. Chronic decubitus pressure ulcer to the right heel currently followed by [facility] and primary care physician, Dr. Jevon Gtz. PLAN: The patient is admitted to the medical/surgical floor for ongoing treatment of underlying urinary tract infection and slow correction of her hyponatremia. She will be placed on fluid restriction to 1500 cc and given initial dose of 60 of Lasix on admission and infusion of normal saline at 60 an hour. Plan to repeat her labs in the morning and dress accordingly. We will restart her home medications as appropriate once the have been updated and verified in the electronic medical records. She will be on DVT prophylaxis as per protocol. She will have wound management of the decubitus. She was started on antibiotics including meropenem for the underlying urinary tract infection and will await culture results to further target antibiotic therapy. Will anticipate length of stay to be at least 2 to 3 days and until clinically stable will continue to monitor and treat appropriately. #[id number] [facility]
[2017-09-09] MEDS ORDERED: NYSTATIN POWDER 15GM BTTL TOP ONE (10:06)
[2017-09-09] MEDS: FERROUS SULFATE 325 MG TAB PO SCH (10:07)
[2017-09-09] MEDS: POTASSIUM CHLORIDE 20 MEQ TAB PO SCH ×3 (10:07→17:03)
[2017-09-09] MEDS: GABAPENTIN 300 MG CAP PO SCH ×3 (10:08→20:30)
[2017-09-09] MEDS: LISINOPRIL 10 MG TAB PO SCH (10:08)
[2017-09-09] MEDS: ARIPiprazole 5 MG TAB PO SCH (10:08)
[2017-09-09] MEDS: OMEPRAZOLE CAP 20 MG CAP PO SCH (10:08)
[2017-09-09] MEDS: LORazepam 1 MG TAB PO SCH ×3 (10:09→20:29)
[2017-09-09] MEDS: PREGABALIN 75 MG CAP PO SCH ×2 (10:09→20:30)
[2017-09-09] MEDS: CARVEDILOL 12.5 MG TAB PO SCH ×2 (10:09→20:30)
[2017-09-09] MEDS: NICOTINE PATCH 14 MG TD SCH (10:09)
[2017-09-09] MEDS: ASPIRIN EC 81 MG TAB PO SCH (10:09)
[2017-09-09] MEDS: MEROPENEM 500 MG in SODIUM CHL 0.9% 50ML MIN-BAG+ 50 ML IVPB SCH ×2 (11:16→20:30)
[2017-09-09] MEDS ORDERED: SODIUM CHL 0.9% 50ML MIN-BAG+ 50 ML IVPB ONE ×2 (12:13→19:11)
[2017-09-09] MEDS ORDERED: MEROPENEM 500 MG VIAL IVPB ONE ×2 (12:13→19:12)
[2017-09-09] MEDS: NYSTATIN POWDER 15GM BTTL TOP SCH ×3 (12:36→20:31)
[2017-09-09] MEDS: SIMVASTATIN 20 MG TAB PO SCH (20:31)
[2017-09-09] MEDS: CILOSTAZOL 100 MG TAB PO SCH (20:31)
--- NOTE | 2017-09-09 22:09 | PCM.CORE ---
Physician DVT/VTE - Nurse DVT Assessment & Total Each Risk Factor Represents 3 Points: Medical PT with Hx of NC, CHF, Severe infection/sepsis Each Risk Factor Represents 2 Points: Confined to bed >72 hours Each Risk Factor Represents 1 Point: Age 41-60, Medical PT at Bed Rest, Hx of smoking past year Each Risk Factor is 1 Point: Obesity (BMI >25), Serious Lung disease (pnemonia < 1month, COPD, emphysema,etc) DVT Assessment Score: 10 - 5 or more Very High Risk Treatments: Early Ambulation *, Sequential Compression Device Pharmacological: Enoxaparin 40mg SQ Daily
[2017-09-09] MEDS ORDERED: ENOXAPARIN SODIUM 40 MG/0.4 ML SYG SUBCU SCH (22:30)
[2017-09-10] MEDS: OMEPRAZOLE CAP 20 MG CAP PO SCH (06:03)
[2017-09-10] MEDS: INSULIN LISPRO 100 UNITS/ML PEN SUBCU SCH ×4 (07:11→20:57)
[2017-09-10] MEDS ORDERED: SODIUM CHL 0.9% 50ML MIN-BAG+ 50 ML IVPB ONE ×2 (07:46→19:56)
[2017-09-10] MEDS ORDERED: MEROPENEM 500 MG VIAL IVPB ONE ×2 (07:48→19:57)
[2017-09-10] MEDS: POTASSIUM CHLORIDE 20 MEQ TAB PO SCH ×3 (08:06→16:58)
[2017-09-10] MEDS: ARIPiprazole 5 MG TAB PO SCH (09:23)
[2017-09-10] MEDS: LORazepam 1 MG TAB PO SCH ×3 (09:24→20:30)
[2017-09-10] MEDS: PREGABALIN 75 MG CAP PO SCH ×2 (09:24→20:31)
[2017-09-10] MEDS: GABAPENTIN 300 MG CAP PO SCH ×3 (09:24→20:31)
[2017-09-10] MEDS: ASPIRIN EC 81 MG TAB PO SCH (09:24)
[2017-09-10] MEDS: FERROUS SULFATE 325 MG TAB PO SCH (09:24)
[2017-09-10] MEDS: CARVEDILOL 12.5 MG TAB PO SCH ×2 (09:24→20:30)
[2017-09-10] MEDS: LISINOPRIL 10 MG TAB PO SCH (09:25)
[2017-09-10] MEDS: MEROPENEM 500 MG in SODIUM CHL 0.9% 50ML MIN-BAG+ 50 ML IVPB SCH ×2 (09:25→20:31)
[2017-09-10] MEDS: NICOTINE PATCH 14 MG TD SCH (09:25)
[2017-09-10] MEDS: NYSTATIN POWDER 15GM BTTL TOP SCH ×4 (09:26→20:31)
[2017-09-10] MEDS: TOLVAPTAN 15 MG PO SCH (09:26)
[2017-09-10] MEDS: FUROSEMIDE 40 MG TAB PO SCH (11:53)
[2017-09-10] MEDS: SILDENAFIL CITRATE PO SCH ×3 (11:53→20:32)
[2017-09-10] MEDS: URSODIOL 300 MG CAP PO SCH ×2 (11:53→20:30)
[2017-09-10] MEDS: SODIUM CHLORIDE 0.9% (FLUSH) 10 ML SYG IV SCH ×2 (11:54→20:31)
--- NOTE | 2017-09-10 14:24 | PN ---
SUPERVISING PHYSICIAN: Wade Mills MD DATE: 09/10/17 SUBJECTIVE: The patient is doing much better today. She is alert, back to her baseline mental status. Her is visiting with her. She is in the bedside chair. She has continued to run a low grade fever last night with T- max 100.0. She also had a positive blood culture showing a gram negative nehal which is consistent with the urine culture that showed E. coli which is unfortunately very resistant, but sensitive to meropenem. She did voice that she wanted to be transferred to [place] so that she could be treated by her doctor , Dr. Gtz. I did explain to her at length that this is not a possibility, that should she want to do that, the only way for her to do that was to leave [facility], which I suggested was not a good choice. After further discussion, she agreed she would stay here for further treatment. OBJECTIVE: VITAL SIGNS: T-max 100.0. Pulse 70. Blood pressure 122/63. Respirations 22. Saturation 96% on nasal cannula at rest. I&Os show negative balance of 2435 with 2040 in, 4475 out. Weight 137.2 kg. CHEST: Lung sounds are diminished towards the bases, but no rhonchi, wheezing or rales noted today. HEART: Regular rate and rhythm with no appreciable murmurs, gallops, or rubs. ABDOMEN: Obese, but soft and nontender. Positive bowel sounds. EXTREMITIES: Right lower extremity now without any edema. The heel is showing good granulation tissue with no obvious signs of infection on the right. Her left upper stump is without any lesions or sores and without any edema. NEUROLOGIC: Alert and oriented times three. LABORATORY: CBC today shows a white count of 4,100, hemoglobin decreased to 8.6 with hematocrit 25.5, platelet count 124,000. Differential does show a resolving left shift. Her chemistries now show a sodium 126 which is her baseline sodium level. Potassium 5.4 which is likely due to some mild hemolysis during blood draw. Carbon dioxide up to 92. BUN 31, creatinine is improving at 1.7. Blood sugars remain fairly stable between 123 and 194. Calcium is at 8.2. MICROBIOLOGY: Final urine culture does show an Escherichia coli that was very resistant, only sensitive to cefoxitin, gentamicin and ertapenem, meropenem and Macrobid. The patient has been on meropenem since admission. She did have one positive blood culture that showed a gram negative nehal with final results pending. ASSESSMENT: 1. Gram negative bacteremia secondary to urinary tract infection with identified source being Escherichia coli with pending final culture results on blood culture with the patient having been on meropenem with the urine culture showing a sensitivity pattern that is sensitive to meropenem. 2. Sepsis due to #1. 3. Febrile illness due to underlying urinary tract infection with Escherichia coli on final culture results with a very resistant sensitivity pattern, but sensitive to meropenem. 4. Acute on chronic hyponatremia, secondary to excessive water intake with the patient returning to baseline status with strict fluid restriction and loop diuretics. 5. Diabetes mellitus, type 2, on insulin therapy, stable. 6. Hypertension. 7. Chronic pain on multiple medications including fentanyl patch, hydrocodone and Flexeril. 8. Morbid obesity as noted with a body mass index of 47. 9. Acute renal insufficiency with a prerenal azotemia component due to fluid imbalance, showing improvement with IV fluids with a baseline creatinine of around 1.4. 10. Normocytic/normochromic anemia, probably secondary to chronic illness and chronic renal insufficiency. 11. Chronic decubitus pressure ulcer to the right heel showing good healing, having been followed by [facility] and primary care physician in the outpatient setting with no signs of infection. PLAN: The patient will continue with current antibiotic therapy with meropenem given that her first culture result on blood culture showed a gram negative nehal and the final results on the urine specimen was Escherichia coli that was very resistant but sensitive to meropenem. She will need to be at least afebrile for 48 hours prior to discharge. Given that she has a very resistant E. coli and will need ongoing IV therapy with meropenem at discharge, at some point she will need placement of a PICC line. Arrangements are in process to hopefully do this with home health or through [facility] in regards to the infusion. Hopefully, we can get a PICC line placed here after discharge. Again, she will need to be at least 48 hours afebrile before discharge. I have saline locked her and resumed her home medications except for her Levemir as her blood sugar has been well controlled with sliding scale. She remains on DVT prophylaxis. We are doing wound management with wet-to-dry dressings and should the area show a need or worsening, certainly would benefit probably from consultation with Dr. Banerjee, but at this point her wound seems to be manageable without further consultation efforts. We will anticipate length of stay to be at least another 48 hours of hospitalization. Anticipation of discharge possibly early as , possibly Saturday, and she will need to be out of the hospital for at least 72 hours before a PICC line can be placed. She should be on at least a 14 day course of meropenem given the bacteremia which unfortunately may make it not feasible for placement of a PICC line given the delay in placement after discharge. Again, the patient has voiced that she wanted to be transferred to [place], but she understands this is not a possibility other than if she left [facility] and she has agreed she will stay here for treatment and visited also in discussion with her as well. She has been up to the bedside chair and bedside commode. I resumed all her medications including her p.o. Lasix and I will keep her saline locked. We will plan to monitor labs as appropriate to her clinical condition. Until clinically stable and able to be discharged, we will continue to monitor the patient closely and treat appropriately. #[id number] [facility]
[2017-09-10] MEDS: BIFIDOBACTERIUM INFANTIS 4 MG CAP PO SCH (14:38)
[2017-09-10] MEDS: URSODIOL 250 MG PO SCH (19:06)
[2017-09-10] MEDS: ENOXAPARIN SODIUM 40 MG/0.4 ML SYG SUBCU SCH (20:30)
[2017-09-10] MEDS: CILOSTAZOL 100 MG TAB PO SCH (20:31)
[2017-09-10] MEDS: SIMVASTATIN 20 MG TAB PO SCH (20:32)
[2017-09-11] MEDS: OMEPRAZOLE CAP 20 MG CAP PO SCH (06:28)
[2017-09-11] MEDS: INSULIN LISPRO 100 UNITS/ML PEN SUBCU SCH ×4 (07:34→21:02)
[2017-09-11] MEDS ORDERED: SODIUM CHL 0.9% 50ML MIN-BAG+ 50 ML IVPB ONE ×2 (07:56→19:36)
[2017-09-11] MEDS ORDERED: MEROPENEM 500 MG VIAL IVPB ONE ×2 (07:57→19:37)
[2017-09-11] MEDS: POTASSIUM CHLORIDE 20 MEQ TAB PO SCH ×3 (08:01→17:44)
[2017-09-11] MEDS: LISINOPRIL 10 MG TAB PO SCH (09:12)
[2017-09-11] MEDS: GABAPENTIN 300 MG CAP PO SCH ×3 (09:12→20:32)
[2017-09-11] MEDS: NYSTATIN POWDER 15GM BTTL TOP SCH ×4 (09:12→20:34)
[2017-09-11] MEDS: LORazepam 1 MG TAB PO SCH ×3 (09:13→20:33)
[2017-09-11] MEDS: SILDENAFIL CITRATE PO SCH ×3 (09:13→20:32)
[2017-09-11] MEDS: FERROUS SULFATE 325 MG TAB PO SCH (09:13)
[2017-09-11] MEDS: URSODIOL 300 MG CAP PO SCH ×2 (09:13→20:32)
[2017-09-11] MEDS: ARIPiprazole 5 MG TAB PO SCH (09:13)
[2017-09-11] MEDS: PREGABALIN 75 MG CAP PO SCH ×2 (09:13→20:33)
[2017-09-11] MEDS: CARVEDILOL 12.5 MG TAB PO SCH ×2 (09:13→20:33)
[2017-09-11] MEDS: NICOTINE PATCH 14 MG TD SCH (09:13)
[2017-09-11] MEDS: FUROSEMIDE 40 MG TAB PO SCH (09:13)
[2017-09-11] MEDS: ASPIRIN EC 81 MG TAB PO SCH (09:13)
[2017-09-11] MEDS: SODIUM CHLORIDE 0.9% (FLUSH) 10 ML SYG IV SCH ×2 (09:14→20:30)
[2017-09-11] MEDS: MEROPENEM 500 MG in SODIUM CHL 0.9% 50ML MIN-BAG+ 50 ML IVPB SCH ×2 (09:20→20:30)
[2017-09-11] MEDS ORDERED: fentaNYL PATCH 25 MCG/HR 1 EA PATCH TD SCH (10:00)
[2017-09-11] MEDS: BIFIDOBACTERIUM INFANTIS 4 MG CAP PO SCH (10:05)
[2017-09-11] MEDS: HYDROcodone 10MG/APAP 325MG 1 EA TAB PO PRN ×2 (11:48→20:33)
--- NOTE | 2017-09-11 15:45 | PN ---
DATE: 09/11/17 SUPERVISING PHYSICIAN: Wade Mills M.D. SUBJECTIVE: The patient is sitting up in the chair in her room. She has just finished her lunch. She has no complaints of nausea, vomiting, diarrhea, chest pain or shortness of breath. We discussed doing her IV antibiotic therapy that she will have to do for 14 total days of therapy and she has decided to do outpatient therapy, and coming in twice a day to the hospital. OBJECTIVE: T max 24 hours is 99.7, heart rate 63, blood pressure 134/71, respiratory rate 22, O2 sat is 91% on 1 liter nasal cannula. RESPIRATORY: Diminished breath sounds throughout. CARDIAC: Regular rate and rhythm. GASTROINTESTINAL: Abdomen is soft, nondistended, non-tender. Bowel sounds are positive. NEUROLOGIC: She is awake, alert and oriented times three. LABORATORY: WBCs are 3.6 with hemoglobin 8.8, hematocrit 27.5, platelets 114. Sodium 126, potassium 5.3, chloride 94, BUN 34, creatinine 1.61, glucose is between 123 and 144. Blood cultures are positive for E. coli with sensitivity to Meropenem. All other labs and films have been reviewed via the EMR. ASSESSMENT: 1. Urinary tract infection with Escherichia coli. The patient has been on Meropenem and urine cultures as well as blood cultures show sensitivity to that antibiotic. 2. Sepsis due to #1. 3. Febrile illness due to underlying urinary tract infection. Shows a fairly resistant sensitivity pattern. It is sensitive to Meropenem. 4. Acute on chronic hyponatremia. The patient is on fluid restrictions and is at her baseline which is approximately 125 to 126. 5. Diabetes mellitus, type 2, on insulin therapy. 6. Hypertension. 7. Chronic pain presently on multiple pain medications. 8. Morbid obesity with a body mass index of 47. 9. Acute renal insufficiency. Her baseline creatinine is 1.4. Today it is 1.61. 10. Normocytic/normochromic anemia, most likely secondary to chronic illness and chronic renal insufficiency. 11. Chronic decubitus pressure ulcer to the right heel showing good healing, followed by [facility] and Dr. Jevon Gtz in the outpatient setting with no signs or symptoms of infection. PLAN: We will continue present therapy. Plans are for discharge tomorrow and the patient is to have a total of 14 days of Meropenem administered in the outpatient setting. She will have to come in at 8:00 AM and 8:00 PM daily and the patient has agreed to do that. Her labs are fairly well stabilized and are mostly at her baseline. Will monitor the patient and follow as needed. Dr. Mills is the collaborating physician available for consultation. #[id number] [facility]
[2017-09-11] MEDS: SIMVASTATIN 20 MG TAB PO SCH (20:32)
[2017-09-11] MEDS: CILOSTAZOL 100 MG TAB PO SCH (20:32)
[2017-09-11] MEDS: ENOXAPARIN SODIUM 40 MG/0.4 ML SYG SUBCU SCH (20:34)
[2017-09-12] MEDS: IV SET AND CAP CHANGE INJ INJ SCH (00:43)
[2017-09-12] MEDS: OMEPRAZOLE CAP 20 MG CAP PO SCH (06:13)
[2017-09-12] MEDS: INSULIN LISPRO 100 UNITS/ML PEN SUBCU SCH ×2 (07:38→12:23)
[2017-09-12] MEDS ORDERED: SODIUM CHL 0.9% 50ML MIN-BAG+ 50 ML IVPB ONE (07:57)
[2017-09-12] MEDS ORDERED: MEROPENEM 500 MG VIAL IVPB ONE (08:00)
[2017-09-12] MEDS: POTASSIUM CHLORIDE 20 MEQ TAB PO SCH (08:20)
[2017-09-12] MEDS: HYDROcodone 10MG/APAP 325MG 1 EA TAB PO PRN (09:39)
[2017-09-12] MEDS: BIFIDOBACTERIUM INFANTIS 4 MG CAP PO SCH (09:51)
[2017-09-12] MEDS: MEROPENEM 500 MG in SODIUM CHL 0.9% 50ML MIN-BAG+ 50 ML IVPB SCH (09:51)
[2017-09-12] MEDS: ASPIRIN EC 81 MG TAB PO SCH (09:52)
[2017-09-12] MEDS: URSODIOL 300 MG CAP PO SCH (09:52)
[2017-09-12] MEDS: LISINOPRIL 10 MG TAB PO SCH (09:52)
[2017-09-12] MEDS: ARIPiprazole 5 MG TAB PO SCH (09:52)
[2017-09-12] MEDS: PREGABALIN 75 MG CAP PO SCH (09:52)
[2017-09-12] MEDS: FUROSEMIDE 40 MG TAB PO SCH (09:53)
[2017-09-12] MEDS: LORazepam 1 MG TAB PO SCH (09:53)
[2017-09-12] MEDS: FERROUS SULFATE 325 MG TAB PO SCH (09:53)
[2017-09-12] MEDS: NICOTINE PATCH 14 MG TD SCH (09:53)
[2017-09-12] MEDS: SILDENAFIL CITRATE PO SCH (09:53)
[2017-09-12] MEDS: GABAPENTIN 300 MG CAP PO SCH (09:53)
[2017-09-12] MEDS: CARVEDILOL 12.5 MG TAB PO SCH (09:53)
[2017-09-12] MEDS: SODIUM CHLORIDE 0.9% (FLUSH) 10 ML SYG IV SCH (09:59)
[2017-09-12] MEDS: NYSTATIN POWDER 15GM BTTL TOP SCH (10:41)
[2017-09-12 12:21] VITALS: BP 125/74; TEMP 98.2; O2SAT 96
--- NOTE | 2017-09-12 15:56 | DS ---
SUPERVISING PHYSICIAN: Wade Mills MD DISCHARGE DIAGNOSIS: 1. Urinary tract infection with Escherichia coli. The patient has been on meropenem and urine cultures as well as blood cultures show sensitivity to that antibiotic. 2. Sepsis due to #1. 3. Febrile illness due to underlying urinary tract infection. Shows a fairly resistant sensitivity pattern. It is sensitive to meropenem. 4. Acute on chronic hyponatremia. The patient is on fluid restrictions and is at her baseline which is approximately 125 to 126. 5. Diabetes mellitus, type 2, on insulin therapy. 6. Hypertension. 7. Chronic pain presently on multiple pain medications. 8. Morbid obesity with a body mass index of 47. 9. Acute renal insufficiency. Her baseline creatinine is 1.4. Today it is 1.61. 10. Normocytic/normochromic anemia, most likely secondary to chronic illness and chronic renal insufficiency. 11. Chronic decubitus pressure ulcer to the right heel showing good healing, followed by [facility] and Dr. Jevon Gtz in the outpatient setting with no signs or symptoms of infection. HISTORY OF PRESENT ILLNESS: This is a 57-year-old female patient who presented to the Emergency Room on the day of admission complaining of nausea and vomiting for the two previous days. She also had several episodes of watery diarrhea with abdominal cramps. She was unable to keep any food or water down. She has a history of diabetes mellitus, type 2, on insulin with chronic hyponatremia with a baseline sodium of around 126. Initial lab studies showed CBC with white count 5800 with a left shift. Her initial sodium was 122 and potassium 5.4, osmolality 253. Urinalysis showed significant pyuria with too numerous to count WBCs on microscopic exam with 1+ bacteria. CT of the abdomen and pelvis was completed and there were no acute intraabdominal abnormalities other than splenomegaly per radiologic interpretation. Due to the patient's urinary tract infection, nausea, vomiting and diarrhea as well as being a diabetic and unable to hold any significant oral intake, she was admitted to the Medical/Surgical Floor. HOSPITAL COURSE: She was started on antibiotics that included meropenem. Wound care was also done to her right leg. Her temperature was initially 101.9 and her last low grade temperature was on the 1st at 10 PM at 99.8. Since then , she has been afebrile. Heart rate and blood pressure have been stable. O2 saturations are in the low 90s. CBC stabilized. Sodium is now at her baseline which is 126. Creatinine 1.61 and baseline creatinine is about 1.5. Her final urine culture shows multidrug resistant E. coli that is sensitive to Merrem. She also had positive blood cultures that show multidrug resistant E. coli again sensitive to meropenem. She will require b.i.d. dosing of meropenem due to the multidrug resistant E. coli. The patient will be discharged today to be readmitted to [facility]. DISCHARGE PLAN: The patient will be discharged from the Acute Care setting to Swing Bed for dressing changes to her right lower leg as well as meropenem twice a day. She will need 14 total days of antibiotic therapy. Hopefully we can get a PICC line at some point in her therapy placed for her antibiotic treatment. Her home medications will be resumed. We will continue to monitor the patient closely and follow as needed. After discharge from [facility], she will need a followup with her primary care physician, Dr. Gtz in [place]. DISCHARGE MEDICATIONS: 1. Levemir insulin. 2. Gabapentin. 3. Lorazepam. 4. Lisinopril. 5. Abilify. 6. Furosemide. 7. NovoLog insulin with sliding scale. 8. Zanaflex. 9. Simvastatin. 10. Hydrocodone. 11. Potassium chloride. 12. Ferrous sulfate. 13. Loperamide. 14. Aspirin. 15. Acetaminophen. 16. Nystatin topical. 17. Nexium. 18. Samsca. 19. Lyrica. 20. Nicoderm. 21. Coreg. 22. Torsemide. 23. Zaroxolyn. 24. Pletal. 25. Sildenafil citrate. 26. Actigall. 27. Duragesic patch. 28. Align. 29. Meropenem. Dr. Mills is the collaborating physician and available for consultation. #[id number] [facility]
== END 2017-09-12 11:45 | disposition swing bed (61) | DRG 871 ==
LOC: ER 20:20 → OBSVTOIN 09-09 00:10 → MS 09-09 00:10
PROVIDERS: ADMIT Nurse Practitioner Family; ATTEND Nurse Practitioner Acute Care
DX: A41.51 Sepsis due to Escherichia coli [E. coli] (principal); L89.614 Pressure ulcer of right heel, stage 4; N39.0 Urinary tract infection, site not specified; E87.1 Hypo-osmolality and hyponatremia; Z68.42 Body mass index [BMI] 45.0-49.9, adult; N17.9 Acute kidney failure, unspecified; E11.22 Type 2 diabetes mellitus with diabetic chronic kidney disease; Z79.4 Long term (current) use of insulin; G89.29 Other chronic pain; E66.01 Morbid (severe) obesity due to excess calories; N18.9 Chronic kidney disease, unspecified; I12.9 Hypertensive chronic kidney disease with stage 1 through stage 4 chronic kidney disease, or unspecified chronic kidney disease; D63.1 Anemia in chronic kidney disease; Z79.82 Long term (current) use of aspirin; Z91.048 Other nonmedicinal substance allergy status

== ENCOUNTER 2017-09-12 13:22 | Inpatient (IN) | payer MEDICARE, MEDICAID ==
[2017-09-12] MEDS: HYDROcodone 10MG/APAP 325MG 1 EA TAB PO PRN ×2 (16:12→23:51)
[2017-09-12] MEDS ORDERED: SODIUM PHOS/BIPHOS ENEMA ADULT 133 ML BTTL PR PRN (17:20)
[2017-09-12] MEDS ORDERED: ACETAMINOPHEN 500 MG TAB PO PRN ×2 (17:20→17:23)
[2017-09-12] MEDS ORDERED: MAGNESIUM HYDROXIDE 30 ML UD PO PRN (17:20)
[2017-09-12] MEDS ORDERED: SODIUM CHLORIDE 0.9% (FLUSH) 10 ML SYG IV PRN (17:20)
[2017-09-12] MEDS ORDERED: tiZANidine 4 MG TAB PO PRN (17:23)
[2017-09-12] MEDS ORDERED: HYDROcodone 10MG/APAP 325MG 1 EA TAB PO PRN (17:23)
[2017-09-12] MEDS ORDERED: GLUCAGON INJ 1 MG VIAL SUBCU PRN (17:28)
[2017-09-12] MEDS ORDERED: DEXTROSE 50% 25 GM/50 ML SYG IV PRN (17:28)
[2017-09-12] MEDS ORDERED: FENTANYL TD SCH (17:30)
[2017-09-12] MEDS ORDERED: NON-FORMULARY MEDICATION 1 EA MIS (Lisinopril [Lisinopril] 20 MG) PO SCH (17:30)
[2017-09-12] MEDS ORDERED: fentaNYL PATCH 25 MCG/HR 1 EA PATCH TD SCH (17:30)
[2017-09-12] MEDS ORDERED: LISINOPRIL 10 MG TAB ONE (18:52)
--- NOTE | 2017-09-12 20:00 | HP ---
SUPERVISING PHYSICIAN: Wade Mills MD HISTORY OF PRESENT ILLNESS: This is a 57-year-old female patient who had originally been admitted to the hospital for a urinary tract infection with E. coli with multiresistant strain of E. coli. She was also in for sepsis. She has a significant history of diabetes as well as a left lower leg amputation. She was in the hospital and her condition improved, but after her labs normalized and she stabilized, she was discharged from the Acute Care setting and will be re-admitted to the hospital under [facility] for IV antibiotic therapy as well as wound care. PAST MEDICAL HISTORY: 1. Hypertension. 2. Gastroesophageal reflux disease. 3. Chronic anxiety disorder. 4. Diabetes mellitus on insulin therapy. 5. Chronic hyponatremia with baseline sodium of 125. 6. Chronic hypomagnesemia. 7. Previous below-knee amputation of left leg. PAST SURGICAL HISTORY: 1. Tubal ligation. 2. History of tracheotomy. 3. Left below-knee amputation in August 2015. CURRENT MEDICATIONS: Per the EMR and awaiting verification. ALLERGIES: PROTECTIVE ADHESIVE POWDER, SUMATRIPTAN. SOCIAL HISTORY: The patient is disabled. She live in [place], [place]. Her primary care physician is Dr. Gtz in [place]. She is a current smoker of approximately one pack a day. She denies any ETOH or illicit drug use. REVIEW OF SYSTEMS: Ten-point review of systems is negative. PHYSICAL EXAMINATION: VITAL SIGNS: Temperature 98.2. Blood pressure 125/74. Pulse 60. Respiratory rate 18. O2 saturation 93% on room air. GENERAL: This is a 57-year-old obese female who is lying in her hospital bed and is in no acute distress. HEENT: Normocephalic, atraumatic. Pupils are equal and reactive. Oropharynx is clear. NECK: Supple without mass. RESPIRATORY: Lungs are clear to auscultation bilaterally. CHEST: There is equal rise and fall of the chest with inspiration and expiration. CARDIOVASCULAR: Regular rate and rhythm. GASTROINTESTINAL: Abdomen is soft, nondistended, nontender. Bowel sounds are positive. EXTREMITIES: She has a [id number] amputation on the left and right lower leg has +1 edema and there is a dressing to the right heel that is dry and intact. NEUROLOGIC: Awake, alert and oriented times three. LABORATORY: There are no labs and films to report at this time. ASSESSMENT: 1. Urinary tract infection with multidrug resistant Escherichia coli. She has been on antibiotic therapy and will need to continue with that as a [facility]ing [facility] patient. 2. Chronic hyponatremia. The patient's baseline sodium is 125. 3. Diabetes mellitus, type 2, on insulin therapy. 4. Hypertension. 5. Chronic pain, currently on multiple pain medications. 6. Morbid obesity with a body mass index of 47. 7. Acute on chronic renal insufficiency. Her baseline creatinine is 1.4. 8. Normocytic/normochromic anemia, most likely secondary to chronic illness. 9. Chronic decubitus ulcer to the right heel requiring daily dressing changes and being followed by [facility] and Dr. Jevon Gtz in the outpatient setting. PLAN: We will admit the patient to [facility]ing [facility]. I have consulted physical therapy for strengthening and conditioning. We will do daily wound care to the right heel. She will also get Merrem 2 times daily until she completes her 14 days of antibiotic therapy on 09/22/17. We will try to get a PICC line placed in the next few days. No lab has been ordered at this time, but it may be beneficial to check her labs sometime next week with her electrolyte imbalances and chronic renal insufficiency. We will continue to monitor the patient closely and follow as needed. Dr. Mills is the collaborating physician and available for consultation. #[id number] [facility]ERSGurpreet
[2017-09-12] MEDS ORDERED: SODIUM CHL 0.9% 50ML MIN-BAG+ 50 ML IVPB ONE (20:30)
[2017-09-12] MEDS ORDERED: POTASSIUM CHLORIDE 20 MEQ TAB ONE (20:31)
[2017-09-12] MEDS ORDERED: MEROPENEM 1 GM VIAL IVPB ONE (20:32)
[2017-09-12] MEDS ORDERED: LORazepam 1 MG TAB ONE (20:32)
[2017-09-12] MEDS ORDERED: NYSTATIN CREAM 15 GM TUBE TOP SCH (21:00)
[2017-09-12] MEDS ORDERED: LORAZEPAM 2 MG PO SCH (21:00)
[2017-09-12] MEDS ORDERED: NON-FORMULARY MEDICATION 1 EA MIS (Potassium Chloride [Potassium Chloride Er] 20 MEQ) PO SCH (21:00)
[2017-09-12] MEDS: MEROPENEM 500 MG VIAL IVPB SCH (21:28)
[2017-09-12] MEDS: TORSEMIDE TAB 20 MG PO SCH (21:30)
[2017-09-12] MEDS: CILOSTAZOL 100 MG TAB PO SCH (21:31)
[2017-09-12] MEDS: GABAPENTIN 300 MG CAP PO SCH (21:31)
[2017-09-12] MEDS: PREGABALIN 75 MG CAP PO SCH (21:31)
[2017-09-12] MEDS: SODIUM CHLORIDE 0.9% (FLUSH) 10 ML SYG IV SCH (21:32)
[2017-09-12] MEDS: SILDENAFIL CITRATE PO SCH (21:33)
[2017-09-12] MEDS: IV SET AND CAP CHANGE INJ INJ SCH (21:34)
[2017-09-12] MEDS: NYSTATIN POWDER 15GM BTTL TOP SCH (21:34)
[2017-09-12] MEDS: CARVEDILOL 12.5 MG TAB PO SCH (21:34)
[2017-09-12] MEDS: URSODIOL 300 MG CAP PO SCH (21:34)
[2017-09-12] MEDS: INSULIN LISPRO 100 UNITS/ML PEN SUBCU SCH (21:41)
[2017-09-13] MEDS: INSULIN LISPRO 100 UNITS/ML PEN SUBCU SCH ×4 (07:14→20:49)
[2017-09-13] MEDS ORDERED: SIMVASTATIN 20 MG TAB PO SCH (09:00)
[2017-09-13] MEDS ORDERED: SODIUM CHL 0.9% 50ML MIN-BAG+ 50 ML IVPB ONE ×2 (09:33→19:41)
[2017-09-13] MEDS: POTASSIUM CHLORIDE 20 MEQ TAB PO SCH ×3 (09:38→17:47)
[2017-09-13] MEDS: ASPIRIN EC 81 MG TAB PO SCH (09:38)
[2017-09-13] MEDS: BIFIDOBACTERIUM INFANTIS 4 MG CAP PO SCH (09:38)
[2017-09-13] MEDS: LORazepam 1 MG TAB PO SCH ×3 (09:38→20:46)
[2017-09-13] MEDS: DOCUSATE SODIUM 100 MG CAP PO SCH (09:39)
[2017-09-13] MEDS: PREGABALIN 75 MG CAP PO SCH ×2 (09:39→20:49)
[2017-09-13] MEDS: CARVEDILOL 12.5 MG TAB PO SCH ×2 (09:39→20:49)
[2017-09-13] MEDS: TORSEMIDE TAB 20 MG PO SCH ×2 (09:39→20:47)
[2017-09-13] MEDS: FUROSEMIDE 40 MG TAB PO SCH (09:40)
[2017-09-13] MEDS: LISINOPRIL 10 MG TAB PO SCH (09:40)
[2017-09-13] MEDS: FERROUS SULFATE 325 MG TAB PO SCH (09:40)
[2017-09-13] MEDS: GABAPENTIN 300 MG CAP PO SCH ×3 (09:40→20:48)
[2017-09-13] MEDS: SODIUM CHLORIDE 0.9% (FLUSH) 10 ML SYG IV SCH ×2 (09:41→20:49)
[2017-09-13] MEDS: NICOTINE PATCH 14 MG TD SCH (09:41)
[2017-09-13] MEDS: ARIPiprazole 5 MG TAB PO SCH (09:41)
[2017-09-13] MEDS: NYSTATIN POWDER 15GM BTTL TOP SCH ×4 (09:42→21:00)
[2017-09-13] MEDS: metOLazone 2.5 MG TAB PO SCH (09:55)
[2017-09-13] MEDS: SILDENAFIL CITRATE PO SCH ×3 (09:57→20:48)
[2017-09-13] MEDS: URSODIOL 300 MG CAP PO SCH ×2 (10:12→20:49)
[2017-09-13] MEDS: MEROPENEM 500 MG in SODIUM CHL 0.9% 50ML MIN-BAG+ 50 ML IVPB SCH ×2 (10:18→20:50)
[2017-09-13] MEDS: MEROPENEM 500 MG VIAL IVPB SCH (10:22)
[2017-09-13] MEDS ORDERED: URSODIOL 300 MG CAP PO ONE (11:11)
[2017-09-13] MEDS: HYDROcodone 10MG/APAP 325MG 1 EA TAB PO PRN ×3 (11:20→20:46)
[2017-09-13] MEDS: DEXTROMETHORPHAN HBR PO SCH (12:26)
[2017-09-13] MEDS: TOLVAPTAN 15 MG PO SCH (12:26)
[2017-09-13] MEDS ORDERED: MEROPENEM 500 MG VIAL IVPB ONE (19:43)
[2017-09-13] MEDS: CILOSTAZOL 100 MG TAB PO SCH (20:47)
[2017-09-13] MEDS: SIMVASTATIN 20 MG TAB PO SCH (20:48)
[2017-09-14] MEDS: HYDROcodone 10MG/APAP 325MG 1 EA TAB PO PRN ×2 (07:38→17:08)
[2017-09-14] MEDS: INSULIN LISPRO 100 UNITS/ML PEN SUBCU SCH ×4 (07:43→21:09)
[2017-09-14] MEDS ORDERED: SODIUM CHL 0.9% 50ML MIN-BAG+ 50 ML IVPB ONE ×2 (08:33→19:43)
[2017-09-14] MEDS ORDERED: MEROPENEM 500 MG VIAL IVPB ONE ×2 (08:37→19:45)
[2017-09-14] MEDS: ARIPiprazole 5 MG TAB PO SCH (08:51)
[2017-09-14] MEDS: URSODIOL 300 MG CAP PO SCH ×2 (08:52→21:04)
[2017-09-14] MEDS: ASPIRIN EC 81 MG TAB PO SCH (08:53)
[2017-09-14] MEDS: BIFIDOBACTERIUM INFANTIS 4 MG CAP PO SCH (08:53)
[2017-09-14] MEDS: LORazepam 1 MG TAB PO SCH ×3 (08:53→21:04)
[2017-09-14] MEDS: CARVEDILOL 12.5 MG TAB PO SCH ×2 (08:53→21:03)
[2017-09-14] MEDS: DOCUSATE SODIUM 100 MG CAP PO SCH (08:53)
[2017-09-14] MEDS: TORSEMIDE TAB 20 MG PO SCH ×2 (08:54→21:03)
[2017-09-14] MEDS: fentaNYL PATCH 25 MCG/HR 1 EA PATCH TD SCH (08:55)
[2017-09-14] MEDS: FERROUS SULFATE 325 MG TAB PO SCH (08:55)
[2017-09-14] MEDS: NICOTINE PATCH 14 MG TD SCH (08:56)
[2017-09-14] MEDS: MEROPENEM 500 MG in SODIUM CHL 0.9% 50ML MIN-BAG+ 50 ML IVPB SCH ×2 (08:56→21:03)
[2017-09-14] MEDS: PREGABALIN 75 MG CAP PO SCH ×2 (08:56→21:04)
[2017-09-14] MEDS: FUROSEMIDE 40 MG TAB PO SCH (08:56)
[2017-09-14] MEDS: LISINOPRIL 10 MG TAB PO SCH (08:57)
[2017-09-14] MEDS: GABAPENTIN 300 MG CAP PO SCH ×3 (08:57→21:04)
[2017-09-14] MEDS: SODIUM CHLORIDE 0.9% (FLUSH) 10 ML SYG IV SCH ×2 (08:58→21:09)
[2017-09-14] MEDS: SILDENAFIL CITRATE PO SCH ×3 (08:58→21:06)
[2017-09-14] MEDS: metOLazone 2.5 MG TAB PO SCH (08:59)
[2017-09-14] MEDS: TOLVAPTAN 15 MG PO SCH (12:07)
[2017-09-14] MEDS: DEXTROMETHORPHAN HBR PO SCH (12:08)
[2017-09-14] MEDS: NYSTATIN POWDER 15GM BTTL TOP SCH ×4 (12:09→21:05)
[2017-09-14] MEDS: CILOSTAZOL 100 MG TAB PO SCH (21:04)
[2017-09-14] MEDS: SIMVASTATIN 20 MG TAB PO SCH (21:04)
[2017-09-15] MEDS: INSULIN LISPRO 100 UNITS/ML PEN SUBCU SCH ×4 (07:14→20:57)
[2017-09-15] MEDS ORDERED: SODIUM CHL 0.9% 50ML MIN-BAG+ 50 ML IVPB ONE ×2 (07:20→20:02)
[2017-09-15] MEDS ORDERED: MEROPENEM 500 MG VIAL IVPB ONE ×2 (07:22→20:04)
[2017-09-15] MEDS: TORSEMIDE TAB 20 MG PO SCH ×2 (09:05→20:42)
[2017-09-15] MEDS: FUROSEMIDE 40 MG TAB PO SCH (09:06)
[2017-09-15] MEDS: SILDENAFIL CITRATE PO SCH ×3 (09:06→20:42)
[2017-09-15] MEDS: ARIPiprazole 5 MG TAB PO SCH (09:06)
[2017-09-15] MEDS: metOLazone 2.5 MG TAB PO SCH (09:06)
[2017-09-15] MEDS: ASPIRIN EC 81 MG TAB PO SCH (09:07)
[2017-09-15] MEDS: LISINOPRIL 10 MG TAB PO SCH (09:07)
[2017-09-15] MEDS: FERROUS SULFATE 325 MG TAB PO SCH (09:07)
[2017-09-15] MEDS: PREGABALIN 75 MG CAP PO SCH ×2 (09:08→20:40)
[2017-09-15] MEDS: LORazepam 1 MG TAB PO SCH ×3 (09:08→20:40)
[2017-09-15] MEDS: URSODIOL 300 MG CAP PO SCH ×2 (09:08→20:41)
[2017-09-15] MEDS: CARVEDILOL 12.5 MG TAB PO SCH ×2 (09:08→20:42)
[2017-09-15] MEDS: MEROPENEM 500 MG in SODIUM CHL 0.9% 50ML MIN-BAG+ 50 ML IVPB SCH ×2 (09:08→20:43)
[2017-09-15] MEDS: DOCUSATE SODIUM 100 MG CAP PO SCH (09:08)
[2017-09-15] MEDS: BIFIDOBACTERIUM INFANTIS 4 MG CAP PO SCH (09:08)
[2017-09-15] MEDS: GABAPENTIN 300 MG CAP PO SCH ×3 (09:08→20:38)
[2017-09-15] MEDS: NICOTINE PATCH 14 MG TD SCH (09:08)
[2017-09-15] MEDS: HYDROcodone 10MG/APAP 325MG 1 EA TAB PO PRN ×2 (09:24→15:35)
[2017-09-15] MEDS: SODIUM CHLORIDE 0.9% (FLUSH) 10 ML SYG IV SCH ×2 (10:54→20:43)
[2017-09-15] MEDS: DEXTROMETHORPHAN HBR PO SCH (10:55)
[2017-09-15] MEDS: TOLVAPTAN 15 MG PO SCH (10:55)
[2017-09-15] MEDS: NYSTATIN POWDER 15GM BTTL TOP SCH ×4 (10:57→20:58)
--- NOTE | 2017-09-15 13:23 | PN ---
DATE: 09/15/17 SUPERVISING PHYSICIAN: Charli Ivey MD SUBJECTIVE: The patient has been afebrile since Swing Bed admission. She is scheduled for a PICC line tomorrow at 9 o'clock but has voiced that she would like to finish her antibiotic therapy for a total of 14-day course at home with infusion set up as an outpatient. She has threatened to leave AMA but after further discussion and the importance of continuing with antibiotic therapy, the patient has agreed as long as she can have outpatient therapy. OBJECTIVE: VITAL SIGNS: She remains afebrile. Temperature 97.0, pulse 57, blood pressure 133/77, respirations 20, saturation 95% on room air. I&Os are are well balanced. Weight 134/2 kg. GENERAL: The patient appears to be in no acute distress but she is quite tearful and emotional, yet falls asleep during the conversation. CHEST: Lungs clear to auscultation, slightly diminished towards the bases. HEART: Regular rate and rhythm. ABDOMEN: Obese, soft, non-tender, positive bowel sounds. EXTREMITIES: Right lower extremity continues with dressing and showing good granulation tissue of the heel. No other signs of infection. NEUROLOGICAL: Alert and oriented x 3. LABORATORY/RADIOLOGY: No additional studies are available. ASSESSMENT: 1. Urinary tract infection with multidrug resistant Escherichia coli having been treated on acute care with antibiotic therapy with Meropenem with need for continuation of Swing Bed for ongoing therapy for a total of 14 days on Meropenem.. 2. Bacteremia on acute care secondary to Escherichia coli that was noted in both blood cultures, multidrug resistant requiring Meropenem for a 14-day course for completion on 09/22/17. 3. Chronic hyponatremia, the patient back to baseline status on admission to Swing Bed at 125. 3. Diabetes mellitus, type 2, on insulin therapy. 4. Hypertension. 5. Chronic pain, currently on multiple pain medications. 6. Morbid obesity with a body mass index of 47. 7. Normocytic/normochromic anemia, likely secondary to chronic illness. 8. Chronic decubitus ulcer to the right heel requiring dressing changes and followed by [facility] and Dr. Jevon Gtz in the outpatient setting. PLAN: I did discuss with the patient after she was requesting to leave AMA and offered that her need for IV antibiotics was very important giving that she had a significant infection on acute care. The patient voiced that she would stay for an additional 24 to 48 hours if she could get a PICC line tomorrow and make arrangements to have the infusion of Meropenem as needed in an outpatient setting. Will discuss there was Frank in outpatient services that will instead of her having schedule a twice a day infusion of Meropenem which the patient says she is willing to do, after PICC line is placed which is scheduled for 9 o'clock tomorrow. Will continue with current plan of care with Meropenem and wound management. Will anticipate discharge either the next 48 hours or possibly on 09/22 after completion of a 14-day course of Meropenem. Until discharge, we will continue to monitor and treat appropriately #[id number]
[2017-09-15] MEDS: IV SET AND CAP CHANGE INJ INJ SCH (18:00)
[2017-09-15] MEDS: CILOSTAZOL 100 MG TAB PO SCH (20:39)
[2017-09-15] MEDS: SIMVASTATIN 20 MG TAB PO SCH (20:40)
[2017-09-16] MEDS: HYDROcodone 10MG/APAP 325MG 1 EA TAB PO PRN ×2 (01:46→07:11)
[2017-09-16] MEDS ORDERED: SODIUM CHL 0.9% 50ML MIN-BAG+ 50 ML IVPB ONE ×2 (07:45→19:33)
[2017-09-16] MEDS ORDERED: MEROPENEM 500 MG VIAL IVPB ONE ×2 (07:48→19:35)
[2017-09-16] MEDS: INSULIN LISPRO 100 UNITS/ML PEN SUBCU SCH ×4 (07:51→21:15)
[2017-09-16] MEDS: TORSEMIDE TAB 20 MG PO SCH ×2 (08:07→20:46)
[2017-09-16] MEDS: ARIPiprazole 5 MG TAB PO SCH (08:07)
[2017-09-16] MEDS: LORazepam 1 MG TAB PO SCH ×3 (08:07→20:46)
[2017-09-16] MEDS: GABAPENTIN 300 MG CAP PO SCH ×3 (08:08→20:46)
[2017-09-16] MEDS: BIFIDOBACTERIUM INFANTIS 4 MG CAP PO SCH (08:08)
[2017-09-16] MEDS: CARVEDILOL 12.5 MG TAB PO SCH ×2 (08:08→20:45)
[2017-09-16] MEDS: metOLazone 2.5 MG TAB PO SCH (08:08)
[2017-09-16] MEDS: FERROUS SULFATE 325 MG TAB PO SCH (08:08)
[2017-09-16] MEDS: NICOTINE PATCH 14 MG TD SCH (08:08)
[2017-09-16] MEDS: LISINOPRIL 10 MG TAB PO SCH (08:08)
[2017-09-16] MEDS: DOCUSATE SODIUM 100 MG CAP PO SCH (08:08)
[2017-09-16] MEDS: URSODIOL 300 MG CAP PO SCH ×2 (08:08→20:45)
[2017-09-16] MEDS: FUROSEMIDE 40 MG TAB PO SCH (08:09)
[2017-09-16] MEDS: ASPIRIN EC 81 MG TAB PO SCH (08:09)
[2017-09-16] MEDS: SILDENAFIL CITRATE PO SCH ×3 (08:09→20:45)
[2017-09-16] MEDS: MEROPENEM 500 MG in SODIUM CHL 0.9% 50ML MIN-BAG+ 50 ML IVPB SCH ×2 (08:10→20:40)
[2017-09-16] MEDS: SODIUM CHLORIDE 0.9% (FLUSH) 10 ML SYG IV SCH ×2 (09:36→20:38)
[2017-09-16] MEDS: DEXTROMETHORPHAN HBR PO SCH (09:36)
[2017-09-16] MEDS: PREGABALIN 75 MG CAP PO SCH ×2 (09:37→20:46)
[2017-09-16] MEDS: TOLVAPTAN 15 MG PO SCH (09:37)
[2017-09-16] MEDS: NYSTATIN POWDER 15GM BTTL TOP SCH ×4 (09:37→20:46)
--- NOTE | 2017-09-16 13:15 | RAD ---
EXAM DESCRIPTION: Chest,1 View CLINICAL HISTORY: PICC line placement COMPARISON: 09/08/2017 portable chest x-ray. Chest x-ray following this examination. TECHNIQUE: AP portable taken at 1237 hours, upright position. FINDINGS: PICC line introduced in the right upper extremity. The line courses into the right internal jugular vein and the tip is above the margin of the image. Cardiomegaly and bilateral infiltrates. No pneumothorax or mediastinal widening. IMPRESSION: PICC line introduced into the right upper extremity is not in optimal position. Please refer to report on follow-up chest x-ray after repositioning. Electronically signed by: Supa Pan MD 09/16/2017 1:14 PM CDT
--- NOTE | 2017-09-16 13:21 | RAD ---
EXAM DESCRIPTION: Chest,1 View CLINICAL HISTORY: PICC line placement COMPARISON: Portable chest x-ray at 1237 hours today. TECHNIQUE: AP portable taken at 1304 hours, supine position. FINDINGS: Right upper extremity PICC line tip is at the confluence of the left innominate vein and right subclavian artery, or the superior SVC. Guidewire is visible within the PICC line at the level of the lung apex. No pneumothorax or mediastinal widening. Cardiomegaly and bilateral pulmonary infiltrates. IMPRESSION: Tip of the right upper extremity PICC line is at the junction of the SVC and left innominate vein or in the superior SVC. No mediastinal widening. Results were called to the nurse on the mid surgical floor. Electronically signed by: Supa Pan MD 09/16/2017 1:19 PM CDT
--- NOTE | 2017-09-16 13:37 | RAD ---
EXAM DESCRIPTION: Chest,1 View CLINICAL HISTORY: PICC placement COMPARISON: Portable AP supine chest x-ray at 1304 hours today. TECHNIQUE: AP portable taken at 1326 hours, upright position. FINDINGS: Right upper extremity PICC line has been advanced. Tip is in the proximal SVC. No mediastinal widening or pneumothorax. Bilateral lung densities and cardiomegaly are stable. IMPRESSION: Customary position central PICC line introduced via right upper extremity. No radiologic evidence of complications. Electronically signed by: Supa Pan MD 09/16/2017 1:36 PM CDT
[2017-09-16] MEDS: ENOXAPARIN SODIUM 40 MG/0.4 ML SYG SUBCU SCH (14:47)
[2017-09-16] MEDS: SIMVASTATIN 20 MG TAB PO SCH (20:46)
[2017-09-16] MEDS: CILOSTAZOL 100 MG TAB PO SCH (20:46)
[2017-09-17] MEDS: HYDROcodone 10MG/APAP 325MG 1 EA TAB PO PRN ×3 (03:00→19:54)
[2017-09-17] MEDS: INSULIN LISPRO 100 UNITS/ML PEN SUBCU SCH ×4 (07:00→21:07)
[2017-09-17] MEDS ORDERED: SODIUM CHL 0.9% 50ML MIN-BAG+ 50 ML IVPB ONE ×2 (07:41→19:30)
[2017-09-17] MEDS ORDERED: MEROPENEM 500 MG VIAL IVPB ONE ×2 (07:44→19:31)
[2017-09-17] MEDS: LISINOPRIL 10 MG TAB PO SCH (08:31)
[2017-09-17] MEDS: ARIPiprazole 5 MG TAB PO SCH (08:31)
[2017-09-17] MEDS: metOLazone 2.5 MG TAB PO SCH (08:31)
[2017-09-17] MEDS: NICOTINE PATCH 14 MG TD SCH (08:31)
[2017-09-17] MEDS: URSODIOL 300 MG CAP PO SCH ×2 (08:31→20:33)
[2017-09-17] MEDS: FERROUS SULFATE 325 MG TAB PO SCH (08:32)
[2017-09-17] MEDS: BIFIDOBACTERIUM INFANTIS 4 MG CAP PO SCH (08:32)
[2017-09-17] MEDS: TORSEMIDE TAB 20 MG PO SCH ×2 (08:32→20:33)
[2017-09-17] MEDS: CARVEDILOL 12.5 MG TAB PO SCH ×2 (08:32→20:33)
[2017-09-17] MEDS: PREGABALIN 75 MG CAP PO SCH ×2 (08:32→20:34)
[2017-09-17] MEDS: ASPIRIN EC 81 MG TAB PO SCH (08:32)
[2017-09-17] MEDS: fentaNYL PATCH 25 MCG/HR 1 EA PATCH TD SCH (08:32)
[2017-09-17] MEDS: DOCUSATE SODIUM 100 MG CAP PO SCH (08:32)
[2017-09-17] MEDS: GABAPENTIN 300 MG CAP PO SCH ×3 (08:32→20:34)
[2017-09-17] MEDS: FUROSEMIDE 40 MG TAB PO SCH (08:32)
[2017-09-17] MEDS: LORazepam 1 MG TAB PO SCH ×3 (08:32→20:33)
[2017-09-17] MEDS: SILDENAFIL CITRATE PO SCH ×3 (08:33→20:35)
[2017-09-17] MEDS: ENOXAPARIN SODIUM 40 MG/0.4 ML SYG SUBCU SCH (08:33)
[2017-09-17] MEDS: MEROPENEM 500 MG in SODIUM CHL 0.9% 50ML MIN-BAG+ 50 ML IVPB SCH ×2 (08:34→20:34)
[2017-09-17] MEDS ORDERED: PROMETHAZINE HCL 25 MG TAB PO PRN (08:50)
[2017-09-17] MEDS: TOLVAPTAN 15 MG PO SCH (09:00)
[2017-09-17] MEDS: SODIUM CHLORIDE 0.9% (FLUSH) 10 ML SYG IV SCH ×2 (09:00→20:34)
[2017-09-17] MEDS ORDERED: HEPARIN SODIUM 100 U/ML 5 ML SYG IV ONE (09:07)
[2017-09-17] MEDS: NYSTATIN POWDER 15GM BTTL TOP SCH ×4 (09:10→20:34)
[2017-09-17] MEDS: DEXTROMETHORPHAN HBR PO SCH (11:43)
[2017-09-17] MEDS: CILOSTAZOL 100 MG TAB PO SCH (20:34)
[2017-09-17] MEDS: SIMVASTATIN 20 MG TAB PO SCH (20:35)
[2017-09-18] MEDS ORDERED: SODIUM CHL 0.9% 50ML MIN-BAG+ 50 ML IVPB ONE ×2 (07:44→19:06)
[2017-09-18] MEDS ORDERED: MEROPENEM 500 MG VIAL IVPB ONE ×2 (07:46→19:07)
[2017-09-18] MEDS: INSULIN LISPRO 100 UNITS/ML PEN SUBCU SCH ×4 (07:49→20:52)
[2017-09-18] MEDS: HYDROcodone 10MG/APAP 325MG 1 EA TAB PO PRN ×2 (07:58→15:22)
[2017-09-18] MEDS: URSODIOL 300 MG CAP PO SCH ×2 (08:00→20:32)
[2017-09-18] MEDS: TORSEMIDE TAB 20 MG PO SCH ×2 (08:00→20:32)
[2017-09-18] MEDS: SILDENAFIL CITRATE PO SCH ×3 (08:00→20:31)
[2017-09-18] MEDS: metOLazone 2.5 MG TAB PO SCH (08:01)
[2017-09-18] MEDS: NICOTINE PATCH 14 MG TD SCH (08:01)
[2017-09-18] MEDS: PREGABALIN 75 MG CAP PO SCH ×2 (08:01→20:32)
[2017-09-18] MEDS: GABAPENTIN 300 MG CAP PO SCH ×3 (08:01→20:32)
[2017-09-18] MEDS: ARIPiprazole 5 MG TAB PO SCH (08:01)
[2017-09-18] MEDS: FUROSEMIDE 40 MG TAB PO SCH (08:01)
[2017-09-18] MEDS: LISINOPRIL 10 MG TAB PO SCH (08:01)
[2017-09-18] MEDS: ASPIRIN EC 81 MG TAB PO SCH (08:02)
[2017-09-18] MEDS: CARVEDILOL 12.5 MG TAB PO SCH ×2 (08:02→20:32)
[2017-09-18] MEDS: BIFIDOBACTERIUM INFANTIS 4 MG CAP PO SCH (08:02)
[2017-09-18] MEDS: ENOXAPARIN SODIUM 40 MG/0.4 ML SYG SUBCU SCH (08:02)
[2017-09-18] MEDS: LORazepam 1 MG TAB PO SCH ×3 (08:02→20:32)
[2017-09-18] MEDS: FERROUS SULFATE 325 MG TAB PO SCH (08:02)
[2017-09-18] MEDS: DOCUSATE SODIUM 100 MG CAP PO SCH (08:02)
[2017-09-18] MEDS: NYSTATIN POWDER 15GM BTTL TOP SCH ×4 (08:03→20:32)
[2017-09-18] MEDS: TOLVAPTAN 15 MG PO SCH (08:04)
[2017-09-18] MEDS: DEXTROMETHORPHAN HBR PO SCH (08:11)
[2017-09-18] MEDS: MEROPENEM 500 MG in SODIUM CHL 0.9% 50ML MIN-BAG+ 50 ML IVPB SCH ×2 (08:18→20:30)
[2017-09-18] MEDS: SODIUM CHLORIDE 0.9% (FLUSH) 10 ML SYG IV SCH ×2 (08:19→20:30)
[2017-09-18] MEDS: CALCIUM CARBONATE (ANTACID) 500 MG CHEWABLE TAB PO PRN ×2 (16:02→21:25)
[2017-09-18] MEDS: IV SET AND CAP CHANGE INJ INJ SCH (18:26)
[2017-09-18] MEDS: SIMVASTATIN 20 MG TAB PO SCH (20:32)
[2017-09-18] MEDS: CILOSTAZOL 100 MG TAB PO SCH (20:32)
[2017-09-19] MEDS: INSULIN LISPRO 100 UNITS/ML PEN SUBCU SCH ×4 (07:46→21:27)
[2017-09-19] MEDS: HYDROcodone 10MG/APAP 325MG 1 EA TAB PO PRN ×2 (07:49→21:32)
[2017-09-19] MEDS ORDERED: SODIUM CHL 0.9% 50ML MIN-BAG+ 50 ML IVPB ONE ×2 (08:44→20:25)
[2017-09-19] MEDS ORDERED: MEROPENEM 500 MG VIAL IVPB ONE ×2 (08:46→20:27)
[2017-09-19] MEDS: ENOXAPARIN SODIUM 40 MG/0.4 ML SYG SUBCU SCH (09:32)
[2017-09-19] MEDS: ARIPiprazole 5 MG TAB PO SCH (09:33)
[2017-09-19] MEDS: FUROSEMIDE 40 MG TAB PO SCH (09:33)
[2017-09-19] MEDS: BIFIDOBACTERIUM INFANTIS 4 MG CAP PO SCH (09:33)
[2017-09-19] MEDS: PREGABALIN 75 MG CAP PO SCH ×2 (09:33→21:24)
[2017-09-19] MEDS: metOLazone 2.5 MG TAB PO SCH (09:33)
[2017-09-19] MEDS: URSODIOL 300 MG CAP PO SCH ×2 (09:34→21:22)
[2017-09-19] MEDS: NICOTINE PATCH 14 MG TD SCH (09:34)
[2017-09-19] MEDS: LORazepam 1 MG TAB PO SCH ×3 (09:34→21:25)
[2017-09-19] MEDS: CALCIUM CARBONATE (ANTACID) 500 MG CHEWABLE TAB PO PRN (09:34)
[2017-09-19] MEDS: LISINOPRIL 10 MG TAB PO SCH (09:34)
[2017-09-19] MEDS: CARVEDILOL 12.5 MG TAB PO SCH ×2 (09:34→21:24)
[2017-09-19] MEDS: SILDENAFIL CITRATE PO SCH ×3 (09:35→21:22)
[2017-09-19] MEDS: FERROUS SULFATE 325 MG TAB PO SCH (09:35)
[2017-09-19] MEDS: GABAPENTIN 300 MG CAP PO SCH ×3 (09:35→21:24)
[2017-09-19] MEDS: NYSTATIN POWDER 15GM BTTL TOP SCH ×4 (09:35→21:28)
[2017-09-19] MEDS: ASPIRIN EC 81 MG TAB PO SCH (09:35)
[2017-09-19] MEDS: DEXTROMETHORPHAN HBR PO SCH (09:36)
[2017-09-19] MEDS: SODIUM CHLORIDE 0.9% (FLUSH) 10 ML SYG IV SCH ×2 (09:36→21:25)
[2017-09-19] MEDS: MEROPENEM 500 MG in SODIUM CHL 0.9% 50ML MIN-BAG+ 50 ML IVPB SCH ×2 (09:37→21:20)
[2017-09-19] MEDS: TORSEMIDE TAB 20 MG PO SCH ×2 (09:47→21:24)
[2017-09-19] MEDS: TOLVAPTAN 15 MG PO SCH (09:53)
[2017-09-19] MEDS ORDERED: LOPERAMIDE CAP 2 MG CAP ONE (14:33)
[2017-09-19] MEDS ORDERED: ISOSORBIDE MONONITRATE (IMDUR) 30 MG TAB PO ONE (14:42)
[2017-09-19] MEDS ORDERED: LOPERAMIDE CAP 2 MG CAP PO ONE (14:46)
[2017-09-19] MEDS: CILOSTAZOL 100 MG TAB PO SCH (21:24)
[2017-09-19] MEDS: SIMVASTATIN 20 MG TAB PO SCH (21:25)
[2017-09-20] MEDS: INSULIN LISPRO 100 UNITS/ML PEN SUBCU SCH ×4 (07:38→21:11)
[2017-09-20] MEDS ORDERED: SODIUM CHL 0.9% 50ML MIN-BAG+ 50 ML IVPB ONE ×2 (08:25→19:52)
[2017-09-20] MEDS ORDERED: MEROPENEM 500 MG VIAL IVPB ONE ×2 (08:29→19:53)
[2017-09-20] MEDS: MEROPENEM 500 MG in SODIUM CHL 0.9% 50ML MIN-BAG+ 50 ML IVPB SCH ×2 (08:40→21:10)
[2017-09-20] MEDS: HYDROcodone 10MG/APAP 325MG 1 EA TAB PO PRN ×2 (08:52→16:24)
[2017-09-20] MEDS: TORSEMIDE TAB 20 MG PO SCH ×2 (08:53→21:08)
[2017-09-20] MEDS: BIFIDOBACTERIUM INFANTIS 4 MG CAP PO SCH (08:54)
[2017-09-20] MEDS: LORazepam 1 MG TAB PO SCH ×3 (08:54→21:09)
[2017-09-20] MEDS: ASPIRIN EC 81 MG TAB PO SCH (08:55)
[2017-09-20] MEDS: FUROSEMIDE 40 MG TAB PO SCH (08:55)
[2017-09-20] MEDS: URSODIOL 300 MG CAP PO SCH ×2 (08:55→21:08)
[2017-09-20] MEDS: metOLazone 2.5 MG TAB PO SCH (08:55)
[2017-09-20] MEDS: PREGABALIN 75 MG CAP PO SCH ×2 (08:57→21:08)
[2017-09-20] MEDS: CARVEDILOL 12.5 MG TAB PO SCH ×2 (08:57→21:08)
[2017-09-20] MEDS: GABAPENTIN 300 MG CAP PO SCH ×3 (08:57→21:08)
[2017-09-20] MEDS: ARIPiprazole 5 MG TAB PO SCH (08:57)
[2017-09-20] MEDS: NICOTINE PATCH 14 MG TD SCH (08:57)
[2017-09-20] MEDS: LISINOPRIL 10 MG TAB PO SCH (08:57)
[2017-09-20] MEDS: NYSTATIN POWDER 15GM BTTL TOP SCH ×4 (08:58→21:12)
[2017-09-20] MEDS: SODIUM CHLORIDE 0.9% (FLUSH) 10 ML SYG IV SCH ×2 (08:58→21:09)
[2017-09-20] MEDS: ENOXAPARIN SODIUM 40 MG/0.4 ML SYG SUBCU SCH (08:58)
[2017-09-20] MEDS: TOLVAPTAN 15 MG PO SCH (08:59)
[2017-09-20] MEDS: SILDENAFIL CITRATE PO SCH ×3 (08:59→21:10)
[2017-09-20] MEDS: fentaNYL PATCH 25 MCG/HR 1 EA PATCH TD SCH (09:01)
[2017-09-20] MEDS: DEXTROMETHORPHAN HBR PO SCH (09:01)
[2017-09-20] MEDS: FERROUS SULFATE 325 MG TAB PO SCH (09:02)
[2017-09-20] MEDS: SIMVASTATIN 20 MG TAB PO SCH (21:08)
[2017-09-20] MEDS: CILOSTAZOL 100 MG TAB PO SCH (21:09)
[2017-09-20] MEDS: CALCIUM CARBONATE (ANTACID) 500 MG CHEWABLE TAB PO PRN (21:09)
[2017-09-21] MEDS: HYDROcodone 10MG/APAP 325MG 1 EA TAB PO PRN ×3 (03:46→20:44)
[2017-09-21] MEDS: INSULIN LISPRO 100 UNITS/ML PEN SUBCU SCH ×4 (07:48→21:29)
[2017-09-21] MEDS: URSODIOL 300 MG CAP PO SCH ×2 (09:19→20:41)
[2017-09-21] MEDS: FERROUS SULFATE 325 MG TAB PO SCH (09:19)
[2017-09-21] MEDS: BIFIDOBACTERIUM INFANTIS 4 MG CAP PO SCH (09:19)
[2017-09-21] MEDS: metOLazone 2.5 MG TAB PO SCH (09:19)
[2017-09-21] MEDS: NICOTINE PATCH 14 MG TD SCH (09:19)
[2017-09-21] MEDS: ASPIRIN EC 81 MG TAB PO SCH (09:19)
[2017-09-21] MEDS: TORSEMIDE TAB 20 MG PO SCH ×2 (09:19→20:38)
[2017-09-21] MEDS: PREGABALIN 75 MG CAP PO SCH ×2 (09:19→20:38)
[2017-09-21] MEDS: FUROSEMIDE 40 MG TAB PO SCH (09:19)
[2017-09-21] MEDS: GABAPENTIN 300 MG CAP PO SCH ×3 (09:20→20:38)
[2017-09-21] MEDS: ENOXAPARIN SODIUM 40 MG/0.4 ML SYG SUBCU SCH (09:20)
[2017-09-21] MEDS: ARIPiprazole 5 MG TAB PO SCH (09:20)
[2017-09-21] MEDS: SILDENAFIL CITRATE PO SCH ×3 (09:20→20:41)
[2017-09-21] MEDS: LISINOPRIL 10 MG TAB PO SCH (09:20)
[2017-09-21] MEDS: NYSTATIN POWDER 15GM BTTL TOP SCH ×4 (09:21→20:40)
[2017-09-21] MEDS: SODIUM CHLORIDE 0.9% (FLUSH) 10 ML SYG IV SCH ×2 (09:21→20:50)
[2017-09-21] MEDS: LORazepam 1 MG TAB PO SCH ×3 (09:27→20:38)
[2017-09-21] MEDS: DEXTROMETHORPHAN HBR PO SCH (09:29)
[2017-09-21] MEDS: TOLVAPTAN 15 MG PO SCH (09:29)
[2017-09-21] MEDS ORDERED: SODIUM CHL 0.9% 50ML MIN-BAG+ 50 ML IVPB ONE ×2 (09:58→19:36)
[2017-09-21] MEDS ORDERED: MEROPENEM 500 MG VIAL IVPB ONE ×2 (09:58→19:37)
[2017-09-21] MEDS: CARVEDILOL 12.5 MG TAB PO SCH ×2 (10:02→20:37)
[2017-09-21] MEDS: MEROPENEM 500 MG in SODIUM CHL 0.9% 50ML MIN-BAG+ 50 ML IVPB SCH ×2 (10:02→20:49)
[2017-09-21] MEDS: IV SET AND CAP CHANGE INJ INJ SCH (16:58)
[2017-09-21] MEDS: CILOSTAZOL 100 MG TAB PO SCH (20:37)
[2017-09-21] MEDS: SIMVASTATIN 20 MG TAB PO SCH (20:38)
[2017-09-22] MEDS: HYDROcodone 10MG/APAP 325MG 1 EA TAB PO PRN (05:24)
[2017-09-22] MEDS ORDERED: SODIUM CHL 0.9% 50ML MIN-BAG+ 50 ML IVPB ONE (07:04)
[2017-09-22] MEDS ORDERED: MEROPENEM 500 MG VIAL IVPB ONE (07:06)
[2017-09-22] MEDS: INSULIN LISPRO 100 UNITS/ML PEN SUBCU SCH ×2 (07:17→13:07)
[2017-09-22] MEDS: metOLazone 2.5 MG TAB PO SCH (08:22)
[2017-09-22] MEDS: ARIPiprazole 5 MG TAB PO SCH (08:22)
[2017-09-22] MEDS: LORazepam 1 MG TAB PO SCH (08:23)
[2017-09-22] MEDS: ENOXAPARIN SODIUM 40 MG/0.4 ML SYG SUBCU SCH (08:23)
[2017-09-22] MEDS: PREGABALIN 75 MG CAP PO SCH (08:23)
[2017-09-22] MEDS: LISINOPRIL 10 MG TAB PO SCH (08:23)
[2017-09-22] MEDS: BIFIDOBACTERIUM INFANTIS 4 MG CAP PO SCH (08:23)
[2017-09-22] MEDS: TORSEMIDE TAB 20 MG PO SCH (08:23)
[2017-09-22] MEDS: GABAPENTIN 300 MG CAP PO SCH (08:23)
[2017-09-22] MEDS: ASPIRIN EC 81 MG TAB PO SCH (08:23)
[2017-09-22] MEDS: MEROPENEM 500 MG in SODIUM CHL 0.9% 50ML MIN-BAG+ 50 ML IVPB SCH (08:24)
[2017-09-22] MEDS: FUROSEMIDE 40 MG TAB PO SCH (08:24)
[2017-09-22] MEDS: FERROUS SULFATE 325 MG TAB PO SCH (08:24)
[2017-09-22] MEDS: CARVEDILOL 12.5 MG TAB PO SCH (08:24)
[2017-09-22] MEDS: DEXTROMETHORPHAN HBR PO SCH (08:26)
[2017-09-22] MEDS: URSODIOL 300 MG CAP PO SCH (08:26)
[2017-09-22] MEDS: NICOTINE PATCH 14 MG TD SCH (08:26)
[2017-09-22] MEDS: SODIUM CHLORIDE 0.9% (FLUSH) 10 ML SYG IV SCH (08:26)
[2017-09-22] MEDS: SILDENAFIL CITRATE PO SCH (08:27)
[2017-09-22] MEDS: TOLVAPTAN 15 MG PO SCH (08:27)
[2017-09-22] MEDS: NYSTATIN POWDER 15GM BTTL TOP SCH (08:27)
[2017-09-22 10:04] VITALS: BP 143/77; TEMP 98.3; O2SAT 97
--- NOTE | 2017-09-22 20:30 | DS ---
SUPERVISING PHYSICIAN: Andi Jacobo M.D. DISCHARGE DIAGNOSIS: 1. Urinary tract infection with multidrug resistant Escherichia coli having been treated on acute care with antibiotic therapy with Meropenem with need for continuation of Swing Bed for ongoing therapy for a total of 14 days on Meropenem.. 2. Bacteremia on acute care secondary to Escherichia coli that was noted in both blood cultures, multidrug resistant requiring Meropenem for a 14-day course for completion on 09/22/17. 3. Chronic hyponatremia, the patient back to baseline status on admission to Swing Bed at 125. 3. Diabetes mellitus, type 2, on insulin therapy. 4. Hypertension. 5. Chronic pain, currently on multiple pain medications. 6. Morbid obesity with a body mass index of 47. 7. Normocytic/normochromic anemia, likely secondary to chronic illness. 8. Chronic decubitus ulcer to the right heel requiring dressing changes and followed by [facility] and Dr. Jevon Gtz in the outpatient setting. HISTORY OF PRESENT ILLNESS: This is a 57-year-old female patient who had originally been admitted to the hospital for a urinary tract infection with a multidrug resistant strain of E. coli. She was also in for sepsis. She has a significant history of diabetes as well as a left lower leg amputation. During her course in the Acute Care setting, her condition improved. Her labs normalized and she was discharged from the Acute Care setting and re-admitted to the hospital under Swing Bed for IV antibiotic therapy as well as wound care. HOSPITAL COURSE: She has been on Merrem 3 times daily since her admission. On Saturday, the patient received a PICC line for continued antibiotic therapy. Wound care was done on her right leg. Her Levemir insulin was discontinued during her Swing Bed admission. Her blood sugars in the last 24 hours have been running between 217 and 158 with NovoLog sliding scale only. She has completed her IV antibiotic therapy and she will be discharged home in stable condition. DISCHARGE PLAN: The patient will be discharged home in stable condition. She is to have [facility]. They will do PICC line care as well as wound care as previously ordered. She is to resume her diabetic diet. She is to resume her previous medications with no change with the exception of she is to take Levemir 10 units at bedtime and Dr. Gtz can adjust her Levemir as he sees fit at her followup visit. She is to followup with her primary care physician, Dr. Jevon Gtz, on 09/27/17 at 10:00 AM. It is recommended that she have a followup with Dr. Dillard, Infectious Diseases in [place]. I have not discontinued her PICC line pending further evaluation and if her PICC line needs to be discontinued after she sees Dr. Gtz, his office or [facility] can discontinue it. We have called [facility] and they are to do their routine PICC line care. She is to return to the hospital or call Dr. Gtz's office for further problems or complications. DISCHARGE MEDICATIONS: 1. Levemir. 2. Neurontin. 3. Lorazepam. 4. Lisinopril. 5. Abilify. 6. Lasix. 7. NovoLog. 8. Zanaflex. 9. Zocor. 10. Hydrocodone. 11. Potassium chloride. 12. Ferrous sulfate. 13. Loperamide. 14. Aspirin. 15. Acetaminophen. 16. Nystatin. 17. Ibuprofen. 18. Nexium. 19. Creomulsion Adult. 20. Samsca. 21. Lyrica. 22. NicoDerm. 23. Carvedilol. 24. Demadex. 25. Zaroxolyn. 26. Pletal. 27. Sildenafil. 28. Actigall. 29. Duragesic. 30. Align. 31. Fentanyl patch. #[id number] and #[id number] [facility]
== END 2017-09-22 12:15 | disposition home health service (06) | DRG 690 ==
LOC: MS 13:22
PROVIDERS: ADMIT Nurse Practitioner Acute Care; ATTEND Nurse Practitioner Acute Care
PROC: 02HV33Z Insertion of Infusion Device into Superior Vena Cava, Percutaneous Approach (ICD-10-PCS; principal; 2017-09-16)
DX: N39.0 Urinary tract infection, site not specified (principal); E87.1 Hypo-osmolality and hyponatremia; Z68.42 Body mass index [BMI] 45.0-49.9, adult; B96.20 Unspecified Escherichia coli [E. coli] as the cause of diseases classified elsewhere; Z16.24 Resistance to multiple antibiotics; E11.21 Type 2 diabetes mellitus with diabetic nephropathy; I12.9 Hypertensive chronic kidney disease with stage 1 through stage 4 chronic kidney disease, or unspecified chronic kidney disease; K21.9 Gastro-esophageal reflux disease without esophagitis; F41.9 Anxiety disorder, unspecified; E83.42 Hypomagnesemia; F17.210 Nicotine dependence, cigarettes, uncomplicated; E66.01 Morbid (severe) obesity due to excess calories; G89.29 Other chronic pain; N18.9 Chronic kidney disease, unspecified; D64.9 Anemia, unspecified; L89.619 Pressure ulcer of right heel, unspecified stage; Z88.8 Allergy status to other drugs, medicaments and biological substances; Z89.512 Acquired absence of left leg below knee; Z79.4 Long term (current) use of insulin; Z79.891 Long term (current) use of opiate analgesic; Z79.82 Long term (current) use of aspirin; Z79.1 Long term (current) use of non-steroidal anti-inflammatories (NSAID); Z79.899 Other long term (current) drug therapy

== ENCOUNTER 2017-10-04 16:45 | Emergency (ER) | payer MEDICARE, MEDICAID ==
[2017-10-04 17:01] VITALS: TEMP 97.8
[2017-10-04] MEDS ORDERED: ALUM & MAG HYDROX-SIMETHICONE 30 ML, LIDOCAINE VISCOUS 2% 15 ML PO ONE ×2 (17:02)
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
[2017-10-04] MEDS ORDERED: LIDOCAINE HCL 2% (MOUTH-THROAT) 15 ML UD ONE (17:21)
[2017-10-04] MEDS ORDERED: ALUM & MAG HYDROX-SIMETHICONE 30 ML UD ONE (17:21)
--- NOTE | 2017-10-04 17:36 | RAD ---
EXAM DESCRIPTION: Abdomen Flat Upright CLINICAL HISTORY: abdominal pain COMPARISON: None. TECHNIQUE: AP supine and upright views the abdomen. FINDINGS: Exam is mildly limited because of the patient's size. The bowel gas pattern is unremarkable. There is a generalized haziness about the abdomen. No evidence of free air is seen. No worrisome calcifications are observed. IMPRESSION: Exam is mildly limited by the patient's size. No abnormality is detected. Electronically signed by: Triston Haas MD 10/04/2017 5:35 PM CDT
[2017-10-04] MEDS ORDERED: SOD CHL 3% *HYPERTONIC* 500ML 100 ML IVS ONE (18:12)
[2017-10-04 19:07] VITALS: BP 112/68; O2SAT 97
== END 2017-10-04 19:00 | disposition short-term general hospital (02) ==
LOC: ER 16:45
DX: E87.1 Hypo-osmolality and hyponatremia (principal); R53.83 Other fatigue; J44.9 Chronic obstructive pulmonary disease, unspecified; J45.909 Unspecified asthma, uncomplicated; I11.0 Hypertensive heart disease with heart failure; I50.9 Heart failure, unspecified; E11.621 Type 2 diabetes mellitus with foot ulcer; L97.519 Non-pressure chronic ulcer of other part of right foot with unspecified severity; K21.9 Gastro-esophageal reflux disease without esophagitis; F17.200 Nicotine dependence, unspecified, uncomplicated; Z87.891 Personal history of nicotine dependence; Z79.4 Long term (current) use of insulin; Z79.82 Long term (current) use of aspirin; Z79.899 Other long term (current) drug therapy; Z89.512 Acquired absence of left leg below knee
CPT/HCPCS: 36415; 74019; 80053; 83605; 85025; J7799

== ENCOUNTER 2017-10-10 17:35 | Emergency (ER) | payer MEDICARE, MEDICAID ==
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
--- NOTE | 2017-10-10 18:27 | RAD ---
EXAM DESCRIPTION: Chest,1 View CLINICAL HISTORY: 57 years Female, WEAKNESS, NOT FEELING WELL COMPARISON: Previous study September 16, 2017 TECHNIQUE: AP portable chest. FINDINGS: Heart size is large with prominent central pulmonary vascularity. Increased density is seen in the medial right lung base which could be mild pneumonic infiltrate or partial volume loss. Right minor fissure appears slightly elevated with partial volume loss in the right perihilar region. Previous study showed a peripheral central catheter which is not seen on the present study. No pulmonary mass or worrisome nodule. No pneumothorax or pleural effusion. Bones are unremarkable. IMPRESSION: Large heart without congestive failure. Right lower lobe infiltrate consistent with pneumonia. Electronically signed by: Jm Weathers MD 10/10/2017 6:26 PM CDT
[2017-10-10] MEDS ORDERED: SODIUM CHLORIDE 0.9% 1000ML 1,000 ML IVS ONE (19:18)
[2017-10-10] MEDS ORDERED: cefTRIAXone SODIUM 1 GM in SODIUM CHL 0.9% 50ML MIN-BAG+ 50 ML IVPB ONE (19:19)
[2017-10-10] MEDS ORDERED: cefTRIAXone SODIUM 1 GM VIAL ONE (19:33)
[2017-10-10] MEDS ORDERED: SODIUM CHL 0.9% 50ML MIN-BAG+ 50 ML IVPB ONE (19:33)
[2017-10-10 22:31] VITALS: BP 182/64; TEMP 98.2; O2SAT 98
== END 2017-10-10 21:40 | disposition home or self-care (01) ==
LOC: ER 17:35
DX: N39.0 Urinary tract infection, site not specified (principal); E87.1 Hypo-osmolality and hyponatremia; E11.9 Type 2 diabetes mellitus without complications; I11.0 Hypertensive heart disease with heart failure; I50.9 Heart failure, unspecified; J44.9 Chronic obstructive pulmonary disease, unspecified; J45.909 Unspecified asthma, uncomplicated; Z87.891 Personal history of nicotine dependence; Z79.82 Long term (current) use of aspirin; Z79.4 Long term (current) use of insulin
CPT/HCPCS: 36415; 71045; 80053; 81001; 85025; 87086; J0696; J7030; J7050

== ENCOUNTER → 2017-10-21 | Outpatient (CLI) | payer MEDICARE, MEDICAID | LOC: LAB.NP 16:17 | PROVIDERS: ATTEND Emergency Medicine | DX: E87.1 Hypo-osmolality and hyponatremia (principal) ==

== ENCOUNTER → 2017-11-09 | Outpatient (CLI) | payer MEDICARE, MEDICAID | LOC: LAB.NP 09:32 | PROVIDERS: ATTEND Emergency Medicine | DX: E87.1 Hypo-osmolality and hyponatremia (principal) ==

== ENCOUNTER 2018-01-25 10:59 | Emergency (ER) | payer MEDICARE, MEDICAID ==
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
[2018-01-25] MEDS ORDERED: FUROSEMIDE INJ 40 MG/4 ML VIAL IV ONE (11:41)
[2018-01-25 11:44] VITALS: TEMP 98.2
--- NOTE | 2018-01-25 12:46 | RAD ---
PROCEDURE: XR CHEST 1 VIEW HISTORY: CHF COMPARISON: 10/10/2017 TECHNIQUE: Single projection of the chest was done. FINDINGS: The lung bautista are well inflated . There are no discrete airspace infiltrates, pneumothoraces or pleural effusions. The pulmonary vascularity is normal. The cardiomediastinal silhouette is stable. IMPRESSION: There is no acute pleural-parenchymal process seen in the imaged lung bautista. Location of Interpretation: [facility] Electronically signed by: Eron Mcmahan MD 01/25/2018 12:45 PM CDT Workstation: [id number]
[2018-01-25] MEDS ORDERED: SOD POLYSTYRENE SULFONATE 15 GM/60 ML BTTL PO ONE (13:17)
[2018-01-25 13:34] VITALS: BP 154/67; O2SAT 97
== END 2018-01-25 13:34 | disposition home or self-care (01) ==
LOC: ER 10:59
DX: I50.9 Heart failure, unspecified (principal); J44.9 Chronic obstructive pulmonary disease, unspecified; I11.0 Hypertensive heart disease with heart failure; E11.9 Type 2 diabetes mellitus without complications; K21.9 Gastro-esophageal reflux disease without esophagitis; Z86.19 Personal history of other infectious and parasitic diseases; Z87.891 Personal history of nicotine dependence; Z79.4 Long term (current) use of insulin; Z79.82 Long term (current) use of aspirin; Z79.899 Other long term (current) drug therapy; Z88.8 Allergy status to other drugs, medicaments and biological substances
CPT/HCPCS: 36415; 71045; 80053; 83880; 84484; 85025; 85610; 85730; 93005; J1940

== ENCOUNTER 2018-04-25 13:42 | Emergency (ER) | payer MEDICARE, MEDICAID ==
[2018-04-25] MEDS ORDERED: IPRATROPIUM/ALBUTEROL 3 ML VIAL NEB ONE ×2 (13:54→13:56)
[2018-04-25] MEDS ORDERED: LEVALBUTEROL NEBS 1.25 MG/3 ML VIAL NEB ONE ×3 (13:54→14:22)
[2018-04-25] MEDS ORDERED: methylPREDNISolone SODIUM SUC 125 MG/2 ML VIAL IV ONE (13:56)
[2018-04-25] MEDS ORDERED: cefTRIAXone SODIUM 2 GM in SODIUM CHL 0.9% 100ML MINI-BAG 100 ML IVPB ONE (13:58)
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
[2018-04-25] MEDS ORDERED: SODIUM CHL 0.9% 100ML MINI-BAG 100 ML IVPB ONE (14:21)
[2018-04-25] MEDS ORDERED: SODIUM CHL 0.9% 50ML VIAL 3 ML, ALBUTEROL SULFATE NEBS 15 MG NEB ONE ×2 (14:40)
[2018-04-25] MEDS ORDERED: FUROSEMIDE INJ 100 MG/10 ML VIAL IV ONE (14:44)
--- NOTE | 2018-04-25 14:44 | RAD ---
EXAM DESCRIPTION: Chest,1 View CLINICAL HISTORY: SOB/COPD exac COMPARISON: 25 January 2018 TECHNIQUE: AP portable chest FINDINGS: Cardiomegaly is evident. Focal infiltrate is observed in the right lung base consistent with pneumonia. Pulmonary vascular congestion is noted. IMPRESSION: Focal infiltrate is observed in the right lung base consistent with pneumonia. Electronically signed by: Triston Haas MD 04/25/2018 2:43 PM LEAD BASED PAINT TECHNICIAN
[2018-04-25] MEDS ORDERED: AZITHROMYCIN IV 500 MG in SODIUM CHLORIDE 0.9% 250ML 250 ML IVPB ONE (14:46)
[2018-04-25] MEDS ORDERED: SODIUM CHLORIDE 0.9% 50 ML VIAL ONE (14:47)
[2018-04-25] MEDS ORDERED: HYDROcodone 10MG/APAP 325MG 1 EA TAB PO ONE (14:48)
[2018-04-25] MEDS ORDERED: ALBUTEROL SULFATE 2.5 MG/3 ML VIAL NEB ONE ×2 (14:48→14:55)
[2018-04-25] MEDS ORDERED: AZITHROMYCIN IV 500 MG VIAL IVPB ONE (15:23)
[2018-04-25] MEDS ORDERED: SODIUM CHLORIDE 0.9% 250ML 250 ML ONE (15:24)
[2018-04-25 17:08] VITALS: BP 148/91; TEMP 100.8; O2SAT 96
== END 2018-04-25 16:40 | disposition short-term general hospital (02) ==
LOC: ER 13:42
DX: J18.9 Pneumonia, unspecified organism (principal); J44.1 Chronic obstructive pulmonary disease with (acute) exacerbation; I50.9 Heart failure, unspecified; I11.0 Hypertensive heart disease with heart failure; F32.9 Major depressive disorder, single episode, unspecified; E11.9 Type 2 diabetes mellitus without complications; K21.9 Gastro-esophageal reflux disease without esophagitis; E78.5 Hyperlipidemia, unspecified; Z86.19 Personal history of other infectious and parasitic diseases; Z87.891 Personal history of nicotine dependence; Z79.82 Long term (current) use of aspirin; Z79.4 Long term (current) use of insulin; Z79.899 Other long term (current) drug therapy; Z86.73 Personal history of transient ischemic attack (TIA), and cerebral infarction without residual deficits
CPT/HCPCS: 36600; 71045; 80053; 81001; 82550; 82553; 82803; 82805; 83605; 83880; 84484; 85025; 87077; 87086; 87186; 87502; 93005; 94640; 94644; 94660; J0456; J0696; J1940; J2930; J7050; J7611; J7614; J7620

== ENCOUNTER → 2018-07-29 | Outpatient (CLI) | payer MEDICARE, MEDICAID ==
--- NOTE | 2018-07-29 23:05 | MRI ---
EXAM DESCRIPTION: Cervical Spine CLINICAL HISTORY: 57 years Female, CERVICALGIA COMPARISON: CT chest 11/25/2014 TECHNIQUE: Multisequence, multiplanar images of the cervical spine were obtained without intravenous contrast. FINDINGS: Vertebrae: No acute fracture. No acute compression deformity. There is straightening of the cervical spine which may be positional or due to muscle spasm. AP alignment is maintained. A 7 mm vertebral body hemangiomas within anterior superior T2 vertebral body. Marrow signal of the cervical spine predominantly within normal limits. Spinal cord: The cervical cord is normal in signal and contour. Cerebellar tonsils are normal in position. Discs, facets, spinal canal, and neural foramina: Disc desiccation throughout the cervical spine at C2-C3 through C6-C7. Disc space heights are overall maintained. C2-C3: No disc osteophyte complex. Mild left uncovertebral and facet arthropathy. Spinal canal is patent. Mild left but no right neural foraminal stenosis. C3-C4: Mild bilateral uncovertebral and mild right, moderate left facet arthropathy. Spinal canal is patent. Mild right and moderate left neural foraminal stenosis. C4-C5: Moderate bilateral uncovertebral facet arthropathy. Spinal canal is patent. Moderate bilateral neural foraminal stenosis. C5-6: Small disc osteophyte complex. Moderate bilateral uncovertebral and mild bilateral facet arthropathy. Spinal canal is patent. Mild right and moderate left neural foraminal stenosis. C6-C7: Small disc osteophyte complex with moderate right and severe left uncovertebral spurring. Moderate facet arthropathy. Mild spinal canal stenosis. Mild right and moderate left neural foraminal stenosis. C7-T1: Spinal canal and neuroforamina are patent. Other findings: Paravertebral soft tissues unremarkable there is a 2.3 cm T2 hyperintense lesion in the right thyroid gland. IMPRESSION: 1. No acute fracture or acute compression deformity. 2. Cervical spondylosis with no greater than mild spinal canal stenosis. 3. Multilevel neural foraminal, mild, greatest and moderate at left C4, bilateral C5, left C6, left C7. 4. 2.3 cm right thyroid lesion, unchanged in size from CT chest 11/25/2014. Given size and patient's age, further evaluation with dedicated ultrasound thyroid gland is recommended if not already performed. Electronically signed by: Edouard Ann MD 07/29/2018 11:01 PM CDT
--- NOTE | 2018-07-29 23:21 | MRI ---
EXAM DESCRIPTION: Lumbar Spine w/o Contrast CLINICAL HISTORY: 57 years Female, RADICULOPATHY COMPARISON: None. TECHNIQUE: Multisequence, multiplanar images of the lumbar spine without intravenous contrast. FINDINGS: For the purpose of this report, the designated L5-S1 disc space will be referred to as axial T2 image 3, series 501. Vertebrae: There is transitional anatomy with lumbarization of S1. No acute fracture. No acute compression deformity. Moderate lumbar lordosis. AP alignment is maintained. 10 mm of vertebral body hemangioma within central L5 vertebral body. T1 hypointense and mildly T2 hyperintense lesion within L1 measuring approximately 15 mm. This lesion contains no internal STIR hyperintensity. This likely represents an atypical hemangioma. Spinal cord: The conus medullaris terminates at T12-L1. The nerve roots of the cauda equina are normal. Discs, facets, spinal canal, and neural foramina: Disc desiccation at L3-L4 and below. Mild L5-S1 disc space narrowing. L1-L2: No disc bulge. [id number] facet arthropathy. Spinal canal is patent. Neuroforamina are patent. L2-L3: No disc bulge. Moderate facet arthropathy. Mild spinal canal stenosis. Mild bilateral neural foraminal stenosis. L3-L4: Minimal disc bulge. Severe facet arthropathy. Moderate spinal canal stenosis with AP narrowing to 8 mm. Mild bilateral neural foraminal stenosis. L4-5: Minimal disc bulge and superimposed left foraminal linear annular fissure measuring 6 cm wide 1 mm thick. Moderate facet arthropathy. Moderate spinal canal stenosis with AP narrowing to 8 mm. Moderate bilateral neural foraminal stenosis. L5-S1: Small disc bulge and superimposed left paracentral disc protrusion measuring approximately 16 mm wide and 6 mm thick. Tiny posterior central annular fissure is within the disc protrusion as well. Severe facet arthropathy. Findings contribute to moderate left lateral recess stenosis likely impinging the transiting left S1 nerve root. Moderate spinal canal stenosis with AP narrowing 7 mm. Mild bilateral neural foraminal stenosis. Paraspinous soft tissues: Normal. IMPRESSION: 1. No acute fracture or acute compression deformity. 2. Lumbar spondylosis with up to moderate spinal canal stenosis at L3-L4 through L5-S1. 3. L5-S1 left paracentral disc protrusion contributing to moderate left lateral recess stenosis likely impinging the transiting left S1 nerve root. 4. Moderate bilateral L4 neural foraminal stenosis. Mild neuroforaminal stenosis elsewhere. Electronically signed by: Edouard Ann MD 07/29/2018 11:18 PM CDT
== END ==
LOC: MRI 10:00
PROVIDERS: ATTEND Psychiatry & Neurology Pain Medicine
DX: M47.816 Spondylosis without myelopathy or radiculopathy, lumbar region (principal); M51.26 Other intervertebral disc displacement, lumbar region; M47.896 Other spondylosis, lumbar region; M48.061 Spinal stenosis, lumbar region without neurogenic claudication; M54.2 Cervicalgia; E07.9 Disorder of thyroid, unspecified

== ENCOUNTER 2018-08-13 16:10 | Emergency (ER) | payer MEDICARE, MEDICAID ==
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
--- NOTE | 2018-08-13 17:43 | RAD ---
EXAM DESCRIPTION: Chest,1 View CLINICAL HISTORY: SOB COMPARISON: 25 April 2018 TECHNIQUE: AP portable chest FINDINGS: Cardiomegaly is evident without evidence of heart failure. The exam suggests a left retrocardiac infiltrate. There could be a small left pleural effusion. Interval improvement in aeration of the right lung base is noted. IMPRESSION: 1. Cardiomegaly is observed without evidence of congestive heart tear. 2. There is a possible left retrocardiac infiltrate. Electronically signed by: Triston Haas MD 08/13/2018 5:40 PM CDT
[2018-08-13] MEDS: SODIUM CHLORIDE 0.9% 1000ML 1,000 ML IVS ONE (18:17)
[2018-08-13 18:28] VITALS: O2SAT 96
[2018-08-13 19:34] VITALS: BP 173/91; TEMP 99.1
== END 2018-08-13 19:39 | disposition home or self-care (01) ==
LOC: ER 16:10
DX: J44.1 Chronic obstructive pulmonary disease with (acute) exacerbation (principal); E87.1 Hypo-osmolality and hyponatremia; E86.0 Dehydration; N17.9 Acute kidney failure, unspecified; F32.9 Major depressive disorder, single episode, unspecified; I50.9 Heart failure, unspecified; I11.0 Hypertensive heart disease with heart failure; E11.9 Type 2 diabetes mellitus without complications; K21.9 Gastro-esophageal reflux disease without esophagitis; Z86.19 Personal history of other infectious and parasitic diseases; Z87.891 Personal history of nicotine dependence; Z79.4 Long term (current) use of insulin; Z79.899 Other long term (current) drug therapy; Z79.82 Long term (current) use of aspirin; Z88.8 Allergy status to other drugs, medicaments and biological substances
CPT/HCPCS: 36415; 71045; 80053; 83880; 85025; J7030

== ENCOUNTER 2018-11-02 19:18 | Inpatient (IN) | payer MEDICARE, MEDICAID ==
[2018-11-02] MEDS ORDERED: IPRATROPIUM/ALBUTEROL 3 ML VIAL NEB ONE (19:23)
[2018-11-02] MEDS ORDERED: ALPRAZolam 0.25 MG TAB PO ONE (19:23)
[2018-11-02] MEDS ORDERED: ALPRAZolam 0.5 MG TAB ONE (19:40)
[2018-11-02] MEDS ORDERED: SOD CHL 3% *HYPERTONIC* 500ML 160 ML IVS ONE (20:04)
[2018-11-02] MEDS ORDERED: MAGNESIUM SULFATE PREMIX 2GM 2 GM in PREMIX BAG 1 BAG IVPB ONE (20:04)
--- NOTE | 2018-11-02 20:17 | RAD ---
EXAM DESCRIPTION: Abdomen Series CLINICAL HISTORY: 58 years Female, sob, abd swelling COMPARISON: Chest x-ray August 13, 2018 FINDINGS: There is opacity in the left lower lung zone. There is suggestion of a small left pleural effusion. No pneumothorax. Cardiac silhouette appears mildly enlarged. Bowel gas pattern appears nonobstructive. No evidence of bowel dilatation or significant air-fluid levels. Degenerative changes of the spine noted. IMPRESSION: 1. Left basal pulmonary opacity may represent atelectasis versus infiltrate. 2. Small left pleural effusion. 3. Unremarkable bowel gas pattern. Electronically signed by: Ga Gregorio MD 11/02/2018 8:15 PM CDT
[2018-11-02] MEDS ORDERED: MAGNESIUM SULFATE PREMIX 2GM 50 ML IVPB ONE (20:23)
[2018-11-02] MEDS ORDERED: CIPROFLOXACIN 500 MG TAB PO ONE (20:40)
[2018-11-02] MEDS ORDERED: cefTRIAXone SODIUM 1 GM in SODIUM CHL 0.9% 50ML MIN-BAG+ 50 ML IVPB ONE (20:40)
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
--- NOTE | 2018-11-02 21:33 | HP ---
SUPERVISING PHYSICIAN: Love Ivey MD CHIEF COMPLAINT: Abdominal pain and left sided lung pressure. HISTORY OF PRESENT ILLNESS: This is a 58-year-old female patient who presented to the Emergency Room due to shortness of breath that had been going on for the past 2 to 3 days. She also had some increased weakness. She said in June she had fluid on her lungs which required her primary care physician, Dr. Gtz, to remove 2 liters of fluid from that lung. She felt the same sensation she had at that time. She denied that it was chest pain or that it radiated through to her back or that it was substernal in origin, but it felt more a fullness. She also said she felt she might also be constipated. She is disabled and lives at home. She does have a left dazbz-dyq-mnlw amputation. She is a chronic smoker and has chronic obstructive pulmonary disease. In the Emergency Room, her abdominal x-ray shows left basal pulmonary opacities that may represent atelectasis versus infiltrate, small left pleural effusion, unremarkable bowel gas pattern. Her vital signs shows temperature 97.5, heart rate 75, blood pressure 168/77, respiratory rate 24, O2 saturation 96%. Her labs showed WBC 6.6, hemoglobin 10.2, hematocrit 30.4. Sodium 120, potassium 4.7, chloride 79, BUN 28, creatinine 1.60. Her baseline creatinine is 1.1 to 1.2. Her serum osmolality is 253.7. Calcium 8.3, magnesium 1.3. BNP 331. Cardiac enzymes were negative. Urinalysis was positive for 100 of urine protein, large amount of urine blood, positive urine nitrites, moderate urine leukocyte esterase, 5 to 10 urine RBCs, greater than 100 urine WBCs and 2+ urine bacteria. She was given 3% sodium in the Emergency Room as well as magnesium sulfate. The Emergency Room physician was also unsure about her home medications as she did not have a recent copy and was not sure what she was taking. She was also given some Rocephin as well as some Cipro for the urinary tract infection. I was called for hospital admission. PAST MEDICAL HISTORY: 1. Hypertension. 2. Gastroesophageal reflux disease. 3. Anxiety and depression. 4. Diabetes mellitus on insulin therapy. 5. Chronic hyponatremia with baseline sodium of 125. 6. Chronic hypomagnesemia. 7. Chronic pleural effusions requiring thoracentesis. 8. Previous ihjws-jla-plbk amputation of the left leg. PAST SURGICAL HISTORY: 1. Tubal ligation. 2. History of tracheotomy. 3. Carpal tunnel release of the right hand. 4. Left plhkq-wku-foob amputation in August of 2015. CURRENT MEDICATIONS: Per the EMR and awaiting verification. ALLERGIES: ADHESIVE TAPE, SUMATRIPTAN. SOCIAL HISTORY: She is disabled. She lives in [place] with her significant other as well as her two granddaughters. Her primary care physician is Dr. Gtz. She currently smokes approximately 1/2 pack of cigarettes a day and has since she was a teenager. She denies any ETOH or illicit drug use. REVIEW OF SYSTEMS: GENERAL: Positive for fatigue. Negative for fever or weight changes. HEENT: Negative for sinus symptoms, ear pain, vision changes or sore throat. RESPIRATORY: Positive for shortness of breath. Negative for wheezing or coughing. See history of present illness. CARDIAC: Negative for chest pain, palpitations or tachycardia. GASTROINTESTINAL: Positive for feeling full with moderate abdominal distention. See history of present illness. GENITOURINARY: Positive for frequency. Negative for hematuria, dysuria. MUSCULOSKELETAL: Positive for chronic pain, but negative for any acute pain. SKIN: Positive for an ulcer to the right lower extremity which she currently sees wound care and the wound was dressed today by her wound care nurses. NEUROLOGIC: Positive for chronic anxiety. Negative for headache, dizziness or seizures. PHYSICAL EXAMINATION: VITAL SIGNS: Temperature 97.9. Heart rate 54. Blood pressure 155/75. Respiratory rate 22. O2 saturation 97% on room air. GENERAL: This is an obese 58-year-old female patient sitting up in her hospital bed. She is in no acute distress. HEENT: Normocephalic, atraumatic. Pupils are equal and reactive. Oropharynx is clear. NECK: Supple without mass. RESPIRATORY: Diminished bilaterally with a few scattered rhonchi. The patient does get slightly tachypneic at times, but does not appear to be in respiratory distress. CHEST: There is equal rise and fall of the chest with inspiration and expiration. CARDIOVASCULAR: Regular rate and rhythm. GASTROINTESTINAL: Abdomen is soft, nondistended, nontender. Bowel sounds are positive. EXTREMITIES: She has a hpiqf-kja-lorz amputation on the left. She has some mild edema to the right lower extremity. She does have a dressing to the right foot that is dry and intact. NEUROLOGIC: Awake, alert and oriented times three. LABORATORY: Labs and films are as per history of present illness. IMPRESSION: 1. Hyponatremia and hypomagnesemia, chronic versus acute. Her baseline sodium is 125, today it is 120. 2. Urinary tract infection with culture pending. 3. Shortness of breath with concerns for upper respiratory infection in a chronic smoker with chronic obstructive pulmonary disease. 4. Diabetes mellitus, type 2, on insulin therapy. 5. Hypertension on medications. 6. History of pleural effusion requiring thoracentesis in June of 2018. 7. Chronic obstructive pulmonary disease in a chronic smoker. 8. Gastroesophageal reflux disease. 9. Depression and anxiety. 10. Tobacco abuse. PLAN: I have admitted the patient to the hospital. I have given her some gentle IV fluids to try to correct the sodium. I have discontinued the 3% sodium. We will also put her on fluid restrictions of 1500 mL in 24 hours. I will recheck her lab in the morning. I am putting her on breathing treatments. For some reason, there was no chest x-ray done and so I will repeat that in the morning and decide at that time if we need treat her for her chronic obstructive pulmonary disease exacerbation. I have also started on blood sugar checks at a.c. and h.s. with sliding scale insulin therapy. Her medications will be restarted once they are verified. Her home health is [facility] out of [place]. I have also done some tobacco cessation teaching. I have put her on a proton pump inhibitor for ulcer prophylaxis as well as she is on Eliquis for DVT prophylaxis. I started her pain medications. I will to monitor the patient closely and follow as needed. [facility][id number] [facility]
[2018-11-02] MEDS ORDERED: cefTRIAXone SODIUM 1 GM VIAL ONE (21:40)
[2018-11-02] MEDS ORDERED: SODIUM CHL 0.9% 50ML MIN-BAG+ 50 ML IVPB ONE (21:41)
[2018-11-02] MEDS ORDERED: ONDANSETRON INJ 4 MG/2 ML VIAL IV PRN (21:59)
[2018-11-02] MEDS ORDERED: ACETAMINOPHEN 325 MG TAB PO PRN (21:59)
[2018-11-02] MEDS ORDERED: SODIUM CHLORIDE 0.9% (FLUSH) 10 ML SYG IV PRN (21:59)
[2018-11-02] MEDS ORDERED: IV SET AND CAP CHANGE INJ INJ SCH (22:00)
[2018-11-02] MEDS ORDERED: GLUCAGON INJ 1 MG VIAL SUBCU PRN (22:06)
[2018-11-02] MEDS ORDERED: DEXTROSE 50% 25 GM/50 ML SYG IV PRN (22:06)
[2018-11-02] MEDS ORDERED: tiZANidine 4 MG TAB PO PRN (22:06)
[2018-11-02] MEDS ORDERED: INSULIN DETEMIR 100 UNITS/ML PEN SUBCU ONE (22:06)
[2018-11-02] MEDS ORDERED: CARVEDILOL 12.5 MG TAB PO ONE (22:08)
[2018-11-02] MEDS ORDERED: GABAPENTIN 300 MG CAP PO ONE (22:09)
[2018-11-02] MEDS ORDERED: APIXABAN 2.5 MG TAB PO ONE (22:10)
[2018-11-02] MEDS ORDERED: ALBUTEROL SULFATE 2.5 MG/3 ML VIAL NEB PRN (22:22)
[2018-11-02] MEDS ORDERED: GABAPENTIN 300 MG CAP ONE (22:43)
[2018-11-02] MEDS ORDERED: CARVEDILOL 12.5 MG TAB ONE (22:43)
[2018-11-02] MEDS: SODIUM CHLORIDE 0.9% 1000ML 1,000 ML IVS PRN (22:51)
[2018-11-03] MEDS: PANTOPRAZOLE SODIUM TAB 40 MG PO SCH (06:25)
--- NOTE | 2018-11-03 07:03 | RAD ---
EXAM DESCRIPTION: Chest,1 View CLINICAL HISTORY: sob COMPARISON: August 13, 2018 FINDINGS: The cardiac silhouette is enlarged but stable from the prior study. Mediastinal contours are otherwise unremarkable. For visualization of the left hemidiaphragm is likely related to superimposed mediastinal structures and underpenetrated technique, less likely left basilar consolidation and/or left sided effusion the right lung and right pleural space are unremarkable. Question mild central pulmonary vascular congestion. There is no pneumothorax or acute fracture. IMPRESSION: Stable cardiomegaly with probable mild central pulmonary vascular congestion. Abnormal appearance of the left lung base likely related to underpenetrated technique and superimposed mediastinal structures rather than left basilar consolidation and/or small left-sided effusion. If symptoms persist or worsen, PA and lateral chest radiograph may be helpful for further evaluation of the left lung base. Electronically signed by: Peter Keller MD 11/03/2018 7:01 AM CDT
[2018-11-03] MEDS ORDERED: INSULIN PROTAMINE/LISPRO 75/25 100 UNITS/ML PEN SUBCU ONE (07:31)
[2018-11-03] MEDS: INSULIN LISPRO 100 UNITS/ML PEN SUBCU SCH ×4 (07:35→20:53)
[2018-11-03] MEDS: SODIUM CHLORIDE 0.9% 1000ML 1,000 ML IVS PRN ×2 (07:57→19:53)
[2018-11-03] MEDS: ALBUTEROL SULFATE 2.5 MG/3 ML VIAL NEB SCH ×4 (08:25→20:25)
[2018-11-03] MEDS: CIPROFLOXACIN 250 MG TAB PO SCH ×2 (09:07→20:47)
[2018-11-03] MEDS: HYDROcodone 10MG/APAP 325MG 1 EA TAB PO SCH ×3 (09:08→20:47)
[2018-11-03] MEDS: FUROSEMIDE INJ 40 MG/4 ML VIAL IV SCH (09:08)
[2018-11-03] MEDS: SODIUM CHLORIDE 0.9% (FLUSH) 10 ML SYG IV SCH ×2 (09:09→20:48)
[2018-11-03] MEDS ORDERED: methylPREDNISolone SODIUM SUC 125 MG/2 ML VIAL IV ONE (12:15)
[2018-11-03] MEDS ORDERED: cefTRIAXone SODIUM 1 GM in SODIUM CHL 0.9% 50ML MIN-BAG+ 50 ML IVPB SCH ×2 (12:30→20:00)
[2018-11-03] MEDS ORDERED: AZITHROMYCIN IV 500 MG in SODIUM CHLORIDE 0.9% 250ML 250 ML IVPB SCH (13:00)
[2018-11-03] MEDS: CARVEDILOL 12.5 MG TAB PO SCH ×2 (14:22→20:47)
[2018-11-03] MEDS: APIXABAN 2.5 MG TAB PO SCH ×2 (14:22→20:47)
[2018-11-03] MEDS ORDERED: AZITHROMYCIN IV 500 MG VIAL IVPB ONE (14:24)
[2018-11-03] MEDS ORDERED: methylPREDNISolone SODIUM SUC 40 MG/ML VIAL ONE (14:24)
[2018-11-03] MEDS ORDERED: SODIUM CHLORIDE 0.9% 250ML 250 ML ONE (14:24)
[2018-11-03] MEDS: GABAPENTIN 300 MG CAP PO SCH ×2 (15:06→20:47)
--- NOTE | 2018-11-03 15:13 | PN ---
SUPERVISING PHYSICIAN: Andi Jacobo MD DATE: 11/03/18 SUBJECTIVE: The patient is sitting up in her bed. She continues to complain of some shortness of breath. She feels like she is wheezing more today than she was yesterday although she does feel stronger and she does not feel like she has that fullness in her chest. OBJECTIVE: VITAL SIGNS: Temperature 98.8. Heart rate 52. Blood pressure 136/82. Respiratory rate 20. It has been as high 22. O2 saturation 96% on room air. RESPIRATORY: Expiratory wheezing throughout both apices and somewhat diminished at the bases. She gets tachypneic when speaking and most speak in short phrases. CARDIAC: Bradycardic rate, regular rhythm. GASTROINTESTINAL: Abdomen is soft, nondistended, nontender. Bowel sounds are positive. NEUROLOGIC: Awake, alert and oriented times three. LABORATORY: WBCs 5.6, hemoglobin 9.8, hematocrit 29.5, platelet count 98. She does have a left shift on differential. Sodium 120, potassium 3.9, chloride 81, carbon dioxide 26, BUN 30, creatinine 1.44, glucose 120, calcium 8, magnesium 1.6. Urine culture pending. Chest x-ray shows stable cardiomegaly with probably mild central pulmonary vascular congestion, abnormal appearance of the left lung base likely related to under-penetrated technique and superimposed mediastinal structures rather than a left basilar consolidation and/or small left sided effusion. If symptoms persist, PA and lateral radiograph may be helpful for further evaluation of the left lung base. All other labs and films have been reviewed via the EMR. ASSESSMENT: 1. Hyponatremia and hypomagnesemia, chronic versus acute. Her baseline sodium is 125, today it is 120 in spite of normal saline. 2. Urinary tract infection with culture pending. 3. Acute on chronic kidney injury. Her baseline creatinine is 1.1 to 1.2. On admission, it was 1.66, now it is 1.4. 4. Acute exacerbation of chronic obstructive pulmonary disease with concerns for community acquired pneumonia. 5. Diabetes mellitus, type 2, on insulin therapy. 6. Hypertension on medications. 7. History of pleural effusion requiring thoracentesis in June of 2018. 8. Chronic obstructive pulmonary disease in a chronic smoker. 8. Gastroesophageal reflux disease. 10. Depression and anxiety. 11. Tobacco abuse. PLAN: We will continue present supportive care. I will continue with her IV fluids. Her home medications are still not verified. We can ask [facility] to help with her medication list. I have given her some magnesium supplementation. I have also continued her Rocephin for her urinary tract infection. I have also added some Solu-Medrol and Zithromax due to her exacerbation of COPD. I have ordered lab and PA and lateral chest x-ray in the morning. We will continue to monitor the patient closely and follow as needed. #[id number] [facility]
[2018-11-03] MEDS: methylPREDNISolone SODIUM SUC 125 MG/2 ML VIAL IV SCH (18:45)
[2018-11-03] MEDS ORDERED: SODIUM CHL 0.9% 50ML MIN-BAG+ 50 ML IVPB ONE (19:47)
[2018-11-03] MEDS ORDERED: cefTRIAXone SODIUM 1 GM VIAL ONE (19:47)
[2018-11-03] MEDS: guaiFENesin ER TAB 600 MG TAB PO SCH (20:47)
[2018-11-03] MEDS ORDERED: CARVEDILOL 12.5 MG TAB PO ONE (22:08)
[2018-11-03] MEDS ORDERED: GABAPENTIN 300 MG CAP PO ONE (22:09)
[2018-11-04] MEDS: methylPREDNISolone SODIUM SUC 125 MG/2 ML VIAL IV SCH ×2 (00:05→06:12)
[2018-11-04] MEDS: HYDROcodone 10MG/APAP 325MG 1 EA TAB PO SCH ×2 (02:53→09:32)
[2018-11-04] MEDS: SODIUM CHLORIDE 0.9% 1000ML 1,000 ML IVS PRN (04:15)
[2018-11-04] MEDS: PANTOPRAZOLE SODIUM TAB 40 MG PO SCH (06:12)
[2018-11-04] MEDS: INSULIN LISPRO 100 UNITS/ML PEN SUBCU SCH ×2 (06:34→12:17)
[2018-11-04] MEDS: ALBUTEROL SULFATE 2.5 MG/3 ML VIAL NEB SCH ×2 (07:33→12:45)
[2018-11-04] MEDS ORDERED: INSULIN LISPRO 100 UNITS/ML PEN SUBCU ONE ×2 (08:14→11:30)
[2018-11-04] MEDS: CIPROFLOXACIN 250 MG TAB PO SCH (09:31)
[2018-11-04] MEDS: GABAPENTIN 300 MG CAP PO SCH (09:31)
[2018-11-04] MEDS: guaiFENesin ER TAB 600 MG TAB PO SCH (09:31)
[2018-11-04] MEDS: CARVEDILOL 12.5 MG TAB PO SCH (09:31)
[2018-11-04] MEDS: SODIUM CHLORIDE 0.9% (FLUSH) 10 ML SYG IV SCH (09:32)
[2018-11-04] MEDS: APIXABAN 2.5 MG TAB PO SCH (09:32)
[2018-11-04] MEDS: FUROSEMIDE INJ 40 MG/4 ML VIAL IV SCH (09:33)
[2018-11-04] MEDS ORDERED: SODIUM CHL 0.9% 50ML MIN-BAG+ 50 ML IVPB ONE (09:42)
[2018-11-04] MEDS ORDERED: cefTRIAXone SODIUM 1 GM in SODIUM CHL 0.9% 50ML MIN-BAG+ 50 ML IVPB ONE (09:43)
[2018-11-04] MEDS ORDERED: cefTRIAXone SODIUM 1 GM VIAL ONE (09:43)
[2018-11-04] MEDS ORDERED: SODIUM CHLORIDE 0.9% 250ML 250 ML ONE (10:41)
[2018-11-04] MEDS ORDERED: AZITHROMYCIN IV 500 MG VIAL IVPB ONE (10:42)
[2018-11-04] MEDS ORDERED: AZITHROMYCIN IV 500 MG in SODIUM CHLORIDE 0.9% 250ML 250 ML IVPB ONE (11:00)
[2018-11-04] MEDS ORDERED: methylPREDNISolone SODIUM SUC 40 MG/ML VIAL IV ONE (12:00)
[2018-11-04 12:45] VITALS: O2SAT 99
[2018-11-04 13:49] VITALS: BP 174/81; TEMP 98.3
--- NOTE | 2018-11-04 21:59 | DS ---
SUPERVISING PHYSICIAN: Andi Jacobo M.D. DISCHARGE DIAGNOSIS: 1. Hyponatremia and hypomagnesemia, chronic versus acute. Her baseline sodium is 125. Today it is 122 in spite of giving normal saline and fluid restrictions. The patient says her baseline is in the low 120s. 2. Urinary tract infection with culture pending. 3. Acute on chronic kidney injury. Her baseline creatinine is 1.1 to 1.2. On admission, it was 1.66, now it is 1.39. 4. Acute exacerbation of chronic obstructive pulmonary disease with concerns for community acquired pneumonia in a chronic smoker. 5. Diabetes mellitus, type 2, on insulin therapy. 6. Thrombocytopenia. 7. Hypertension on medications. 8. History of pleural effusion requiring thoracentesis in June of 2018. 9. Chronic obstructive pulmonary disease in a chronic smoker. 10. Gastroesophageal reflux disease. 11. Depression and anxiety. 12. Tobacco abuse. HISTORY OF PRESENT ILLNESS: This is a 58-year-old female patient who presented to the Emergency Room due to shortness of breath that had been going on for 2 to 3 days prior to admission. She also had increased weakness. She said that in June she had some fluid on her lungs and her primary care physician, Dr. Jevon Gtz, removed 2 liters of fluid. On admission, she felt the same sensation she had at that time. She denied that it was chest pain or that it radiated through to her back or that it was substernal in origin, but it felt more like a fullness. She also said that it was in her lungs and she may be constipated. She is disabled and lives at home. She has a left lfxul-hdf-cufb amputation. She is a chronic smoker and has chronic obstructive pulmonary disease. In the E. R., her abdominal x-ray showed left basilar pulmonary opacities that may represent atelectasis versus infiltrate, small left pleural effusion. Unremarkable bowel gas pattern. Vital signs showed temperature 97.5, heart rate 75, blood pressure 168/77, respiratory rate 24, O2 sat 96%. Laboratory showed WBCs of 6.6, hemoglobin 10.2, hematocrit 30.4, sodium 120, potassium 4.7, chloride 79, BUN 28, creatinine 1.6. Baseline creatinine is 1.1 to 1.2. Serum osmolality was 253.7, calcium 8.3, magnesium 1.3. BNP 331. Cardiac enzymes were negative. Urinalysis was positive for 100 of urine protein, large amount of urine blood, positive urine nitrites, moderate urine leukocyte esterase, 5 to 10 urine RBCs, greater than 100 urine WBCs and 2+ urine bacteria. In the Emergency Room, she was given 3% hypertonic saline as well as some magnesium sulfate. We had a difficult time verifying her home medications as she did not know what she was on. Initially we thought that [facility] was her home health provider, but found at a later time that it was [facility]. It took some time to get those verified. She was given some Rocephin as well as some Cipro in the Emergency Room and she was admitted to the hospital. HOSPITAL COURSE: In addition to the Rocephin, we added azithromycin. The ciprofloxacin was discontinued. She also received some IV steroids as she had quite a bit of expiratory wheezing throughout all lung bautista. Her Solu-Medrol was tapered down and she had less complaints of shortness of breath. She was also given some IV fluids of normal saline to help correct her sodium and put on fluid restrictions, although her sodium only came up to 122. The patient said that her baseline sodium is about 122. She felt improved that she could go home with close followup with Dr. Gtz. She was also wanted to go to her appointment for her prosthesis tomorrow. She did have an elevation in her blood sugars today that were in the 400s most likely due to steroid therapy. She received several doses of Humalog insulin and her blood sugars were brought down to about 300. She will be discharged home to be followup with Dr. Jevon Gtz in close followup. LABORATORY: Her WBCs remained around 6.6. Hemoglobin and hematocrit were stable at 10.7 and 32.7. Sodium 122, potassium 5.3, chloride 86, BUN 32, creatinine 1.39. Serum osmolality improved to 273.7 with calcium 8.1 and magnesium 1.8. Urine culture is pending. RADIOLOGY: Her followup chest x-ray showed stable cardiomegaly with probable mild central pulmonary vascular congestion, abnormal appearance of the left lung base likely related to under penetrated technique and superimposed mediastinal structures rather than left basilar consolidation and/or small left sided effusion. Recommended PA and lateral if symptoms persist. DISCHARGE PLAN: The patient will be discharged home in stable condition. She is to resume her previous medications and her previous activity. She is to get a followup appointment with Dr. Jevon Gtz within the next 1 to 2 weeks. In addition to her regular medication, she is to take Guaifenesin twice daily as well as I have ordered azithromycin, Cefdinir and a prednisone taper. She is to call Dr. Gtz's office or return to the hospital for any problems or complications. The home medications listed are to be noted that were not completely verified, although she did receive her Furosemide, Gabapentin, sliding scale insulin, Hydrocodone, her PPI, Carvedilol and Eliquis as well as her breathing treatments. The home medications we have listed are: 1. Gabapentin. 2. Lorazepam. 3. Lisinopril. 4. Abilify. 5. Furosemide. 6. NovoLog insulin. 7. Tizanidine. 8. Simvastatin. 9. Hydrocodone. 10. Aspirin. 11. Acetaminophen. 12. Nystatin. 13. Ibuprofen. 14. Nexium. 15. Samsca. 16. Carvedilol. 17. Demadex. 18. Pletal. 19. Actigall. 20. Fentanyl patch. 21. Levemir. 22. Mirtazapine. 23. Fluticasone nasal. 24. Eliquis. 25. Duloxetine. 26. Albuterol nebs. 27. Azithromycin. 28. Prednisone. 29. Cefdinir. [facility][id number] [facility]
== END 2018-11-04 14:45 | disposition home health service (06) | DRG 640 ==
LOC: ER 19:18 → OBSVTOIN 21:31 → MS 21:31
PROVIDERS: ADMIT Nurse Practitioner Acute Care; ATTEND Nurse Practitioner Acute Care
DX: E87.1 Hypo-osmolality and hyponatremia (principal); J18.9 Pneumonia, unspecified organism; N17.9 Acute kidney failure, unspecified; N39.0 Urinary tract infection, site not specified; J44.1 Chronic obstructive pulmonary disease with (acute) exacerbation; J90 Pleural effusion, not elsewhere classified; L97.919 Non-pressure chronic ulcer of unspecified part of right lower leg with unspecified severity; E83.42 Hypomagnesemia; N18.9 Chronic kidney disease, unspecified; F17.210 Nicotine dependence, cigarettes, uncomplicated; E11.22 Type 2 diabetes mellitus with diabetic chronic kidney disease; D69.6 Thrombocytopenia, unspecified; I12.9 Hypertensive chronic kidney disease with stage 1 through stage 4 chronic kidney disease, or unspecified chronic kidney disease; K21.9 Gastro-esophageal reflux disease without esophagitis; F32.9 Major depressive disorder, single episode, unspecified; F41.9 Anxiety disorder, unspecified; Z89.512 Acquired absence of left leg below knee; Z88.8 Allergy status to other drugs, medicaments and biological substances; Z79.4 Long term (current) use of insulin; Z79.82 Long term (current) use of aspirin; Z79.891 Long term (current) use of opiate analgesic; Z79.1 Long term (current) use of non-steroidal anti-inflammatories (NSAID); Z79.52 Long term (current) use of systemic steroids; Z79.899 Other long term (current) drug therapy

== ENCOUNTER → 2019-01-26 | Outpatient (CLI) | payer MEDICARE, MEDICAID | LOC: HHH 11:15 | PROVIDERS: ATTEND Emergency Medicine | DX: I10 Essential (primary) hypertension (principal); E11.9 Type 2 diabetes mellitus without complications ==

== ENCOUNTER → 2019-02-13 | Outpatient (CLI) | payer MEDICARE, MEDICAID | LOC: HHH 09:31 | PROVIDERS: ATTEND Emergency Medicine | DX: E87.1 Hypo-osmolality and hyponatremia (principal); R53.1 Weakness ==

== ENCOUNTER → 2019-03-13 | Outpatient (CLI) | payer MEDICARE, MEDICAID | LOC: HHH 11:19 | PROVIDERS: ATTEND Emergency Medicine | DX: E87.1 Hypo-osmolality and hyponatremia (principal) ==

== ENCOUNTER → 2019-03-20 | Outpatient (CLI) | payer MEDICARE, MEDICAID | LOC: HHH 09:02 | PROVIDERS: ATTEND Emergency Medicine | DX: E87.1 Hypo-osmolality and hyponatremia (principal) ==

== ENCOUNTER → 2019-03-23 | Outpatient (CLI) | payer MEDICARE, MEDICAID | LOC: HHH 08:55 | PROVIDERS: ATTEND Emergency Medicine | DX: E87.1 Hypo-osmolality and hyponatremia (principal) ==

== ENCOUNTER → 2019-03-27 | Outpatient (CLI) | payer MEDICARE, MEDICAID | LOC: HHH 11:10 | PROVIDERS: ATTEND Emergency Medicine | DX: I13.0 Hypertensive heart and chronic kidney disease with heart failure and stage 1 through stage 4 chronic kidney disease, or unspecified chronic kidney disease (principal); N18.9 Chronic kidney disease, unspecified; E11.22 Type 2 diabetes mellitus with diabetic chronic kidney disease ==

== ENCOUNTER → 2019-04-03 | Outpatient (CLI) | payer MEDICARE, MEDICAID | END | disposition home or self-care (01) | LOC: HHH 09:33 | PROVIDERS: ATTEND Emergency Medicine | DX: I13.0 Hypertensive heart and chronic kidney disease with heart failure and stage 1 through stage 4 chronic kidney disease, or unspecified chronic kidney disease (principal); I50.9 Heart failure, unspecified ==

== ENCOUNTER → 2019-04-10 | Outpatient (CLI) | payer MEDICARE, MEDICAID | LOC: HHH 12:25 | PROVIDERS: ATTEND Emergency Medicine | DX: I13.0 Hypertensive heart and chronic kidney disease with heart failure and stage 1 through stage 4 chronic kidney disease, or unspecified chronic kidney disease (principal); E11.22 Type 2 diabetes mellitus with diabetic chronic kidney disease ==

== ENCOUNTER → 2019-04-17 | Outpatient (CLI) | payer MEDICARE, MEDICAID | LOC: HHH 09:23 | PROVIDERS: ATTEND Emergency Medicine | DX: I13.0 Hypertensive heart and chronic kidney disease with heart failure and stage 1 through stage 4 chronic kidney disease, or unspecified chronic kidney disease (principal); E11.22 Type 2 diabetes mellitus with diabetic chronic kidney disease ==

== ENCOUNTER → 2019-04-20 | Outpatient (CLI) | payer MEDICARE, MEDICAID | LOC: HHH 10:48 | PROVIDERS: ATTEND Emergency Medicine | DX: E87.1 Hypo-osmolality and hyponatremia (principal) ==

== ENCOUNTER → 2019-05-01 | Outpatient (CLI) | payer MEDICARE, MEDICAID | LOC: HHH 09:41 | PROVIDERS: ATTEND Emergency Medicine | DX: I13.0 Hypertensive heart and chronic kidney disease with heart failure and stage 1 through stage 4 chronic kidney disease, or unspecified chronic kidney disease (principal); E11.22 Type 2 diabetes mellitus with diabetic chronic kidney disease ==

== ENCOUNTER → 2019-05-08 | Outpatient (CLI) | payer MEDICARE, MEDICAID | LOC: HHH 10:30 | PROVIDERS: ATTEND Emergency Medicine | DX: E87.1 Hypo-osmolality and hyponatremia (principal) ==

== ENCOUNTER → 2019-05-14 | Outpatient (CLI) | payer MEDICARE, MEDICAID | LOC: HHH 13:35 | PROVIDERS: ATTEND Emergency Medicine | DX: I13.0 Hypertensive heart and chronic kidney disease with heart failure and stage 1 through stage 4 chronic kidney disease, or unspecified chronic kidney disease (principal); E11.22 Type 2 diabetes mellitus with diabetic chronic kidney disease ==

== ENCOUNTER → 2019-05-22 | Outpatient (CLI) | payer MEDICARE, MEDICAID | LOC: HHH 09:37 | PROVIDERS: ATTEND Emergency Medicine | DX: I13.0 Hypertensive heart and chronic kidney disease with heart failure and stage 1 through stage 4 chronic kidney disease, or unspecified chronic kidney disease (principal); N18.9 Chronic kidney disease, unspecified; E11.22 Type 2 diabetes mellitus with diabetic chronic kidney disease ==

== ENCOUNTER → 2019-06-05 | Outpatient (CLI) | payer MEDICARE, MEDICAID | LOC: HHH 11:19 | PROVIDERS: ATTEND Emergency Medicine | DX: E87.1 Hypo-osmolality and hyponatremia (principal) ==

== ENCOUNTER → 2019-06-18 | Outpatient (CLI) | payer MEDICARE, MEDICAID | LOC: HHH 13:43 | PROVIDERS: ATTEND Emergency Medicine | DX: I13.0 Hypertensive heart and chronic kidney disease with heart failure and stage 1 through stage 4 chronic kidney disease, or unspecified chronic kidney disease (principal); N18.9 Chronic kidney disease, unspecified; E11.22 Type 2 diabetes mellitus with diabetic chronic kidney disease ==

== ENCOUNTER 2019-06-19 05:22 | Emergency (ER) | payer MEDICARE, MEDICAID ==
[2019-06-19] MEDS ORDERED: ALUM & MAG HYDROX-SIMETHICONE 30 ML, LIDOCAINE VISCOUS 2% 15 ML PO ONE ×2 (05:42)
[2019-06-19] MEDS ORDERED: PROMETHAZINE HCL 25 MG TAB PO ONE (05:42)
[2019-06-19] MEDS ORDERED: ALUM & MAG HYDROX-SIMETHICONE 30 ML UD ONE (05:47)
[2019-06-19] MEDS ORDERED: LIDOCAINE HCL 2% (MOUTH-THROAT) 15 ML UD ONE (05:47)
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
[2019-06-19] MEDS ORDERED: MAGNESIUM SULFATE PREMIX 4GM 4 GM in PREMIX BAG 1 BAG IVPB ONE (06:30)
[2019-06-19] MEDS ORDERED: SODIUM CHLORIDE 0.9% 1000ML 1,000 ML IVS ONE (06:30)
[2019-06-19] MEDS ORDERED: SUCRALFATE 1 GM/10 ML 1 GM UD PO ONE (06:32)
[2019-06-19] MEDS ORDERED: PROMETHAZINE HCL INJ 12.5 MG in SODIUM CHLORIDE 0.9% 50ML 50 ML IVPB ONE (06:32)
--- NOTE | 2019-06-19 06:32 | RAD ---
EXAM: X-ray acute abdomen series. CLINICAL DATA: 58-year-old female with diffuse upper abdominal pain TECHNICAL DATA: Three x-ray images of the chest and abdomen were performed including a PA radiograph of the chest as well as supine and upright views of the abdomen. This study was performed on 06/19/2019 at 6:03 AM. Comparison: 11/02/2018. FINDINGS: The lungs are well expanded. There is volume loss in the left lung base which may be due to a combination of pleural fluid, atelectasis or inflammatory changes. The cardiac silhouette is stable and is prominent. There is mild coarsening of the interstitial lung markings which may be related to vascular congestion or chronic interstitial lung changes. There is no pneumothorax. The bowel gas pattern is nonspecific and nonobstructive. There is no evidence of free air or significant air-fluid levels. The upright projection is limited due to underpenetration. No pathologic abdominal calcifications are identified. No focal soft tissue abnormalities are seen. IMPRESSION: 1. Volume loss in the left inferior hemithorax which may be secondary to pleural fluid, atelectasis and/or inflammatory changes. The appearance is improved when compared to the prior study. 2. Nonspecific and nonobstructive bowel gas pattern. The upright image of the abdomen is limited due to underpenetration. Electronically signed by: Amy Story DO 06/19/2019 6:30 AM [facility]
[2019-06-19] MEDS ORDERED: SODIUM CHLORIDE 0.9% 50ML 50 ML ONE (06:48)
[2019-06-19] MEDS ORDERED: PROMETHAZINE HCL INJ 25 MG/ML VIAL ONE (06:48)
[2019-06-19] MEDS ORDERED: MAGNESIUM SULFATE PREMIX 4GM 50 ML IVPB ONE (06:48)
[2019-06-19] MEDS ORDERED: HALOPERIDOL LACTATE INJ 5 MG/ML VIAL IM ONE (08:39)
[2019-06-19] MEDS ORDERED: fentaNYL CITRATE INJ 50 MCG/ML AMP IV ONE (10:31)
[2019-06-19] MEDS ORDERED: METOCLOPRAMIDE HCL INJ 10 MG/2 ML VIAL IV ONE (10:32)
--- NOTE | 2019-06-19 10:34 | US ---
EXAM DESCRIPTION: Gall Bladder: ULTRASOUND. CLINICAL HISTORY: Epigastric pain, vomiting, history of stones COMPARISON: Abdominal radiographs on the same visit. TECHNIQUE: Transabdominal scanning: Noonan-scale and Doppler modes.. Technically difficult study due to patient large body habitus. FINDINGS: Gallbladder: No stones or sludge. Echogenic region with no acoustic shadowing measures 10 mm. No fluid around the gallbladder. No wall thickening. 2.9 mm. Non-tender with transducer pressure. Common bile duct: caliber 5.2 mm within normal limits. Liver: Heterogeneously increased echogenicity; contour liver capsule smooth where seen. No fluid around the liver. Intrahepatic biliary ducts normal caliber. Doppler hepatopedal flow portal vein.. Long axis right lobe 22.2 cm. Pancreas: normal size fatty echogenicity. Duct not seen. Aorta: 12.5 mm normal caliber. Right kidney: 13.3 cm long axis with cortical thickness 12 mm. Normal cortical echogenicity. No echogenic stones or hydronephrosis. Minimal cortical lobulation. IMPRESSION: Gallbladder with no stones or sludge. Probable 1 cm polyp. No fluid around the wall and nontender. Enlarged fatty liver. Normal intrahepatic and extrahepatic ducts. Normal caliber of the abdominal aorta. Lobulated capsule of the kidney with minimal cortical thinning but otherwise negative. No ascites. Pancreas unremarkable. Electronically signed by: Supa Pan MD 06/19/2019 10:33 AM [employer] DIRECT[employer]
[2019-06-19] MEDS ORDERED: cefTRIAXone SODIUM 1 GM in SODIUM CHL 0.9% 50ML MIN-BAG+ 50 ML IVPB ONE (10:45)
[2019-06-19] MEDS ORDERED: cefTRIAXone SODIUM 1 GM VIAL ONE (10:49)
[2019-06-19] MEDS ORDERED: SODIUM CHL 0.9% 50ML MIN-BAG+ 50 ML IVPB ONE (10:50)
[2019-06-19 11:55] VITALS: BP 157/74; TEMP 97.4; O2SAT 96
== END 2019-06-19 11:35 | disposition home or self-care (01) ==
LOC: ER 05:22
DX: E87.1 Hypo-osmolality and hyponatremia (principal); E83.42 Hypomagnesemia; R11.2 Nausea with vomiting, unspecified; N39.0 Urinary tract infection, site not specified; E66.01 Morbid (severe) obesity due to excess calories; E11.40 Type 2 diabetes mellitus with diabetic neuropathy, unspecified; F32.9 Major depressive disorder, single episode, unspecified; J44.9 Chronic obstructive pulmonary disease, unspecified; I48.91 Unspecified atrial fibrillation; I50.9 Heart failure, unspecified; K21.9 Gastro-esophageal reflux disease without esophagitis; I10 Essential (primary) hypertension; Z86.73 Personal history of transient ischemic attack (TIA), and cerebral infarction without residual deficits; Z86.19 Personal history of other infectious and parasitic diseases; Z87.891 Personal history of nicotine dependence; Z79.899 Other long term (current) drug therapy; Z79.01 Long term (current) use of anticoagulants; Z79.4 Long term (current) use of insulin; Z79.82 Long term (current) use of aspirin; Z88.8 Allergy status to other drugs, medicaments and biological substances; Z68.42 Body mass index [BMI] 45.0-49.9, adult
CPT/HCPCS: 36415; 74019; 76705; 80048; 80053; 81001; 82150; 83605; 83690; 83735; 85025; 87086; 87502; A4216; J0696; J1630; J2550; J2765; J3010; J3475; J7030; J7050; Q0169

== ENCOUNTER → 2019-07-03 | Outpatient (CLI) | payer MEDICARE, MEDICAID | LOC: HHH 12:46 | PROVIDERS: ATTEND Emergency Medicine | DX: E87.1 Hypo-osmolality and hyponatremia (principal) ==

== ENCOUNTER → 2019-07-24 | Outpatient (CLI) | payer MEDICARE, MEDICAID | DX: I13.0 Hypertensive heart and chronic kidney disease with heart failure and stage 1 through stage 4 chronic kidney disease, or unspecified chronic kidney disease (principal); E11.22 Type 2 diabetes mellitus with diabetic chronic kidney disease ==

== ENCOUNTER → 2019-07-31 | Outpatient (CLI) | payer MEDICARE, MEDICAID | LOC: HHH 10:19 | PROVIDERS: ATTEND Emergency Medicine | DX: E87.1 Hypo-osmolality and hyponatremia (principal) ==

== ENCOUNTER → 2019-08-07 | Outpatient (CLI) | payer MEDICARE, MEDICAID | LOC: HHH 10:19 | PROVIDERS: ATTEND Emergency Medicine | DX: E87.1 Hypo-osmolality and hyponatremia (principal) ==

== ENCOUNTER → 2019-08-21 | Outpatient (CLI) | payer MEDICARE, MEDICAID | LOC: HHH 11:31 | PROVIDERS: ATTEND Emergency Medicine | DX: E87.1 Hypo-osmolality and hyponatremia (principal) ==

== ENCOUNTER 2019-08-27 07:00 | Day surgery (SDC) | payer MEDICARE, MEDICAID ==
[~2019-08-27 07:00] MED LIST: LIDOCAINE 1% 10 ML VIAL INJ ONE; MAGNESIUM SULFATE INJ 1 GM/2 ML VIAL ONE; ONDANSETRON INJ 4 MG/2 ML VIAL ONE; PROPOFOL 200 MG/20 ML VIAL IV ONE; SODIUM CHLORIDE 0.9% 50 ML VIAL ONE; raNITIdine HCL INJ 25 MG/ML VIAL ONE
[2019-08-27] MEDS ORDERED: LACTATED RINGERS 1,000 ML ONE (07:02)
[2019-08-27] MEDS ORDERED: BUPIVACAINE 0.5% W/EPI 30 ML VIAL INJ ONE (07:31)
[2019-08-27] MEDS ORDERED: INSULIN LISPRO 100 UNITS/ML PEN SUBCU ONE (07:42)
[2019-08-27] MEDS: MIDAZOLAM INJ 5 MG/5 ML VIAL ONE ×2 (07:47→08:25)
[2019-08-27] MEDS ORDERED: ROCURONIUM BROMIDE 10 MG/ML VIAL ONE (07:58)
[2019-08-27] MEDS ORDERED: fentaNYL CITRATE INJ 50 MCG/ML 2 ML AMP ONE (07:58)
[2019-08-27] MEDS ORDERED: KETAMINE HCL 100 MG/ML VIAL ONE (08:03)
[2019-08-27] MEDS ORDERED: LEVALBUTEROL NEBS 1.25 MG/3 ML VIAL NEB ONE ×2 (08:55→09:55)
[2019-08-27] MEDS ORDERED: SUGAMMADEX SODIUM 200 MG/2 ML VIAL IV ONE (08:57)
[2019-08-27] MEDS ORDERED: HYDROmorphone HCL INJ 2 MG/ML VIAL ONE ×2 (08:57→09:57)
[2019-08-27] MEDS ORDERED: LACTATED RINGERS 1,000 ML IVS ONE (09:38)
[2019-08-27] MEDS ORDERED: HYDROmorphone HCL INJ 2 MG/ML VIAL IV ONE ×2 (10:00→10:10)
[2019-08-27] MEDS ORDERED: hydrALAZINE HCl 20 MG/ML VIAL ONE (10:04)
[2019-08-27] MEDS ORDERED: hydrALAZINE HCl 20 MG/ML VIAL IV ONE (10:10)
[2019-08-27] MEDS ORDERED: HYDROcodone 5MG/APAP 325MG 1 EA TAB ONE (10:50)
--- NOTE | 2019-08-27 11:18 | OP ---
DATE OF PROCEDURE: 08/27/19 PREOPERATIVE DIAGNOSIS: 1. Chronic cholecystitis. POSTOPERATIVE DIAGNOSIS: 1. Chronic cholecystitis. 2. Macronodular cirrhosis. PROCEDURE: 1. Laparoscopic cholecystectomy. 2. Wedge liver biopsy. SURGEON: Andi Galeano MD. ANESTHESIA: General. FINDINGS: Very obese, but the duct was very short down in her heavy liver, so cholangiogram was not performed. The liver showed macronodular cirrhosis, so a wedge biopsy was performed off the anterior mid-edge. COMPLICATIONS: None. ESTIMATED BLOOD LOSS: Minimal. SPECIMEN: Gallbladder with stones and liver. PLAN: Discharge. INDICATION: This is a 59-year-old woman with obesity, hepatitis C, diabetes, history of amputations, very ill woman with chronic, unrelenting pain related to her gallbladder, so we decided to proceed with surgery even during the restricted period from to avoid potential complication in this comorbid bound woman if she got a badly infected gallbladder. PROCEDURE: She was consented and brought to the Operating Suite in supine position. General anesthesia was induced. The patient was prepped and draped in sterile fashion. Marcaine 0.5% with epinephrine was used at all incision sites. While maintaining upward traction, a sabina was made near the base of the umbilicus. Veress needle was introduced. There was free flow of fluid into the peritoneal cavity which was insufflated to an appropriate level with CO2 gas. The 5 mm trocar was placed followed by the camera. There was no evidence of bleeding or bowel injury. The patient was positioned and subxiphoid and lateral ports were placed. The gallbladder fundus was identified and grasped superiorly and laterally. Due to her obesity and heavy liver from macronodular cirrhosis, it was difficult to get to the infundibulum. I had to add another port to allow us to grab the gallbladder and retract the liver up more. This was effective. The infundibulum was then grasped with cautery and freeing up the lateral edges, we were able then to dissect out the infundibulum. The artery was clipped first and we got down and identified the duct. Again, it was very short and hazardous to try to perform a cholangiogram. She had no evidence of common bile duct stones, so the duct was triply ligated as well. The gallbladder was then dissected off the fossa in toto and removed in the EndoCatch bag. We examined it on the back table. There were black, irregular stones of various sizes, probably 8 stones, some very small and the largest about 1 cm. Once this was done, the clips were examined and they were intact. There was no bleeding or bile leak. The area was irrigated. All aspirate was clear. We then performed an anterior wedge liver biopsy with the scissors and then cauterized that area to control bleeding. It was also sent as specimen. The subxiphoid fascia was then closed with 0 Vicryl using the suture passer. It was airtight and non- bleeding. The remaining trocars were removed. There was no bleeding from the trocar sites. The wounds were irrigated and closed with Monocryl. Dressings were applied. The patient was awakened and taken to Recovery to be discharged. #[id number] cc: Dr. Jevon HINSON
[2019-08-27 11:48] VITALS: BP 128/50; TEMP 96.9; O2SAT 96
== END 2019-08-27 11:30 | disposition home or self-care (01) ==
LOC: AMB 07:00
PROVIDERS: ATTEND Surgery
DX: K80.10 Calculus of gallbladder with chronic cholecystitis without obstruction (principal); K74.69 Other cirrhosis of liver; B19.20 Unspecified viral hepatitis C without hepatic coma; J44.9 Chronic obstructive pulmonary disease, unspecified; E11.9 Type 2 diabetes mellitus without complications; I10 Essential (primary) hypertension; G47.33 Obstructive sleep apnea (adult) (pediatric); E66.09 Other obesity due to excess calories; F17.210 Nicotine dependence, cigarettes, uncomplicated; K21.9 Gastro-esophageal reflux disease without esophagitis; F32.9 Major depressive disorder, single episode, unspecified; R51 Headache; I48.92 Unspecified atrial flutter; M19.90 Unspecified osteoarthritis, unspecified site; M54.16 Radiculopathy, lumbar region; Z88.8 Allergy status to other drugs, medicaments and biological substances; Z91.048 Other nonmedicinal substance allergy status; Z89.612 Acquired absence of left leg above knee; Z79.899 Other long term (current) drug therapy; Z79.4 Long term (current) use of insulin; Z79.01 Long term (current) use of anticoagulants
CPT/HCPCS: 00790; 36415; 36416; 47100; 47562; 82948; 85025; A4216; J0360; J1170; J1815; J2250; J2405; J2780; J3010; J3475; J3490; J7120; J7614

== ENCOUNTER → 2019-08-28 | Outpatient (CLI) | payer MEDICARE, MEDICAID | LOC: HHH 10:26 | PROVIDERS: ATTEND Emergency Medicine | DX: E87.1 Hypo-osmolality and hyponatremia (principal) ==

== ENCOUNTER → 2019-09-02 | Outpatient (CLI) | payer MEDICARE, MEDICAID | LOC: HHH 11:59 | PROVIDERS: ATTEND Emergency Medicine | DX: N39.0 Urinary tract infection, site not specified (principal) ==

== ENCOUNTER → 2019-09-04 | Outpatient (CLI) | payer MEDICARE, MEDICAID | LOC: HHH 11:03 | PROVIDERS: ATTEND Emergency Medicine | DX: E87.1 Hypo-osmolality and hyponatremia (principal); B18.2 Chronic viral hepatitis C ==

== ENCOUNTER → 2019-09-10 | Outpatient (CLI) | payer MEDICARE, MEDICAID ==
--- NOTE | 2019-09-10 10:49 | US ---
EXAM DESCRIPTION: Abdomen,Limited: ULTRASOUND. CLINICAL HISTORY: ASCITES COMPARISON: Gallbladder ultrasound June 19. TECHNIQUE: Transabdominal scanning: rowan-scale mode. Doppler mode. FINDINGS: Ascites visualized in all 4 quadrants. Echogenic liver. Right kidney: long axis measures 11.6 cm. Normal cortical Echogenicity. Normal cortical thickness. No echogenic stones or hydronephrosis. IMPRESSION: Ascites in all 4 quadrants of the abdomen. Steatosis of the liver. Right kidney unremarkable. Electronically signed by: Supa Pan MD 09/10/2019 10:47 AM CDT
== END ==
LOC: US 08:29
PROVIDERS: ATTEND Surgery
DX: R18.8 Other ascites (principal); K76.0 Fatty (change of) liver, not elsewhere classified

== ENCOUNTER → 2019-09-16 | Outpatient (CLI) | payer MEDICARE, MEDICAID ==
--- NOTE | 2019-09-16 15:31 | US ---
EXAM DESCRIPTION: Abdomen,Limited: ULTRASOUND. CLINICAL HISTORY: ASCITES/CIRRHOSIS COMPARISON: Ultrasound abdomen September 09. TECHNIQUE: Transabdominal scanning: rowan-scale mode. Doppler mode. FINDINGS: Minimal fluid noted in both lower quadrants. Also minimal fluid noted above the urinary bladder. Decreased amount of fluid compared to the prior study. IMPRESSION: Minimal fluid in the bilateral lower quadrants of the abdomen, insufficient amount to attempt paracentesis. Electronically signed by: Supa Pan MD 09/16/2019 3:30 PM CDT
== END ==
LOC: US 09:30
PROVIDERS: ATTEND Surgery
DX: R18.8 Other ascites (principal); K74.60 Unspecified cirrhosis of liver

== ENCOUNTER → 2019-09-18 | Outpatient (CLI) | payer MEDICARE, MEDICAID | LOC: HHH 11:14 | PROVIDERS: ATTEND Emergency Medicine | DX: E87.1 Hypo-osmolality and hyponatremia (principal) ==

== ENCOUNTER → 2019-09-25 | Outpatient (CLI) | payer MEDICARE, MEDICAID | LOC: HHH 08:50 | PROVIDERS: ATTEND Emergency Medicine | DX: E87.1 Hypo-osmolality and hyponatremia (principal) ==

== ENCOUNTER → 2019-10-02 | Outpatient (CLI) | payer MEDICARE, MEDICAID | LOC: HHH 10:07 | PROVIDERS: ATTEND Emergency Medicine | DX: E87.1 Hypo-osmolality and hyponatremia (principal) ==

== ENCOUNTER → 2019-10-08 | Outpatient (CLI) | payer MEDICARE, MEDICAID | LOC: HHH 10:18 | PROVIDERS: ATTEND Emergency Medicine | DX: E87.1 Hypo-osmolality and hyponatremia (principal) ==

== ENCOUNTER → 2019-10-16 | Outpatient (CLI) | payer MEDICARE, MEDICAID | LOC: HHH 10:10 | PROVIDERS: ATTEND Emergency Medicine | DX: E87.1 Hypo-osmolality and hyponatremia (principal); M06.9 Rheumatoid arthritis, unspecified; M10.9 Gout, unspecified ==

== ENCOUNTER → 2019-10-23 | Outpatient (CLI) | payer MEDICARE, MEDICAID | LOC: HHH 11:02 | PROVIDERS: ATTEND Emergency Medicine | DX: E11.22 Type 2 diabetes mellitus with diabetic chronic kidney disease (principal); N18.9 Chronic kidney disease, unspecified ==

== ENCOUNTER → 2019-10-30 | Outpatient (CLI) | payer MEDICARE, MEDICAID | LOC: HHH 10:17 | PROVIDERS: ATTEND Emergency Medicine | DX: E87.1 Hypo-osmolality and hyponatremia (principal); R77.1 Abnormality of globulin ==

== ENCOUNTER → 2019-11-04 | Outpatient (CLI) | payer MEDICARE, MEDICAID | LOC: HHH 12:23 | PROVIDERS: ATTEND Emergency Medicine | DX: E87.1 Hypo-osmolality and hyponatremia (principal) ==

== ENCOUNTER → 2019-11-18 | Outpatient (CLI) | payer MEDICARE, MEDICAID | LOC: HHH 11:56 | PROVIDERS: ATTEND Emergency Medicine | DX: I13.0 Hypertensive heart and chronic kidney disease with heart failure and stage 1 through stage 4 chronic kidney disease, or unspecified chronic kidney disease (principal); N18.9 Chronic kidney disease, unspecified; E11.22 Type 2 diabetes mellitus with diabetic chronic kidney disease ==

== ENCOUNTER → 2019-12-02 | Outpatient (CLI) | payer MEDICARE, MEDICAID | LOC: HHH 10:54 | PROVIDERS: ATTEND Emergency Medicine | DX: I13.0 Hypertensive heart and chronic kidney disease with heart failure and stage 1 through stage 4 chronic kidney disease, or unspecified chronic kidney disease (principal); N18.9 Chronic kidney disease, unspecified; E11.22 Type 2 diabetes mellitus with diabetic chronic kidney disease; I50.9 Heart failure, unspecified ==

== ENCOUNTER → 2019-12-07 | Outpatient (CLI) | payer MEDICARE, MEDICAID | LOC: HHH 10:37 | PROVIDERS: ATTEND Emergency Medicine | DX: E87.1 Hypo-osmolality and hyponatremia (principal); N39.0 Urinary tract infection, site not specified ==

== ENCOUNTER → 2020-01-15 | Outpatient (CLI) | payer MEDICARE, MEDICAID | LOC: HHH 09:24 | PROVIDERS: ATTEND Emergency Medicine | DX: Z51.81 Encounter for therapeutic drug level monitoring (principal); N39.0 Urinary tract infection, site not specified ==

== ENCOUNTER → 2020-01-20 | Outpatient (CLI) | payer MEDICARE, MEDICAID | LOC: HHH 10:09 | PROVIDERS: ATTEND Emergency Medicine | DX: E87.1 Hypo-osmolality and hyponatremia (principal) ==

== ENCOUNTER 2020-02-19 14:47 | Emergency (ER) | payer MEDICARE, MEDICAID ==
[2020-02-19] MEDS ORDERED: MORPHINE SULFATE INJ 10 MG/ML VIAL ONE (15:04)
[2020-02-19] MEDS ORDERED: MORPHINE SULFATE INJ 10 MG/ML VIAL IM ONE (15:07)
[2020-02-19] MEDS ORDERED: LIDOCAINE 1% 10 ML VIAL INJ ONE ×2 (15:09→15:15)
[2020-02-19] MEDS ORDERED: TETANUS,DIPHTHERIA,PERTUSSIS 1 EA SYG IM ONE (15:33)
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
[2020-02-19 16:58] VITALS: BP 125/79; TEMP 97.3; O2SAT 98
== END 2020-02-19 16:15 | disposition home or self-care (01) ==
LOC: ER 14:47
DX: S81.811A Laceration without foreign body, right lower leg, initial encounter (principal); E11.9 Type 2 diabetes mellitus without complications; R20.2 Paresthesia of skin; J44.9 Chronic obstructive pulmonary disease, unspecified; I48.91 Unspecified atrial fibrillation; I50.9 Heart failure, unspecified; I11.0 Hypertensive heart disease with heart failure; K21.9 Gastro-esophageal reflux disease without esophagitis; F32.9 Major depressive disorder, single episode, unspecified; W22.09XA Striking against other stationary object, initial encounter; Z89.612 Acquired absence of left leg above knee; Z88.8 Allergy status to other drugs, medicaments and biological substances; Z79.899 Other long term (current) drug therapy; Z86.14 Personal history of Methicillin resistant Staphylococcus aureus infection; Z86.73 Personal history of transient ischemic attack (TIA), and cerebral infarction without residual deficits; Z87.891 Personal history of nicotine dependence; Y93.89 Activity, other specified; Y92.9 Unspecified place or not applicable; Z79.01 Long term (current) use of anticoagulants
CPT/HCPCS: 90471; 90715; J2270

== ENCOUNTER → 2020-02-24 | Outpatient (CLI) | payer MEDICARE, MEDICAID | LOC: HHH 11:38 | PROVIDERS: ATTEND Emergency Medicine | DX: E87.1 Hypo-osmolality and hyponatremia (principal) ==

== ENCOUNTER → 2020-03-02 | Outpatient (CLI) | payer MEDICARE, MEDICAID | LOC: HHH 11:38 | PROVIDERS: ATTEND Emergency Medicine | DX: E87.1 Hypo-osmolality and hyponatremia (principal) ==

== ENCOUNTER 2020-03-17 09:48 | Emergency (ER) | payer MEDICARE, MEDICAID ==
[2020-03-17] MEDS ORDERED: ALBUTEROL INHALER 64 PUFF/8GM INH ONE (09:54)
[2020-03-17] MEDS ORDERED: methylPREDNISolone SODIUM SUC 125 MG/2 ML VIAL IV ONE (09:56)
[2020-03-17] MEDS ORDERED: ALBUTEROL SULFATE 2.5 MG/3 ML VIAL NEB ONE (10:13)
[2020-03-17] MEDS ORDERED: IPRATROPIUM/ALBUTEROL 3 ML VIAL NEB ONE ×2 (10:26)
--- NOTE | 2020-03-17 10:41 | RAD ---
EXAM DESCRIPTION: Chest,1 View CLINICAL HISTORY: 59 years Female, sob COMPARISON: None. TECHNIQUE: AP portable chest. FINDINGS: Heart size is large with increased pulmonary vascularity. Central line from the right upper extremity is seen with tip in the upper right atrial region proximally 2 cm below the SVC-right atrial junction. No consolidating infiltrate. No pulmonary mass or worrisome nodule. No pneumothorax or pleural effusion. Bones are unremarkable. IMPRESSION: Large heart with increased vascularity. Electronically signed by: Jm Weathers MD 03/17/2020 10:40 AM [facility]
[2020-03-17] MEDS ORDERED: MAGNESIUM SULFATE PREMIX 2GM 2 GM in PREMIX BAG 1 BAG IVPB ONE (10:50)
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
[2020-03-17] MEDS ORDERED: cefTRIAXone SODIUM 1 GM in SODIUM CHL 0.9% 50ML MIN-BAG+ 50 ML IVPB ONE (13:24)
--- NOTE | 2020-03-17 13:30 | CT ---
EXAM DESCRIPTION: Head CLINICAL HISTORY: ams COMPARISON: October 27, 2016 TECHNIQUE: Non contrast cranial CT This exam was performed according to our departmental dose-optimization program, which includes automated exposure control, adjustment of the mA and/or kV according to patient size and/or use of iterative reconstruction technique. Image quality mildly decreased secondary to motion artifact and rotation of the patient. FINDINGS: Ventricles and sulci are unremarkable for age. No midline shift or mass effect noted. There is no hemorrhage or mass or subdural hematoma. There are no significant white matter abnormalities detected. The calvarium is unremarkable. The visualized paranasal sinuses and the mastoids are clear. IMPRESSION: 1. No acute intracranial process identified. Electronically signed by: Wade Hackett MD 03/17/2020 1:29 PM [facility]
[2020-03-17] MEDS ORDERED: FUROSEMIDE INJ 20 MG/2 ML VIAL IV ONE (13:35)
--- NOTE | 2020-03-17 13:43 | CT ---
EXAM DESCRIPTION: Abdoment/Pelvis w/o Contrast CLINICAL HISTORY: 59 years, 59 years, Female, Female, abd pain COMPARISON: September 08, 2018 TECHNIQUE: CT of the abdomen and pelvis is performed according to our non contrast protocol This exam was performed according to our departmental dose-optimization program, which includes automated exposure control, adjustment of the mA and/or kV according to patient size and/or use of iterative reconstruction technique. Image quality markedly limited by patient's body habitus and extensive out of field artifact along the left side. FINDINGS: Pleural effusion and basilar atelectasis at the left lung base evident and new from prior remote study. No free abdominal air seen. Diffuse subcutaneous edema surrounding the lower chest and abdomen and pelvis circumferentially consistent with anasarca noted. No gross abnormality of the right lobe of the liver noted. Mild right upper quadrant ascites evident. Moderate splenomegaly and modest enlargement of the left lobe of the liver present. No focal lesion. Prior cholecystectomy noted without ductal dilation. Fatty atrophy of the pancreas without focal mass noted. Small normal adrenal glands. Aortic atherosclerosis without aneurysm without retroperitoneal adenopathy Normal-appearing unenhanced kidneys without evidence of hydronephrosis. No large renal mass or cyst seen. No hydronephrosis or intrarenal stone disease. Incompletely distended stomach and normal caliber small bowel. At least some of the abdominal cavity extends beyond the field of imaging on the left with modest left paracolic gutter ascites evident. Small amount of paracolic fluid surrounds the cecum. No evidence of ileus or bowel obstruction noted with stool-filled right colon and air-filled transverse colon. Urine distended bladder with small anteverted uterus. No adnexal mass or inguinal mass or adenopathy or pelvic sidewall disease. Significant fluid within the cul-de-sac not apparent. Normal alignment of the spine without compression deformity. Intact anterior abdominal wall in the midline into the right of midline with incomplete visualization on the left anteriorly. IMPRESSION: 1. Very suboptimal study secondary to patient's body habitus and out of field artifact on the left laterally and anteriorly and extensive anasarca of the subcutaneous soft tissues diminishing image quality. 2. Layering left pleural effusion and small amount of infiltrate/atelectasis left posterior costophrenic angle. 3. Mild abdominal and pelvic ascites including the paracolic gutters moderate enlargement left lobe of the liver and moderate splenomegaly. 4. Diffuse subcutaneous edema circumferentially around the stomach and lower chest consistent with anasarca. 5. Prior cholecystectomy without ductal dilation. Electronically signed by: Wade Hackett MD 03/17/2020 1:41 PM [facility]
--- NOTE | 2020-03-17 13:52 | CT ---
EXAM DESCRIPTION: Chest w/o Contrast CLINICAL HISTORY: 59 years, Female, sob COMPARISON: September 13, 2013 TECHNIQUE: Thin-section noncontrast axial CT images are obtained according to our protocol. Reconstructed MPR images are created and reviewed as well. This exam was performed according to our departmental dose-optimization program, which includes automated exposure control, adjustment of the mA and/or kV according to patient size and/or use of iterative reconstruction technique. FINDINGS: Noncontrast imaging demonstrates modest cardiomegaly, unchanged from 2014. There is new small layering pleural effusion and dependent infiltrate/atelectasis in the posterior left costophrenic angle, not evident on prior study. Small amount of pleural fluid tracks into the lateral extent of the major fissure. No significant pericardial effusion. Right-sided PICC catheter extending to at or just below the cavoatrial junction noted. On the right minor linear atelectasis in the posterior lateral lower lung field is present without dense consolidation. No significant pleural fluid. On the left basilar changes described above with crowded markings. No evidence of pneumothorax or mass. At the thoracic inlet approximate 2 cm right lobe thyroid nodule. When clinically stable consider thyroid sonography for further evaluation. No left-sided abnormalities. In the superior mediastinum on the left, several upper normal reactive lymph nodes evident and new from 2014 examination. These are up to 1.5 cm in maximal length. Additional middle mediastinal or hilar lymphadenopathy not apparent. IMPRESSION: 1. Abnormal chest with small lung volumes with essentially clear right lung except for linear atelectasis posterior lateral lung base. 2. Small layering pleural effusion on the left with adjacent compressive atelectasis or infiltrate in the posterior costophrenic angle. 3. Reactive upper normal approximate 1.5 cm left superior mediastinal lymph nodes, new from 2014. 4. 2 cm low-density nodule right lobe of the thyroid. Thyroid sonography when able recommended. Electronically signed by: Wade Hackett MD 03/17/2020 1:51 PM [employer]
[2020-03-17] MEDS ORDERED: MORPHINE SULFATE INJ 10 MG/ML VIAL ONE (14:13)
[2020-03-17] MEDS ORDERED: MORPHINE SULFATE INJ 10 MG/ML VIAL IV ONE (14:16)
--- NOTE | 2020-03-17 14:46 | US ---
EXAM DESCRIPTION: Venous,Lower Extremity RT: ULTRASOUND. CLINICAL HISTORY: swelling elevated d-dimer COMPARISON: None Available. TECHNIQUE: Noonan-scale and doppler sonographic evaluation of the deep venous system of the right lower extremity. FINDINGS: Doppler evaluation shows normal color flow and normal phasicity and augmentation of the right common femoral vein, right femoral vein, popliteal vein, right greater saphenous vein, junction with the CFV. Also normal color flow and normal phasicity and augmentation of the peroneal, and posterior tibial vein. The right lower extremity deep veins were completely compressible; normal occlusion with transducer pressure. Noonan-scale survey showed no echogenic thrombus within these veins. IMPRESSION: 1. Duplex ultrasound evaluation of the right lower extremity deep venous system showing no evidence of thrombosis. Electronically signed by: Supa Pan MD 03/17/2020 2:45 PM [employer]AK[employer] SUPERVISOR
[2020-03-17] MEDS ORDERED: HYDROmorphone HCL INJ 2 MG/ML VIAL IV ONE ×2 (15:01→19:20)
[2020-03-17] MEDS ORDERED: fentaNYL CITRATE INJ 50 MCG/ML 2 ML AMP IV ONE (16:15)
[2020-03-17] MEDS ORDERED: MAGNESIUM SULFATE INJ 1 GM in SODIUM CHLORIDE 0.9% 100ML 100 ML IVPB ONE (17:50)
[2020-03-17] MEDS ORDERED: ACETAMINOPHEN IV 1000MG 1,000 MG in PREMIX BOTTLE 1 BOTTLE IVPB ONE (17:50)
[2020-03-17] MEDS ORDERED: POTASSIUM CHLORIDE ELIXIR 20 MEQ/15 ML UD ONE (17:51)
[2020-03-17] MEDS: POTASSIUM CHLORIDE 20 MEQ TAB PO ONE ×2 (18:02→19:09)
[2020-03-17] MEDS ORDERED: POTASSIUM CHLORIDE ELIXIR 20 MEQ/15 ML UD PO ONE (18:02)
[2020-03-17] MEDS ORDERED: POTASSIUM CHLORIDE 20 MEQ TAB ONE (19:08)
[2020-03-17] MEDS ORDERED: HYDROmorphone HCL INJ 2 MG/ML VIAL ONE (19:22)
[2020-03-17 19:42] VITALS: BP 99/55; TEMP 98.2; O2SAT 93
== END 2020-03-17 19:41 | disposition short-term general hospital (02) ==
LOC: ER 09:48
DX: J44.1 Chronic obstructive pulmonary disease with (acute) exacerbation (principal); E87.6 Hypokalemia; E83.42 Hypomagnesemia; R18.8 Other ascites; R10.84 Generalized abdominal pain; R21 Rash and other nonspecific skin eruption; E11.9 Type 2 diabetes mellitus without complications; K74.60 Unspecified cirrhosis of liver; I48.91 Unspecified atrial fibrillation; I50.9 Heart failure, unspecified; I11.0 Hypertensive heart disease with heart failure; K21.9 Gastro-esophageal reflux disease without esophagitis; Z20.828 Contact with and (suspected) exposure to other viral communicable diseases; Z86.19 Personal history of other infectious and parasitic diseases; Z86.73 Personal history of transient ischemic attack (TIA), and cerebral infarction without residual deficits; F32.9 Major depressive disorder, single episode, unspecified; Z87.891 Personal history of nicotine dependence; Z86.14 Personal history of Methicillin resistant Staphylococcus aureus infection; Z79.899 Other long term (current) drug therapy; Z79.01 Long term (current) use of anticoagulants; Z88.8 Allergy status to other drugs, medicaments and biological substances
CPT/HCPCS: 36415; 36600; 70450; 71045; 71250; 74176; 80053; 82140; 82550; 82803; 82805; 82945; 83615; 83735; 83880; 84157; 84443; 84484; 85025; 85379; 85610; 85730; 86140; 87040; 87205; 87486; 87581; 87633; 87635; 93005; 93971; 94640; 94660; 94760; J0696; J1170; J1940; J2060; J2270; J2930; J3010; J3475; J7050; J7611; J7620

== ENCOUNTER → 2020-03-25 | Outpatient (CLI) | payer MEDICARE, MEDICAID | LOC: HHH 10:39 | PROVIDERS: ATTEND Emergency Medicine | DX: I13.0 Hypertensive heart and chronic kidney disease with heart failure and stage 1 through stage 4 chronic kidney disease, or unspecified chronic kidney disease (principal); N18.9 Chronic kidney disease, unspecified; E11.22 Type 2 diabetes mellitus with diabetic chronic kidney disease ==

== ENCOUNTER → 2020-04-20 | Outpatient (CLI) | payer MEDICARE, MEDICAID | LOC: HHH 09:38 | PROVIDERS: ATTEND Emergency Medicine | DX: E87.1 Hypo-osmolality and hyponatremia (principal) ==